=== PATIENT | male | born 1970 | race Caucasian/White ===

== ENCOUNTER → 2020-05-06 15:47 | Outpatient (CLI) | payer OTHER, SELFPAY ==
--- NOTE | 2020-05-06 07:05 | COLBX_PTH ---
PATIENT: HETAL HUSAIN LOC: [facility] U#:[id number] AGE/SX: 54/M ROOM: RE05/06/[address]: Dr. Terrence Hassan MD : 1970 BED: DIS: SPEC #: [id number] RECD: 05/06/20 15:01 STATUS: AMARIS RAE #: [id number] HEMA: 05/06/20 07:[address]: Terrence Hassan DEPT: SURGICAL PATHOLOGY RECD BY: Linda Bocanegra Tissues: Rectosigmoid junction Procedures: Surgery Specimen Level IV HEADER OPERATION: Colonoscopy with cold snare PRE-OP DIAGNOSIS: Z10.11 TISSUE SUBMITTED: Rectosigmoid colon polyp MICROSCOPIC DIAGNOSIS Rectosigmoid polyp, biopsy: Hyperplastic polyp. SJ:ralph 05/08/20 MICROSCOPIC DESCRIPTION Slides are reviewed. GROSS DESCRIPTION Received in fixative is one container labeled with the patient's name and designated rectosigmoid colon polyp. The specimen consists of one irregular fragment of light bates soft tissue that measures 0.3 x 0.1 x 0.1 cm. The specimen is totally submitted in one cassette. / SJ:ralph 05/07/20 TC:1 CPT: 45377
== END ==
PROVIDERS: Referring Provider Surgery; Visit Provider Surgery
DX: Z12.11 Encounter for screening for malignant neoplasm of colon (principal)
CPT/HCPCS: 88305

== ENCOUNTER → 2020-09-17 13:15 | Outpatient (CLI) | payer OTHER, SELFPAY ==
--- NOTE | 2020-09-17 13:19 | CT_ITS ---
STUDY: CT FACIAL BONES WITHOUT CONTRAST REASON FOR EXAM: Male, 49 years old. SINUSITIS RADIATION DOSAGE (If Supplied By Facility): CTDIvol = ( 33.45 ) mGy, DLP = ( 868.36 ) mGycm TECHNIQUE: The patient was scanned in a multi detector CT scanner. Sagittal and coronal images were reconstructed. Individualized dose optimization techniques were used for this CT. COMPARISON: None. FINDINGS: Normal soft tissue structures. Normal orbital iniguez and orbital contents. Normal nasal bones and anterior nasal spine. Normal facial bones. There is no demonstrated fracture. Air-fluid level within the posterior left maxillary sinus suggests acute maxillary sinusitis there is diffuse mucosal thickening in the bilateral ethmoid sinuses Left mastoid air cells are unremarkable, right side are fluid-filled suggesting chronic mastoiditis. There is also some sclerosis of the right mastoid again consistent with chronic right mastoiditis CT/Sinus/Facial Bone IMPRESSION: Likely acute left maxillary sinusitis Mild to moderate bilateral ethmoid sinusitis Chronic right mastoiditis Electronically Signed: Praveen Drake MD at 16:25 EST , Service support ,
== END ==
PROVIDERS: PCP Family Medicine; Referring Provider Otolaryngology; Visit Provider Otolaryngology
DX: J32.8 Other chronic sinusitis (principal)
CPT/HCPCS: 70486

== ENCOUNTER → 2020-09-22 14:50 | Outpatient (CLI) | payer OTHER, SELFPAY | PROVIDERS: PCP Family Medicine; Referring Provider Otolaryngology; Visit Provider Otolaryngology | DX: Z03.818 Encounter for observation for suspected exposure to other biological agents ruled out (principal) | CPT/HCPCS: 87635; C9803; U0002 ==

== ENCOUNTER 2021-05-13 07:28 | Emergency (ER) | payer OTHER, SELFPAY ==
[2021-05-13 07:29] VITALS: BP 169/98; PULSE 77; RESP 16; TEMP 35.6; O2SAT 97; BMI 37.6
--- NOTE | 2021-05-13 08:03 | EDS_ITS ---
HPI History of Present Illness Chief Complaint: Back Informant: patient and spouse/S.O. Onset/Context/Timing Onset: Days Context: Gradual Onset Timing: Continuous Quality: Sharp Current Severity: Mild Maximum Severity: Moderate Worsened by: improves with Movement Relieved by: Remaining Still Associated Symptoms Associated Symptoms: Radiation to Right Leg; Negative for Numbness, Tingling, Abdominal Pain, Dysuria, Urinary Retention, Urinary Incontinence, Constipation and Fecal Incontinence Narrative Narrative: 50-year-old male right lower back pain rating on his buttocks. Down his right leg. Denies any trauma. No fever. No back history of prior back surgery. No known injury. Worse with movement. Better remaining still. No bowel or bladder incontinence or retention. Prior similar symptoms: No Recent Illness/Hospitalization: No PFSH PFSH Medical History Depression Diabetes mellitus HTN (hypertension) Hyperlipidemia Home Medications atorvastatin 10 mg PO QHS 05/13/21 [History Last Taken Unknown] fluoxetine 20 mg PO DAILY 05/13/21 [History Last Taken Unknown] hydrochlorothiazide 25 mg PO DAILY 05/13/21 [History Last Taken Unknown] losartan 100 mg PO DAILY 05/13/21 [History Last Taken Unknown] metformin 500 mg PO BID 05/13/21 [History Last Taken Unknown] Allergy/AdvReac Type Severity Reaction Status Date / Time No Known Allergies Allergy Verified 05/13/21 07:31 Surgical History History of cholecystectomy Social History Smoking Status: Never smoker ROS ROS ED ROS Narrative Right lower back pain. Review of Systems ROS Unobtainable: Denies due to encephalopathy Constitutional Constitutional ED: Denies fever(s) Eyes Eyes: Denies change in vision ENT ENT ED: Denies ear pain Cardiovascular Cardiovascular: Denies chest pain Respiratory/Chest Respiratory/Chest: Denies dyspnea Gastrointestinal Gastrointestinal: Denies abdominal pain Genitourinary Genitourinary ED: Denies dysuria Musculoskeletal Musculoskeletal: Reports back pain; Denies myalgias Integumentary Denies rash Neurologic Neurologic: Denies headache(s) Psychiatric Psychiatric: Denies depression Endocrine Endocrinology: Denies polyuria Hematologic/Lymphatic Hematologic/Lymphatic: Denies easy bruising Allergic/Immunologic Allergic/Immunologic ED: Denies urticaria EXAM Physical Exam Narrative Exam Narrative: Middle-age male no acute distress vital signs stable afebrile. HEENT neck heart lung abdominal exams unremarkable. Abdomen is completely nontender. Spine nontender. From the cervical down to the lumbar. Tenderness over his right SI joint. Positive straight leg raise on the right. Both lower extremities are neurovascular intact with 5/5 motor strength. Normal sensation. No cauda equina. No saddle anesthesia. Normal medial thigh sensation. Worse with movement. Neurologic exam normal no focal motor deficits. Const Vital Signs: 05/13/21 07:29 Temperature 96.0 F L Temperature Source Temporal Pulse Rate 77 Respiratory Rate 16 Blood Pressure 169/98 H Blood Pressure Mean 121 Pulse Ox 97 Oxygen Delivery Method Room Air Positive well nourished, well developed and obese; Negative for cachectic, contractures or unkempt General Appearance ED: well developed and NAD; Negative for unkempt, cachectic, contractures or pallor Nutritional Appearance: obese; Negative for cachectic HEENT Reports moist mucous membranes Negative for trauma or tenderness Eyes PERRL and EOMs intact bilaterally Neck no lymphadenopathy and supple Resp normal respiratory effort and clear to auscultation bilaterally Effort and Inspection: Negative for pain with movement Auscultation: Negative for rales, rhonchi or wheezes Cardio regular rate, regular rhythm, S1 normal heart sound, S2 normal heart sound and no murmurs GI normal to inspection, nondistended, normoactive bowel sounds, soft to palpation, non-tender, non-distended and no masses Inspection: Negative for abdominal distention Auscultation: Negative for hyperactive bowel sounds Palpation: Negative for tender, guarding or rebound tenderness present Back/Spine no thoracic nor lumbar tenderness Back/Spine Narrative: Right SI tenderness. Positive straight leg raise on the right. General Back: Negative for CVA tenderness or scar(s) Cervical Spine: Negative for cervical spine tenderness and Negative for parac ervical muscle tenderness Thoracic Spine / Upper Back: Negative for paraspinal muscle tenderness Lumbar Spine / Lower Back: straight leg raise positive right; Negative for straight leg raise negative bilaterally Extremity normal to inspection General Extremety ED: Negative for edema or tenderness General Extremity: Negative for edema Psych mental status grossly normal Appearance: Negative for unkempt Skin no rashes or lesions noted and no wounds General Skin Exam: Negative for jaundice or pallor MDM MDM MDM Narrative Medical decision making narrative: Middle-age male exam and history are consistent with acute right sciatica. No signs of spinal cord compression. Treated with IM morphine, Toradol and p.o. Zofran. Discharged home on anti- inflammatories. Follow-up if not improving. Return if worse. Discussed at length with both he and his . Discharge Plan Triage Chief Complaint: Back ED Provider: Sharan Davila Dx/Rx/DC Orders Clinical Impression: Sciatica Instructions: ED Sciatica Prescriptions: No Action metformin 500 mg Tablet 500 mg PO BID RF: 0 atorvastatin 10 mg tablet 10 mg PO QHS RF: 0 hydrochlorothiazide 25 mg Tablet 25 mg PO DAILY RF: 0 losartan 100 mg Tablet 100 mg PO DAILY RF: 0 fluoxetine 20 mg Capsule 20 mg PO DAILY RF: 0 Primary Care Provider: Gonzalo Jack Referrals: Gonzalo Jack MD [Primary Care Provider] - 1 Week if not improving Activity Restrictions/Additional Instructions: Motrin 600 mg 3 to at most 4 times a day with food on your stomach. This should decrease inflammation and eventually start improving the pain. Ice to your right buttock area where it hurts the most. Follow-up with your doctor if not improving. Return to the emergency department if bowel or bladder incontinence or unable to urinate or move your bowels. Also if you would develop a fever or pain is significantly worse with weakness in your lower extremities. Disposition Disposition: Home, Self Care
[2021-05-13] MEDS: Ketorolac 60 MG/2 ML Vial IM (08:21)
[2021-05-13] MEDS: Ondansetron ODT 4 MG Tablet PO (08:21)
[2021-05-13] MEDS: morphine 10 MG/ML Syringe IM (08:22)
[2021-05-13 08:45] VITALS: BP 164/66; PULSE 75; RESP 16; O2SAT 98
== END 2021-05-13 08:46 | disposition home or self-care (01) ==
LOC: ED 08:11
PROVIDERS: Emergency Provider Emergency Medicine; PCP Family Medicine
DX: M54.31 Sciatica, right side (principal); E66.9 Obesity, unspecified; E78.5 Hyperlipidemia, unspecified; E11.9 Type 2 diabetes mellitus without complications; I10 Essential (primary) hypertension; F32.9 Major depressive disorder, single episode, unspecified; Z79.84 Long term (current) use of oral hypoglycemic drugs; Z79.899 Other long term (current) drug therapy
CPT/HCPCS: 96372; 99282

== ENCOUNTER 2024-03-04 20:15 | Emergency (ER) | payer OTHER, SELFPAY ==
[2024-03-04 20:15] VITALS: BP 193/100; PULSE 83; RESP 19; TEMP 36.2; O2SAT 97; BMI 36.9
--- NOTE | 2024-03-04 20:43 | CT_ITS ---
EXAM: CT HEAD WITHOUT INTRAVENOUS CONTRAST CLINICAL INDICATION: headache TECHNIQUE: Multiple axial images were obtained of the head without intravenous contrast. This CT exam was performed using one or more of the following dose reduction techniques: automated exposure control, adjustment of the mA and/or kV according to patient size, and/or use of iterative reconstruction technique. RADIATION DOSE: CTDIvol = 44.99 mGy, DLP = 863.60 mGy-cm COMPARISON: No relevant prior studies available. FINDINGS: BRAIN AND EXTRA-AXIAL SPACES: Unremarkable. No intra- or extra-axial hemorrhage. No evidence of acute infarct. No intracranial mass or mass effect. There is preservation of the mcmanus/white matter interface. Posterior fossa structures are unremarkable. Ventricles are appropriate for age. No hydrocephalus. Basal cisterns are patent. BONES/JOINTS: Unremarkable. No discrete lytic or blastic abnormalities. SINUSES: Unremarkable as visualized. Clear. MASTOID AIR CELLS: Unremarkable. Clear. ORBITS: Visualized globes, extraocular muscles, optic nerves and retrobulbar fat appear unremarkable. CT/Brain/Head without Contrast IMPRESSION: Negative head/brain CT without intravenous contrast. Electronically Signed: Donny Patel MD at 21:30 EDT ,
--- NOTE | 2024-03-04 20:44 | EKG12_ITS ---
Test Reason : CP Blood Pressure : / mmHG Vent. Rate : 075 BPM Atrial Rate : 075 BPM P-R Int : 156 ms QRS Dur : 092 ms QT Int : 420 ms P-R-T Axes : 052 043 020 degrees QTc Int : 469 ms Normal sinus rhythm Nonspecific T wave abnormality Abnormal ECG Confirmed by Naveed Brown ([id number]), field map editor MARY WALSH ([id number]) on 03/05/2024 7:38:40 AM Referred By: Confirmed By:Naveed Brown
--- NOTE | 2024-03-04 20:44 | ED.VIS.CHEST ---
HPI History of Present Illness Chief Complaint: Chest Pain Informant: patient and spouse/S.O. Narrative Narrative: 53-year-old male presenting to the emergency room with chest pain. Patient states that this morning prior to going shopping he developed a pressure in the right posterior aspect of his head. He notes a chest pressure. He notes a sensation that he just cannot seem to take a deep breath. He does not necessarily feel short of breath or breathing harder than normal. He notes some heartburn. He notes his blood pressure has been higher than normal. He had a recent increase of his HCTZ from 25 to 50 mg/day. No reported fevers. No known malignancies. He has blood pressures for the past several months on his phone. These are taken at different times day and at no specific intervals. Over the month of February his blood pressures have been around 1 6170 systolic and 90-100 diastolic. At the time of this dictation the monitor showing 185/93. Patient has been in a boot orthosis of the left foot and leg due to partial Achilles tendon tear surgery in January. [facility] Medical History Depression Hyperlipidemia Diabetes mellitus HTN (hypertension) Home Medications ?Medication ?Instructions ?Recorded ?Last Taken ?Type atorvastatin 10 mg tablet 10 mg PO QHS 05/13/21 Unknown History fluoxetine 20 mg capsule 20 mg PO DAILY 05/13/21 Unknown History hydrochlorothiazide 25 mg tablet 25 mg PO DAILY 05/13/21 Unknown History losartan 100 mg tablet 100 mg PO DAILY 05/13/21 Unknown History metformin 500 mg tablet 500 mg PO BID 05/13/21 Unknown History potassium chloride 20 mEq 20 meq PO DAILY #5 tabs 03/04/24 Unknown Rx tablet,extended release Allergy/AdvReac Type Severity Reaction Status Date / Time No Known Allergies Allergy Verified 03/04/24 20:16 Surgical History History of cholecystectomy Social History Smoking Status: Former smoker ROS ROS ED Constitutional Constitutional ED: Reports sweats; Denies chills, fever(s) or weight loss Eyes Eyes: Denies blurry vision, change in vision or diplopia ENT ENT ED: Denies ear pain, rhinorrhea or sore throat Cardiovascular Cardiovascular: Reports chest pain; Denies orthopnea, palpitations or racing heartbeat Respiratory/Chest Respiratory/Chest: Reports dyspnea; Denies cough or orthopnea Gastrointestinal Gastrointestinal: Reports other Details: Heartburn ; Denies abdominal pain, diarrhea, nausea or vomiting Genitourinary Genitourinary ED: Denies dysuria, hematuria or urinary frequency Musculoskeletal Musculoskeletal: Denies arthralgias, back pain or myalgias Integumentary Denies abscess or rash Neurologic Neurologic: Reports headache(s); Denies paresthesias or weakness Psychiatric Psychiatric: Denies anxiety, depression, suicidal ideation or suicidal thoughts Endocrine Endocrinology: Denies polydipsia, polyphagia or polyuria Allergic/Immunologic Allergic/Immunologic ED: Denies mouth swelling, tongue swelling or urticaria EXAM Physical Exam Const Vital Signs: 03/04/24 20:15 03/04/24 21:15 03/04/24 22:00 Temperature 97.2 F L Temperature Source Temporal Pulse Rate 83 80 72 Respiratory Rate 19 H 17 15 Blood Pressure 193/100 H 174/92 H 164/92 H Blood Pressure Mean 131 115 113 Pulse Ox 97 96 95 Oxygen Delivery Method Room Air Positive well nourished, well developed and obese General Appearance ED: well developed and NAD Nutritional Appearance: obese HEENT Reports normocephalic, head/scalp atraumatic and moist mucous membranes Eyes PERRL and EOMs intact bilaterally Neck no lymphadenopathy, supple and no JVD Resp normal respiratory effort and clear to auscultation bilaterally Cardio regular rate, regular rhythm and no murmurs GI normal to inspection, nondistended, normoactive bowel sounds and non-tender Palpation: soft Back/Spine no CVA tenderness and normal ROM Extremity normal to inspection General Extremety ED: Negative for edema General Extremity: Negative for edema Neuro oriented x3 and CN's II-XII intact bilaterally Sensorium / Orientation: alert Motor Exam: strength 5/5 throughout Psych mental status grossly normal Mood & Affect: Negative for depressed or tearful Skin no rashes or lesions noted and no wounds MDM MDM MDM Narrative Medical decision making narrative: Differential diagnosis includes but not limited to intracranial hemorrhage acute coronary syndrome pulmonary embolism pneumothorax hypertensive urgency/emergency electrolyte abnormalities acute kidney injury CT the brain demonstrates no acute findings. EKG is sinus rhythm with no ischemic changes. D-dimer and troponin are negative. BNP is 19.4. Normal creatinine at 0.89 with a BUN of 26 potassium slightly low at 3.2 hemoglobin 13.2 white count of 6.7. My independent interpretation of the chest x-ray is no acute process. Patient received supplemental potassium. His blood pressure is currently down to 164/92. Recommend continued oral potassium replacement. I recommend following up with primary care. Monitor for any changes return if worsening or concerns. History & Record Review Discussion w/independent historian: Patient and Significant other Lab Data Attestation: I reviewed the patient's lab results. Labs: Laboratory Results - last 24 hr 03/04/24 20:50 WBC 6.7 RBC 4.07 L Hgb 13.2 Hct 38.2 L MCV 93.9 MCH 32.4 H MCHC 34.6 RDW Std Deviation 42.1 RDW Coeff of Darrick 12.2 Plt Count 185 MPV 8.7 Immature Gran % (Auto) 0.300 Neut % (Auto) 44.7 L Lymph % (Auto) 41.6 H [place] % (Auto) 7.3 Eos % (Auto) 5.4 H Baso % (Auto) 0.7 Absolute Neuts (auto) 3.0 Absolute Lymphs (auto) 2.79 Nucleated RBC % 0 D-Dimer Quant (PE/DVT) < 0.27 L Sodium 140 Potassium 3.2 L Chloride 104 Carbon Dioxide 28.0 Anion Gap 8 BUN 26 H Creatinine 0.89 Estim Creat Clear Calc 125.16 Est GFR (MDRD) Af Amer 115 Est GFR (MDRD) Non-Af 95 BUN/Creatinine Ratio 29.3 H Glucose 133 H Calcium 9.9 Total Bilirubin 0.60 AST 51 H ALT 137 H Alkaline Phosphatase 57 Troponin I High Sens 8 B-Natriuretic Peptide 19.4 Total Protein 6.6 Albumin 3.5 Globulin 3.1 Albumin/Globulin Ratio 1.1 Radiography Diagnostic Testing: Clinical Impression(s) from Imaging Studies Brain CT 03/04/24 20:43 IMPRESSION: Negative head/brain CT without intravenous contrast. Electronically Signed: Donny Patel MD at 21:30 EDT , Chest X-Ray 03/04/24 21:10 IMPRESSION: No radiographic evidence of acute cardiopulmonary disease. Electronically Signed: Donny Patel MD at 21:30 EDT , EKG Initial EKG: Attestation: I personally reviewed and interpreted this EKG as follows: Comments: Normal sinus rhythm ventricular rate of [address] elevation or depression noted Discharge Plan Triage Chief Complaint: Chest Pain ED Provider: Mitch Perdue Dx/Rx/DC Orders Clinical Impression: Hypertension, Chest pain, Acute hypokalemia, Headache Instructions: ED Chest Pain, Uncertain Cause, ED Hypokalemia Prescriptions: New potassium chloride 20 mEq tablet extended release 20 meq PO DAILY Qty: 5 0RF No Action metformin 500 mg Tablet 500 mg PO BID atorvastatin 10 mg tablet 10 mg PO QHS hydrochlorothiazide 25 mg Tablet 25 mg PO DAILY losartan 100 mg Tablet 100 mg PO DAILY fluoxetine 20 mg Capsule 20 mg PO DAILY Primary Care Provider: Gonzalo Jack Referrals: Gonzalo Jack MD [Primary Care Provider] - 1 Week Print Language: Korean Disposition Disposition: Home, Self Care
[2024-03-04 21:03] LABS: Absolute Lymphocyte Count 2.79 X10^3/uL (0.83-4.51); Basophil# 0.05 X10^3/uL; Basophil% 0.7 % (0-1); Eosinophil# 0.36 X10^3/uL; Eosinophils% 5.4 % (0-5); Hematocrit 38.2 % (40-54); Hemoglobin 13.2 g/dL (13.0-16.5); Lymphocyte # 2.79 X10^3/ul (0.83-4.51); Lymphocyte % 41.6 % (19-41); Mean Corp Hgb Conc 34.6 g/dL (32-36); Mean Corpuscular Hgb 32.4 pg (27.0-32.0); Mean Corpuscular Volume 93.9 fL (80-94); Mean Platelet Vol. 8.7 fl (6.2-12.0); Monocyte# 0.49 X10^3/uL; Monocyte% 7.3 % (0-10); NRBC Flagged by Analyzer 0 % (0-5); Neutrophil # 2.99 X10^3/uL (2.7-7.7); Neutrophil % 44.7 % (47-70); Platelet Count 185 K/mm3 (150-450); RBC Distribution Width CV 12.2 % (11.6-14.6); RBC Distribution Width SD 42.1 fl (35.1-43.9); Red Blood Count 4.07 M/mm3 (4.6-6.2); White Blood Count 6.7 K/mm3 (4.4-11.0)
--- NOTE | 2024-03-04 21:10 | RAD_ITS ---
EXAM: XR CHEST, 1 VIEW CLINICAL INDICATION: chest pain TECHNIQUE: Frontal view of the chest. COMPARISON: No relevant prior studies available. FINDINGS: LUNGS AND PLEURAL SPACES: Unremarkable. No consolidation or edema. No pneumothorax. No effusion. HEART: Unremarkable. Cardiac silhouette not enlarged. MEDIASTINUM: Central airways and mediastinal contour are unremarkable. BONES/JOINTS: Unremarkable. No acute fracture. SOFT TISSUES: Unremarkable. RAD/Chest 1 View (Portable) IMPRESSION: No radiographic evidence of acute cardiopulmonary disease. Electronically Signed: Donny Patel MD at 21:30 EDT ,
[2024-03-04 21:15] VITALS: BP 174/92; PULSE 80; RESP 17; O2SAT 96
[2024-03-04 21:24] LABS: ALB/GLOB Ratio 1.1 RATIO (0.9-2.4); AST(SGOT) 51 U/L (15-37); Alanine Aminotransfer ALT/SGPT 137 U/L (16-61); Albumin, Serum 3.5 g/dL (3.2-5.0); Alkaline Phosphatase 57 U/L (45-117); Anion Gap 8 (5-15); BUN 26 mg/dL (7-18); BUN/Creat Ratio 29.3 RATIO (10-20); Calcium,Total 9.9 mg/dL (8.5-10.1); Chloride 104 mmol/L (98-107); Creatinine, Serum 0.89 mg/dL (0.70-1.30); EST Glomerular Filtration Rate 95 mL/min (>60); Est Glom Filt Rate - Afr Amer 115 mL/min (>60); Estimated Creatinine Clearance 125.16 ml/min; Globulin 3.1 g/dL (2.2-4.2); Glucose 133 mg/dL (74-106); Potassium 3.2 mmol/L (3.5-5.1); Protein, Total 6.6 g/dL (6.4-8.2); Sodium Level 140 mmol/L (136-145); Troponin-I HS 8 pg/mL (3.0-78.0)
[2024-03-04 21:25] LABS: BNP,B-Type NATRIURETIC PEPTIDE 19.4 pg/mL (0-100)
[2024-03-04 22:00] VITALS: BP 164/92; PULSE 72; RESP 15; O2SAT 95
[2024-03-04 22:14] LABS: D-Dimer Quantitative (DVT/PE) < 0.27 FEU/ug/m (0.27-0.49)
[2024-03-04] MEDS: Potassium Chloride Oral Tablet 20 MEQ PO (22:57)
[2024-03-04 23:00] VITALS: BP 167/89; PULSE 73; RESP 17; O2SAT 95
== END 2024-03-04 23:03 | disposition home or self-care (01) ==
PROVIDERS: Emergency Provider Emergency Medicine; PCP Family Medicine; Visit Provider Emergency Medicine
DX: I10 Essential (primary) hypertension (principal); E11.9 Type 2 diabetes mellitus without complications; R07.9 Chest pain, unspecified; R51.9 Headache, unspecified; E87.6 Hypokalemia; Z79.899 Other long term (current) drug therapy; Z87.891 Personal history of nicotine dependence
CPT/HCPCS: 70450; 71045; 80053; 83880; 84484; 85025; 85379; 93005; 99283

== ENCOUNTER 2025-04-05 15:56 | Emergency (ER) | payer OTHER, SELFPAY ==
[2025-04-05 15:58] VITALS: BP 145/97; PULSE 86; RESP 18; TEMP 36.8; O2SAT 97; BMI 36.6
--- OUTSIDE RECORDS SUMMARY | 2025-04-05 18:12 | XMS RPT_ITS ---
Author Name Auto Generated Organization OHIP Care Team Providers Care Right Of Way Supervisor Name Role Phone FRED MICHELE Attending Unavaila IKE Gerard Primary Care Unava ilable FRED MICHELE Referring Unavaila IKE Gerard Primary Care Unava ilable IKE JACK Referring Unavailab IKE Lam Primary Care Unavailab THAD Irby Attending Unavailable FRED MICHELE Referring IKE Patterson Primary Care Unavailab THAD Irby Attending Unavailable FRED MICHELE Referring EvelynvaIKE Alejandro Primary Care Unavailab THAD Irby Attending Unavailable FRED MICHELE Referring EvelynvaIKE Alejandro Primary Care Unavailab THAD Irby Attending Unavailable FRED MICHELE Referring EvelynvaIKE Alejandro Primary Care Unavailab IKE Lam Primary Care Unavailab IKE Lam Referring Unavailab IKE Lam Primary Care Unavailab IKE Lam Attending Unavailab IKE Lam Primary Care Unavailab IKE Lam Referring Unavailab IKE Lam Primary Care Unavailab IKE Lam Attending Unavailab IKE Lam Attending Unavailab IKE Lam Primary Care Unavailab IKE Lam Primary Care Unavailab IKE Lam Referring Unavailab le SELF Referring Unavailable IKE JACK Primary Care Unavailab le FRED MICHELE Attending IKE Patterson Primary Care Unavailab KRISTINA Crawford Attending Unavailable IKE JACK Primary Care Unavailab le TESTRAKEGRZEGORZ Attending Unavailable IKE JACK Primary Care Unavailab IKE Lam Primary Care Unavailab IKE Lam Attending Unavailab IKE Lam Primary Care Unavailab IKE Lam Referring Unavailab le IKE JACK Primary Care Unavailab le IKE JACK Attending Unavailab le IKE JACK Primary Care Unavailab le PODLOGLIDIA WHYTE Attending Unavailable IKE JACK Primary Care Unavailab IKE Lam Referring Unavailab THAD Irby Attending Unavailable FRED MICHELE Referring IKE Patterson Primary Care Unavailab le IKE JACK Attending Unavailab IKE Lam Primary Care Unavailab le IKE JACK Primary Care Unavailab IKE Lam Referring Unavailab le IKE JACK Primary Care Unavailab le PODLOGLIDIA WHYTE Attending Unavailable IKE JACK Primary Care Unavailab IKE Lam Referring Unavailab le IKE JACK Attending Unavailab IKE Lam Primary Care Unavailab le FRED MICHELE Attending IKE Patterson Primary Care Unavailab le PROBLEMS DATE TYPE CONDITION / CODE ATTENDING STATUS [facility] 04/05/2025 Active Insect bite of l eft forearm, initial encounter / S50.862A(ICD-10) KRISTINA AGUIRRE [facility] 04/05/2025 Active Insect bite of l eft forearm, initial encounter / W57.XXXA(ICD-10) KRISTINA AGUIRRE [facility] 03/13/2025 Admitting Diagnosis Achilles tendinitis, right leg / M76.61(ICD-10) FRED MICHELE [facility] 03/13/2025 Admitting Diagnosis Pain in right foot / M79.671(ICD-10) DAPHNEBarreraFRED MEZA [facility] 02/26/2025 Active Tinea pedis of b oth feet / B35.3(ICD-10) GRZEGORZ NASH [facility] 02/23/2025 Active Cellulitis of sk in / L03.90(ICD-10) IKE JACK [facility] 02/20/2025 Active Screening for prostate cancer / Z12.5(ICD-10) NA [facility] 05/18/2024 Active Primary hyperten wang / I10(ICD-10) IKE JACK [facility] 04/17/2021 Active Mixed hyperlipid emia / E78.2(ICD-10) IKE JACK [facility] 06/27/2020 Active Current moderate episode of major depressive disorder without prior episode (HCC) / F32.1(ICD-10) IKE JACK [facility] 07/14/2017 Active Sleep apnea, unspecified type / G47.30(ICD-10) IKE JACK [facility] 07/14/2017 Active Obesity (BMI 30-39.9) / E66.9(ICD-10) IKE JACK [facility] 02/20/2025 Active Annual physical exam / Z00.00(ICD-10) IKE JACK [facility] 02/20/2025 Active Tendonitis, Achilles, right / M76.61(ICD-10) IKE JACK [facility] 02/20/2025 Active Encounter for immunization / Z23(ICD-10) IKE JACK [facility] 11/30/2024 Active Erectile dysfunction, unspecified erectile dysfunction type / N52.9(ICD-10) NA [facility] 11/30/2024 Active Type 2 diabetes mellitus without complication, without long-term current use of insulin (HCC) / E11.9(ICD-10) IKE JACK [facility] 11/30/2024 Active Blood blister / T14.8XXA(ICD-10) IKE JACK [facility] 08/15/2024 Active Diabetes mellitu s type II (HCC) / E11.9(ICD-10) IKE JACK [facility] 11/16/2024 Active Essential hypertension / I10(ICD-10) IKE JACK [facility] 11/16/2024 Active Productive cough / R05.8(ICD-10) IKE JACK [facility] 05/18/2024 Active Resistant hypertension / I1A.0(ICD-10) NA [facility] 08/03/2024 Active Urinary frequenc y / R35.0(ICD-10) NA [facility] 08/03/2024 Active Glucosuria / R81(ICD-10) NA [facility] 07/17/2024 Active Localized swelli ng of left lower leg / R22.42(ICD-10) YOMAIRA [facility] 05/18/2024 Active Hypertension, unspecified type / I10(ICD-10) PODLOGLIDIA WHYTE [facility] 05/18/2024 Active Depression, unspecified depression type / F32.A(ICD-10) PODLOGLIDIA WHYTE [facility] 05/18/2024 Active Delayed ejaculat ion / 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 Author Type: Nurse Practitioner Type: Progress Notes Filed: 04/05/2025 19:11 Note Text: Jojo Husain is a 54 year old male. The history is provided by the patient. No assistant speech language pathologist was used. HPI Hetal Husain is a 54 year old male who presents today for CC of insect bite that occurred 4 days ago. He did not see the insect. He states he felt a sting on arm and then had itching after. He is having redness, warmth to touch with slight streaking, he denies any fever, chills body aches or swollen lymph nodes, no purulent drainage. He has not used any treatment or medications. SOCIAL HISTORY[1] PAST MEDICAL HISTORY Diagnosis Date Achilles tendinitis of left lower extremity Achilles tendinitis, left leg Current moderate episode of major depressive disorder without prior episode (HCC) Diabetes mellitus type II (HCC) Elevated LFTs Essential hypertension Hepatic steatosis Hyperplastic colonic polyp Hypertension Mixed hyperlipidemia Obesity (BMI 30-39.9) Sleep apnea not using CPAP Tobacco use disorder I have confirmed and edited as necessary, the [facility] Review of Systems Constitutional: Negative for fever. Musculoskeletal: Negative for arthralgias and neck pain. Skin: Negative for color change. Neurological: Negative for headaches. Psychiatric/Behavioral: Negative for confusion. Objective BP 146/93 Pulse 77 Temp 36.4 ?C (97.5 ?F) Resp 18 Wt 120 kg (264 lb 8.8 oz) SpO2 96% BMI 37.96 kg/m? Physical Exam Constitutional: General: He is not in acute distress. HENT: Head: Normocephalic and atraumatic. Eyes: Conjunctiva/sclera: Conjunctivae normal. Pupils: Pupils are equal, round, and reactive to light. Pulmonary: Effort: Pulmonary effort is normal. Musculoskeletal: Cervical back: Normal range of motion and neck supple. Skin: General: Skin is warm and dry. Findings: Erythema present. Comments: Insect bite with streaking noted. Slightly warm to touch. Neurological: Mental Status: He is alert and oriented to person, place, and time. ASSESSMENT/PLAN: 1. Insect bite of left forearm, initial encounter - ICD9: 913.4, E906.4, ICD10: S50.862A, W57.XXXA Inflammatory versus cellulitis Will start on keflex 500 mg qid Zyrtec 10 mg bid Wound care discussed Follow up with pcp prn. Precautions when to go to ED Diagnosis and treatment plan were discussed and questions were answered to the patient's satisfaction. Pt acknowledged understanding of concepts and follow up plan. Specific signs and symptoms that would indicate the need for higher level of care were discussed in detail warranting prompt ER evaluation. Kristina Aguirre APRN.WIRELESS NETWORK ENGINEER [1] Social History Tobacco Use Smoking status: Every Day Current packs/day: 0.50 Average packs/day: 0.5 packs/day for 25.0 years (12.5 ttl pk-yrs) Types: Cigarettes Passive exposure: Never Smokeless tobacco: Former Types: Snuff Quit date: 07/14/2015 Vaping Use Vaping status: Former Substances: Flavoring Devices: Pre-filled or refillable cartridge Substance Use Topics Alcohol use: Yes Alcohol/week: 14.0 - 27.0 standard drinks of alcohol Types: 14 - 27 Standard drinks or equivalent per week Comment: 8 drinks most Tuesday Drug use: Not Currently Types: Marijuana CNOV Observed: 04/05/2025 6:30 PM Status: COMPLETED Source: [facility] Office Visit ([facility]) HETAL HUSAIN ([id number]) 1970 M Date Time Provider Department 04/05/25 6:30 PM KRISTINA AGUIRRE During your visit today, we recorded the following information about you: Temperature Pulse Respiration Blood pressure 97.5 degrees 77/minute 18/minute 146/93 Weight 120 kg Kristina Aguirre APRN.CNP 04/05/2025 7:11 PM Signed Subjective Hetal Husain is a 54 year old male. The history is provided by the patient. No assistant speech language pathologist was used. HPI Hetal Husain is a 54 year old male who presents today for CC of insect bite that occurred 4 days ago. He did not see the insect. He states he felt a sting on arm and then had itching after. He is having redness, warmth to touch with slight streaking, he denies any fever, chills body aches or swollen lymph nodes, no purulent drainage. He has not used any treatment or medications. SOCIAL HISTORY[1] PAST MEDICAL HISTORY Diagnosis Date Achilles tendinitis of left lower extremity Achilles tendinitis, left leg Current moderate episode of major depressive disorder without prior episode (HCC) Diabetes mellitus type II (HCC) Elevated LFTs Essential hypertension Hepatic steatosis Hyperplastic colonic polyp Hypertension Mixed hyperlipidemia Obesity (BMI 30-39.9) Sleep apnea not using CPAP Tobacco use disorder I have confirmed and edited as necessary, the [facility] Review of Systems Constitutional: Negative for fever. Musculoskeletal: Negative for arthralgias and neck pain. Skin: Negative for color change. Neurological: Negative for headaches. Psychiatric/Behavioral: Negative for confusion. Objective BP 146/93 Pulse 77 Temp 36.4 ?C (97.5 ?F) Resp 18 Wt 120 kg (264 lb 8.8 oz) SpO2 96% BMI 37.96 kg/m? Physical Exam Constitutional: General: He is not in acute distress. HENT: Head: Normocephalic and atraumatic. Eyes: Conjunctiva/sclera: Conjunctivae normal. Pupils: Pupils are equal, round, and reactive to light. Pulmonary: Effort: Pulmonary effort is normal. Musculoskeletal: Cervical back: Normal range of motion and neck supple. Skin: General: Skin is warm and dry. Findings: Erythema present. Comments: Insect bite with streaking noted. Slightly warm to touch. Neurological: Mental Status: He is alert and oriented to person, place, and time. ASSESSMENT/PLAN: 1. Insect bite of left forearm, initial encounter - ICD9: 913.4, E906.4, ICD10: S50.862A, W57.XXXA Inflammatory versus cellulitis Will start on keflex 500 mg qid Zyrtec 10 mg bid Wound care discussed Follow up with pcp prn. Precautions when to go to ED Diagnosis and treatment plan were discussed and questions were answered to the patient's satisfaction. Pt acknowledged understanding of concepts and follow up plan. Specific signs and symptoms that would indicate the need for higher level of care were discussed in detail warranting prompt ER evaluation. Kristina Aguirre APRN.WIRELESS NETWORK ENGINEER [1] Social History Tobacco Use Smoking status: Every Day Current packs/day: 0.50 Average packs/day: 0.5 packs/day for 25.0 years (12.5 ttl pk-yrs) Types: Cigarettes Passive exposure: Never Smokeless tobacco: Former Types: Snuff Quit date: 07/14/2015 Vaping Use Vaping status: Former Substances: Flavoring Devices: Pre-filled or refillable cartridge Substance Use Topics Alcohol use: Yes Alcohol/week: 14.0 - 27.0 standard drinks of alcohol Types: 14 - 27 Standard drinks or equivalent per week Comment: 8 drinks most Tuesday Drug use: Not Currently Types: Marijuana Kristina Aguirre APRN.CNP 04/05/2025 7:00 PM Signed Wound Care - Keep the area clean and dry -Clean with soap and water . Apply mupirocin ointment 2 - 3 times a day. -Tylenol or Ibuprofen for discomfort Monitor for worsening streaking, fever chills, or body aches - if occurs to ED for further treatment. Keflex as ordered Zytec 10 mg bid Allergies As of Date: 04/05/2025 Noted Allergy Reaction VIAGRA (SILDENAFIL) 02/20/2025 14 - Other: See Comments Comments: Headache, flushed LISINOPRIL (BULK) 07/14/2017 3 - Cough WELLBUTRIN (BUPROPION) 09/06/2023 14 - Other: See Comments Comments: Anxiety ZOLOFT (SERTRALINE) 08/11/2020 14 - Other: See Comments Comments: Sexual side effects. Date Reviewed: 04/05/2025 Reviewed by: Sasha Leonardo LPN - Fully Assessed Reason for Visit: Trauma [112] Cmt: Left forearm, swelling redness, streaking, warmth x 4 days Primary Visit Diagnosis:Insect bite of left forearm, initial encounter [S50.862A, W57.XXXA] Order(s):cephALEXin (KEFLEX) 500 mg capsuleTake 1 capsule by mouth four times daily for 7 days.Disp: 28 capsuleRfl: 0 mupirocin (BACTROBAN) 2 % ointmentApply 1 application to affected area three times a day.Disp: 30 gRfl: 0 Prescriptions as of 04/05/2025 - meloxicam (MOBIC) 15 mg tablet Take 15 mg by mouth once daily. - cephALEXin (KEFLEX) 500 mg capsule Take 1 capsule by mouth four times daily for 7 days. - mupirocin (BACTROBAN) 2 % ointment Apply 1 application to affected area three times a day. - semaglutide (OZEMPIC) 0.25 mg or 0.5 mg (2 mg/3 mL) pen Inject 0.5 mg subcutaneously one time a week. - ciclopirox (LOPROX) 0.77 % cream Apply 1 application to affected area two times a day. - glimepiride (AMARYL) 4 mg tablet Take 1 tablet by mouth daily with breakfast. - atorvastatin (LIPITOR) 10 mg tablet Take 1 tablet by mouth daily at bedtime. For cholesterol. - DULoxetine DR (CYMBALTA) 20 mg capsule Take 1 capsule by mouth once daily. - potassium chloride (K-TAB) 10 mEq tablet Take 1 tablet by mouth daily with breakfast. - metFORMIN (GLUCOPHAGE) 1,000 mg tablet Take 1 tablet by mouth two times a day with meals. - losartan (COZAAR) 100 mg tablet Take 1 tablet by mouth once daily. - amLODIPine (NORVASC) 5 mg tablet Take 1 tablet by mouth once daily. - metoprolol succinate ER (TOPROL XL) 100 mg Take 1 tablet by mouth once daily. - hydroCHLOROthiazide 50 mg tablet Take 1 tablet by mouth once daily. - aspirin, enteric coated (ADULT LOW DOSE ASPIRIN) 81 mg EC tablet Take 1 tablet by mouth once daily. - blood sugar diagnostic (BLOOD GLUCOSE TEST) test strip Test blood sugar(s) 1 times daily. Dx: Type 2 DM - Uncontrolled E11.65 Insulin: No - Lancets Test blood sugar(s) 1 times daily. Dx: Type 2 DM - Uncontrolled E11.65 Insulin: No - COMPOUNDED PRESCRIPTION Take by mouth once daily. 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 Apply mupirocin ointment 2 - 3 times a day. -Tylenol or Ibuprofen for discomfort Monitor for worsening streaking, fever chills, or body aches - if occurs to ED for further treatment. Keflex as ordered Zytec 10 mg bid Prescriptions ordered this encounter Disp Refills Start End CEPHALEXIN 500 MG CAPSULE 28 c* 0 04/05/2025 04/12/2025 Class: Print RX Route: PO Sig: Take 1 capsule by mouth four times daily for 7 days. MUPIROCIN 2 % TOPICAL OINTMENT 30 g 0 04/05/2025 Class: Print RX Route: TOP Sig: Apply 1 application to affected area three times a day. Medications Discontinued During This Encounter Prescriptions - naproxen (NAPROSYN) 500 mg tablet (Discontinued) Take 1 tablet by mouth two times a day as needed. Take with food. Encounter Status:Closed by KRISTINA AGUIRRE on 04/05/25 XR FOOT RIGHT 3+ VIEWS Observed: 025 2:25 PM Status: F Source: [facility] Interpreted By: Pallavi Garcia, STUDY: XR FOOT RIGHT 3+ VIEWS; 03/13/2025 2:34 pm INDICATION: Signs/Symptoms:Pain. COMPARISON: None. ACCESSION NUMBER(S): [id number] ORDERING CLINICIAN: FRED MICHELE FINDINGS: No acute fracture or dislocation is seen. No soft tissue swelling is identified. No erosions or periosteal reaction is seen. No radiopaque foreign bodies are seen. Calcaneal spur is seen. IMPRESSION: Calcaneal spurs. MACRO: None Signed by: Priscilla Garcia 03/14/2025 7:07 PM Dictation workstation: [id number] XR ANKLE RIGHT 3+ VIEWS Observed: 2024 2:25 PM Status: F Source: [facility] Interpreted By: Pallavi Garcia, STUDY: XR ANKLE RIGHT 3+ VIEWS; 03/13/2025 2:34 pm INDICATION: Signs/Symptoms:pAIN. COMPARISON: None. ACCESSION NUMBER(S): [id number] ORDERING CLINICIAN: FRED MICHELE FINDINGS: Deformities of the distal fibula and tibia are seen, which most likely related to remote healed fractures. No acute fracture or dislocation is noted. Calcaneal spurs are identified. IMPRESSION: Probably remote healed fractures of the distal tibia and fibula. No acute fracture or dislocation. MACRO: None Signed by: Priscilla Garcia 03/14/2025 7:07 PM Dictation workstation: [id number] PROGRESS Observed: 02/26/2025 10:38 AM Status: COMPLETED Source: [facility] ID: [id number] Author: GRZEGORZ NASH, ? Service: ? Author Type: Physician Type: Progress Notes Filed: 02/26/2025 10:39 Note Text: Subjective Hetal Husain is a 54-year-old male with a history of diabetes mellitus, presenting for evaluation of tinea pedis. Hetal reports a 2-week history of tinea pedis, which has not responded to his usual [id number] topical treatment. He typically applies an antifungal cream between his toes, which usually resolves the condition within a few days. However, this episode has progressively worsened, prompting him to seek medical attention on 02/23. During that visit, he was prescribed oral terbinafine and doxycycline. He inquired about continuing the use of topical cream but was advised to allow the area to dry. Since initiating the prescribed medications, he notes improvement in the condition, with the affected areas appearing atmospheric drier tender and showing signs of healing. He denies significant gastrointestinal upset from the medications. Hetal mentions that he experiences tinea pedis frequently, but not to this severity. He describes his usual symptoms as mild desquamation, which he manages by manually removing the affected skin. He denies any known allergies to Betadine. Gastrointestinal: (+) upset stomach Skin: (+) foot pruritus PAST MEDICAL HISTORY Diagnosis Date Achilles tendinitis of left lower extremity Achilles tendinitis, left leg Current moderate episode of major depressive disorder without prior episode (HCC) Diabetes mellitus type II (HCC) Elevated LFTs Essential hypertension Hepatic steatosis Hyperplastic colonic polyp Hypertension Mixed hyperlipidemia Obesity (BMI 30-39.9) Sleep apnea not using CPAP Tobacco use disorder Current Outpatient Medications Medication Sig Dispense Refill terbinafine HCl (LAMISIL) 250 mg tablet Take 1 tablet by mouth once daily for 14 days. 14 tablet 0 doxycycline hyclate (VIBRAMYCIN) 100 mg capsule Take 1 capsule by mouth two times a day for 10 days. 20 capsule 0 semaglutide (OZEMPIC) 0.25 mg or 0.5 mg (2 mg/3 mL) pen Inject 0.25 mg subcutaneously one time a week. 3 mL 0 glimepiride (AMARYL) 4 mg tablet Take 1 tablet by mouth daily with breakfast. 90 tablet 0 naproxen (NAPROSYN) 500 mg tablet Take 1 tablet by mouth two times a day as needed. Take with food. 60 tablet 0 atorvastatin (LIPITOR) 10 mg tablet Take 1 tablet by mouth daily at bedtime. For cholesterol. [address] (CYMBALTA) 20 mg capsule Take 1 capsule by mouth once daily. 90 capsule 1 potassium chloride (K-TAB) 10 mEq tablet Take 1 tablet by mouth daily with breakfast. 90 tablet 1 metFORMIN (GLUCOPHAGE) 1,000 mg tablet Take 1 tablet by mouth two times a day with meals. 180 tablet 1 losartan (COZAAR) 100 mg tablet Take 1 tablet by mouth once daily. 90 tablet 1 amLODIPine (NORVASC) 5 mg tablet Take 1 tablet by mouth once daily. 90 tablet 1 metoprolol succinate ER (TOPROL XL) 100 mg Take 1 tablet by mouth once daily. 90 tablet 1 hydroCHLOROthiazide 50 mg tablet Take 1 tablet by mouth once daily. 90 tablet 1 aspirin, enteric coated (ADULT LOW DOSE ASPIRIN) 81 mg EC tablet Take 1 tablet by mouth once daily. blood sugar diagnostic (BLOOD GLUCOSE TEST) test strip Test blood sugar(s) 1 times daily. Dx: Type 2 DM - Uncontrolled E11.65 Insulin: No 50 Strip 11 Lancets Test blood sugar(s) 1 times daily. Dx: Type 2 DM - Uncontrolled E11.65 Insulin: No 100 Each 11 COMPOUNDED PRESCRIPTION Take by mouth once daily. Centrum Silver multivitamin ciclopirox (LOPROX) 0.77 % cream Apply 1 application to affected area two times a day. 30 g 2 No current facility-administered medications for this visit. Family History Problem Relation Age of Onset Melanoma Mother Fibromyalgia Mother Hypertension Father Coronary Artery Disease Maternal Grandfather CABG x4 Heart Paternal Grandfather [place] No Known Problems Daughter No Known Problems Son Objective There were no vitals taken for this visit. - Cardiovascular: Dorsalis pedis and posterior tibial pulses palpable bilaterally; capillary refill time <5 seconds. - Skin: Warm temperature proximally and distally; no erythema noted bilaterally. - Musculoskeletal: Slight callusing along the medial aspect of bilateral hallux interphalangeal joints. - Palpable heel spur right posterior heel. achilles appears intact - Neurological: Protective sensation intact bilaterally; vibratory sensation intact bilaterally. - Dermatological: - Left Foot: Maceration present in the second and third interdigital spaces; scaling along the dorsal aspect of the second interdigital space. - Right Foot: Maceration present in the second and third interdigital spaces; slight scaling on the third toe. - No signs of infection present bilaterally. Assessment AND Plan 1. Tinea pedis of both feet (B35.3) Tinea pedis with maceration and scaling between the toes of both feet, currently improving with ongoing treatment. - Continue terbinafine as prescribed. - Continue doxycycline as prescribed. - Apply Betadine solution between toes daily for 2-3 days to promote drying. - Use lambswool or gauze between toes to maintain dryness; may use a hair baler to assist with drying. - Change socks twice daily if sweating occurs; apply baby powder to shoes to reduce moisture. - Start Loprox cream to be applied twice daily to scaled areas between toes once moisture resolves. - Advised to call if condition does not improve. 2. Diabetes mellitus type II (HCC) (E11.9) Diabetes mellitus type II diagnosed earlier this year; no current diabetic foot complications noted. - Educated on importance of avoiding barefoot walking, wearing appropriate footwear, and daily foot inspection. - Advised to use a pumice stone to file down calluses on the hallux interphalangeal joints. - callus to b/l hallux reduced with dremmel 3. Discussed posterior heel spur to right heel. recommend powerstep inserts, stretching, icing. if pain fails to improve, could consider therapy or spur resection. Recording using [employer] [place] software for draft documentation of the visit was discussed with the patient/authorized inbound call center representative; all questions welcomed and answered. Patient/authorized inbound call center representative agreed to proceed Grzegorz Nash DPM PROGRESS Observed: 02/26/2025 10:36 AM Status: COMPLETED Source: [facility] HNO ID: [id number] Author: KASSY CASTILLO LPN Service: ? Author Type: Licensed Nurse Type: Progress Notes Filed: 02/26/2025 10:39 Note Text: Per Hetal Plunkett was provided with powerstep original inserts, size 9, and instructed/educated in its application, wear, and care. All questions were answered, and patient was able to demonstrate competence with the necessary skills to utilize the above equipment. MARVA SinghOV Observed: 02/26/2025 10:15 AM Status: COMPLETED Source: [facility] Office Visit (PODIWS) HETAL HUSAIN ([id number]) 1970 M Date Time Provider Department 02/26/25 10:15 AM GRZEGORZ NASH PODIWS During your visit today, we recorded the following information about you: Hayley Olivares MA 02/26/2025 10:39 AM Signed Patient presents with: Left Foot - New Right Foot - New: Tinea Pedis bilateral feet and cellulits AMB ROOMING INTAKE FLOWSHEET DATA Patient has some scabs between his 2nd and 3rd toes on both feet. His PCP - Dr Jack gave him Lamisil and Vibromycin. States his toes are much better. His sores are scabbed over. No open drainage. Blood sugar today was 125. Grzegorz Nash 02/26/2025 10:32 AM Addendum We discussed your athlete's foot: - Continue taking the Lamisil (terbinafine) as prescribed. This medication will help treat the fungal infection. Let me know if you experience any side effects. - Continue taking the doxycycline as prescribed. This antibiotic will help address any potential infection associated with the athlete's foot. - Apply Betadine solution between your toes daily for the next 2-3 days to help dry out the moist areas. Ensure the areas are completely dry before applying anything else. - Use lambswool or gauze between your toes to help keep the area dry. You can also use baby powder in your shoes to reduce perspiration and change your socks twice daily if needed. - Once the moisture has resolved, apply Loprox cream (prescription sent to [facility]) twice daily to the scaly areas between your toes. Do not start using the cream until the moisture has completely dried up. - If the athlete's foot does not improve despite these measures, please call our office for further evaluation. We discussed your diabetes and foot care: - Your feet appear healthy from a diabetic perspective, with no signs of infection or concerning issues. - Avoid walking barefoot and wear well-fitting shoes to protect your feet. - Inspect your feet daily for any changes, such as redness, sores, or swelling. - You have some calluses on your big toes. You can use a pumice stone or emery board to gently file them down periodically. If you prefer, I can assist with this during a future visit. Follow-Up: - If your symptoms worsen or do not improve after following the care plan, please contact our office. - Let us know if you experience any new or concerning symptoms. Powerstep Original Full length. Can purchase at [employer] and boots,shoes and more here in [place], [employer] in [place] or [place]. Also can find in [employer] in [facility]. Powersteps can also be purchased online, starting around $45.00 If you have a metatarsal or dancer pad for your feet apply the pad directly to the insole so you can interchange between your shoes. Find a shoe with a removable insole and take this out and replace with your powerstep insole. Always bring powersteps with you when shopping for shoes so that you can make sure that everything fits well together Kassy Castillo LPN 02/26/2025 10:[address] Nash Hetal was provided with powerstep original inserts, size 9, and instructed/educated in its application, wear, and care. All questions were answered, and patient was able to demonstrate competence with the necessary skills to utilize the above equipment. MARVA Singh Matthew 02/26/2025 10:39 AM Signed Subjective Hetal Husain is a 54-year-old male with a history of diabetes mellitus, presenting for evaluation of tinea pedis. Hetal reports a 2-week history of tinea pedis, which has not responded to his usual rjjn-nzt-cepvjcu topical treatment. He typically applies an antifungal cream between his toes, which usually resolves the condition within a few days. However, this episode has progressively worsened, prompting him to seek medical attention on 02/23. During that visit, he was prescribed oral terbinafine and doxycycline. He inquired about continuing the use of topical cream but was advised to allow the area to dry. Since initiating the prescribed medications, he notes improvement in the condition, with the affected areas appearing atmospheric drier tender and showing signs of healing. He denies significant gastrointestinal upset from the medications. Hetal mentions that he experiences tinea pedis frequently, but not to this severity. He describes his usual symptoms as mild desquamation, which he manages by manually removing the affected skin. He denies any known allergies to Betadine. Gastrointestinal: (+) upset stomach Skin: (+) foot pruritus PAST MEDICAL HISTORY Diagnosis Date Achilles tendinitis of left lower extremity Achilles tendinitis, left leg Current moderate episode of major depressive disorder without prior episode (HCC) Diabetes mellitus type II (HCC) Elevated LFTs Essential hypertension Hepatic steatosis Hyperplastic colonic polyp Hypertension Mixed hyperlipidemia Obesity (BMI 30-39.9) Sleep apnea not using CPAP Tobacco use disorder Current Outpatient Medications Medication Sig Dispense Refill terbinafine HCl (LAMISIL) 250 mg tablet Take 1 tablet by mouth once daily for 14 days. 14 tablet 0 doxycycline hyclate (VIBRAMYCIN) 100 mg capsule Take 1 capsule by mouth two times a day for 10 days. 20 capsule 0 semaglutide (OZEMPIC) 0.25 mg or 0.5 mg (2 mg/3 mL) pen Inject 0.25 mg subcutaneously one time a week. 3 mL 0 glimepiride (AMARYL) 4 mg tablet Take 1 tablet by mouth daily with breakfast. 90 tablet 0 naproxen (NAPROSYN) 500 mg tablet Take 1 tablet by mouth two times a day as needed. Take with food. 60 tablet 0 atorvastatin (LIPITOR) 10 mg tablet Take 1 tablet by mouth daily at bedtime. For cholesterol. [address] (CYMBALTA) 20 mg capsule Take 1 capsule by mouth once daily. 90 capsule 1 potassium chloride (K-TAB) 10 mEq tablet Take 1 tablet by mouth daily with breakfast. 90 tablet 1 metFORMIN (GLUCOPHAGE) 1,000 mg tablet Take 1 tablet by mouth two times a day with meals. 180 tablet 1 losartan (COZAAR) 100 mg tablet Take 1 tablet by mouth once daily. 90 tablet 1 amLODIPine (NORVASC) 5 mg tablet Take 1 tablet by mouth once daily. 90 tablet 1 metoprolol succinate ER (TOPROL XL) 100 mg Take 1 tablet by mouth once daily. 90 tablet 1 hydroCHLOROthiazide 50 mg tablet Take 1 tablet by mouth once daily. 90 tablet 1 aspirin, enteric coated (ADULT LOW DOSE ASPIRIN) 81 mg EC tablet Take 1 tablet by mouth once daily. blood sugar diagnostic (BLOOD GLUCOSE TEST) test strip Test blood sugar(s) 1 times daily. Dx: Type 2 DM - Uncontrolled E11.65 Insulin: No 50 Strip 11 Lancets Test blood sugar(s) 1 times daily. Dx: Type 2 DM - Uncontrolled E11.65 Insulin: No 100 Each 11 COMPOUNDED PRESCRIPTION Take by mouth once daily. Centrum Silver multivitamin ciclopirox (LOPROX) 0.77 % cream Apply 1 application to affected area two times a day. 30 g 2 No current facility-administered medications for this visit. Family History Problem Relation Age of Onset Melanoma Mother Fibromyalgia Mother Hypertension Father Coronary Artery Disease Maternal Grandfather CABG x4 Heart Paternal Grandfather [place] No Known Problems Daughter No Known Problems Son Objective There were no vitals taken for this visit. - Cardiovascular: Dorsalis pedis and posterior tibial pulses palpable bilaterally; capillary refill time <5 seconds. - Skin: Warm temperature proximally and distally; no erythema noted bilaterally. - Musculoskeletal: Slight callusing along the medial aspect of bilateral hallux interphalangeal joints. - Palpable heel spur right posterior heel. achilles appears intact - Neurological: Protective sensation intact bilaterally; vibratory sensation intact bilaterally. - Dermatological: - Left Foot: Maceration present in the second and third interdigital spaces; scaling along the dorsal aspect of the second interdigital space. - Right Foot: Maceration present in the second and third interdigital spaces; slight scaling on the third toe. - No signs of infection present bilaterally. Assessment AND Plan 1. Tinea pedis of both feet (B35.3) Tinea pedis with maceration and scaling between the toes of both feet, currently improving with ongoing treatment. - Continue terbinafine as prescribed. - Continue doxycycline as prescribed. - Apply Betadine solution between toes daily for 2-3 days to promote drying. - Use lambswool or gauze between toes to maintain dryness; may use a hair baler to assist with drying. - Change socks twice daily if sweating occurs; apply baby powder to shoes to reduce moisture. - Start Loprox cream to be applied twice daily to scaled areas between toes once moisture resolves. - Advised to call if condition does not improve. 2. Diabetes mellitus type II (HCC) (E11.9) Diabetes mellitus type II diagnosed earlier this year; no current diabetic foot complications noted. - Educated on importance of avoiding barefoot walking, wearing appropriate footwear, and daily foot inspection. - Advised to use a pumice stone to file down calluses on the hallux interphalangeal joints. - callus to b/l hallux reduced with dremmel 3. Discussed posterior heel spur to right heel. recommend powerstep inserts, stretching, icing. if pain fails to improve, could consider therapy or spur resection. Recording using [employer] [place] [employer] software for draft documentation of the visit was discussed with the patient/authorized inbound call center representative; all questions welcomed and answered. Patient/authorized inbound call center representative agreed to proceed Grzegorz Nash DPM Allergies As of Date: 02/26/2025 Noted Allergy Reaction VIAGRA (SILDENAFIL) 02/20/2025 14 - Other: See Comments Comments: Headache, flushed LISINOPRIL (BULK) 07/14/2017 3 - Cough WELLBUTRIN (BUPROPION) 09/06/2023 14 - Other: See Comments Comments: Anxiety ZOLOFT (SERTRALINE) 08/11/2020 14 - Other: See Comments Comments: Sexual side effects. Date Reviewed: 02/26/2025 Reviewed by: Hayley Olivares MA - Fully Assessed Reason for Visit: New [[id number]] New [[id number]] Cmt: Tinea Pedis bilateral feet and cellulits Primary Visit Diagnosis:Tinea pedis of both feet [B35.3] Other Visit Diagnosis:Diabetes mellitus type II (HCC) [E11.9] Order(s):ciclopirox (LOPROX) 0.77 % creamApply 1 application to affected area two times a day.Disp: 30 gRfl: 2 Prescriptions as of 02/26/2025 - ciclopirox (LOPROX) 0.77 % cream Apply 1 application to affected area two times a day. - terbinafine HCl (LAMISIL) 250 mg tablet Take 1 tablet by mouth once daily for 14 days. - doxycycline hyclate (VIBRAMYCIN) 100 mg capsule Take 1 capsule by mouth two times a day for 10 days. - semaglutide (OZEMPIC) 0.25 mg or 0.5 mg (2 mg/3 mL) pen Inject 0.25 mg subcutaneously one time a week. - glimepiride (AMARYL) 4 mg tablet Take 1 tablet by mouth daily with breakfast. - naproxen (NAPROSYN) 500 mg tablet Take 1 tablet by mouth two times a day as needed. Take with food. - atorvastatin (LIPITOR) 10 mg tablet Take 1 tablet by mouth daily at bedtime. For cholesterol. - DULoxetine DR (CYMBALTA) 20 mg capsule Take 1 capsule by mouth once daily. - potassium chloride (K-TAB) 10 mEq tablet Take 1 tablet by mouth daily with breakfast. - metFORMIN (GLUCOPHAGE) 1,000 mg tablet Take 1 tablet by mouth two times a day with meals. - losartan (COZAAR) 100 mg tablet Take 1 tablet by mouth once daily. - amLODIPine (NORVASC) 5 mg tablet Take 1 tablet by mouth once daily. - metoprolol succinate ER (TOPROL XL) 100 mg Take 1 tablet by mouth once daily. - hydroCHLOROthiazide 50 mg tablet Take 1 tablet by mouth once daily. - aspirin, enteric coated (ADULT LOW DOSE ASPIRIN) 81 mg EC tablet Take 1 tablet by mouth once daily. - blood sugar diagnostic (BLOOD GLUCOSE TEST) test strip Test blood sugar(s) 1 times daily. Dx: Type 2 DM - Uncontrolled E11.65 Insulin: No - Lancets Test blood sugar(s) 1 times daily. Dx: Type 2 DM - Uncontrolled E11.65 Insulin: No - COMPOUNDED PRESCRIPTION Take by mouth once daily. 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 This medication will help treat the fungal infection. Let me know if you experience any side effects. - Continue taking the doxycycline as prescribed. This antibiotic will help address any potential infection associated with the athlete's foot. - Apply Betadine solution between your toes daily for the next 2-3 days to help dry out the moist areas. Ensure the areas are completely dry before applying anything else. - Use lambswool or gauze between your toes to help keep the area dry. You can also use baby powder in your shoes to reduce perspiration and change your socks twice daily if needed. - Once the moisture has resolved, apply Loprox cream (prescription sent to [facility]) twice daily to the scaly areas between your toes. Do not start using the cream until the moisture has completely dried up. - If the athlete's foot does not improve despite these measures, please call our office for further evaluation. We discussed your diabetes and foot care: - Your feet appear healthy from a diabetic perspective, with no signs of infection or concerning issues. - Avoid walking barefoot and wear well-fitting shoes to protect your feet. - Inspect your feet daily for any changes, such as redness, sores, or swelling. - You have some calluses on your big toes. You can use a pumice stone or emery board to gently file them down periodically. If you prefer, I can assist with this during a future visit. Follow-Up: - If your symptoms worsen or do not improve after following the care plan, please contact our office. - Let us know if you experience any new or concerning symptoms. Powerstep Original Full length. Can purchase at [facility] [employer] and boots,shoes and more here in [place], [employer] in [place] or [place]. Also can find in [employer] in [facility]. [employer] can also be purchased online, starting around $45.00 If you have a metatarsal or dancer pad for your feet apply the pad directly to the insole so you can interchange between your shoes. Find a shoe with a removable insole and take this out and replace with your powerstep insole. Always bring powersteps with you when shopping for shoes so that you can make sure that everything fits well together Prescriptions ordered this encounter Disp Refills Start End CICLOPIROX 0.77 % TOPICAL CREAM 30 g 2 02/26/2025 Route: TOP Sig: Apply 1 application to affected area two times a day. Encounter Status:Closed by GRZEGORZ NASH DPM on 02/26/25 PROGRESS Observed: 02/26/2025 10:09 AM Status: COMPLETED Source: [facility] HN ID: [id number] Author: HAYLEY OLIVARES MA Service: ? Author Type: [employer] Type: Progress Notes Filed: 02/26/2025 10:39 Note Text: Patient presents with: Left Foot - New Right Foot - New: Tinea Pedis bilateral feet and cellulits AMB ROOMING INTAKE FLOWSHEET DATA Patient has some scabs between his 2nd and 3rd toes on both feet. His PCP - Dr Jack gave him Lamisil and Vibromycin. States his toes are much better. His sores are scabbed over. No open drainage. Blood sugar today was 125. CNOV Observed: 02/23/2025 11:40 AM Status: COMPLETED Source: [facility] Office Visit (FAMPWS) HETAL HUSAIN ([id number]) 1970 M Date Time Provider Department 02/23/25 11:40 AM IKE JACK During your visit today, we recorded the following information about you: Temperature Pulse Blood pressure Weight 97.8 degrees 97/minute 128/70 120.2 kg Height 1.778 m Ike Jack MD 02/23/2025 11:59 AM Signed Chief Complaint Patient presents with: Rash: Itchy rash on B/L feet between toes Recording using [employer] [place] software for draft documentation of the visit was discussed with the patient/authorized inbound call center representative; all questions welcomed and answered. Patient/authorized inbound call center representative agreed to proceed HPI Hetal Husain is a 54 year old male who presents here today for Above Complaints. Foot Infection: - Onset over a week ago. - Initially presented with itching and mild erythema between the toes. - Progressed to involve the top of the foot with swelling and pain. - Noted maceration between toes, with skin appearing crinkly and like they'd been in water. - Reports serosanguinous drainage, described as pinkish fluid saturating socks. - Denies fever or purulent drainage. - Attempted self-treatment with dkti-ewu-cfoqeuq antifungal cream without improvement. - Wears [employer] shoes, which contributed to moisture retention. - History of recurrent tinea pedis, but states this episode is more severe than previous occurrences. Diabetes Mellitus: - Recently prescribed Ozempic; plans to start injections tomorrow. Past medical history, appointments, medications, allergies reviewed. Previous Medical History PAST MEDICAL HISTORY Diagnosis Date Achilles tendinitis of left lower extremity Achilles tendinitis, left leg Current moderate episode of major depressive disorder without prior episode (HCC) Diabetes mellitus type II (HCC) Elevated LFTs Essential hypertension Hepatic steatosis Hyperplastic colonic polyp Hypertension Mixed hyperlipidemia Obesity (BMI 30-39.9) Sleep apnea not using CPAP Tobacco use disorder Previous Surgical History PAST SURGICAL HISTORY Procedure Laterality Date ACHILLES TENDON SURGERY HX Left 01/27/2024 CHOLECYSTECTOMY Cholecystectomy COLONOSCOPY FLX DX W/COLLJ SPEC WHEN PFRMD 05/06/2020 Colonoscopy-repeat in 10 years DANTE PAST SURGICAL HISTORY OF 09/2020 sinoplasty Family History FAMILY HISTORY Problem Relation Age of Onset Melanoma Mother Fibromyalgia Mother Hypertension Father Coronary Artery Disease Maternal Grandfather CABG x4 Heart Paternal Grandfather [place] No Known Problems Daughter No Known Problems Son Patient Allergies ALLERGIES Allergen Reactions Viagra [Sildenafil] Other: See Comments Headache, flushed Lisinopril (Bulk) Cough Wellbutrin [Bupropi* Other: See Comments Anxiety Zoloft [Sertraline] Other: See Comments Sexual side effects. Current Medications Current Outpatient Medications on File Prior to Visit Medication Sig semaglutide (OZEMPIC) 0.25 mg or 0.5 mg (2 mg/3 mL) pen Inject 0.25 mg subcutaneously one time a week. glimepiride (AMARYL) 4 mg tablet Take 1 tablet by mouth daily with breakfast. naproxen (NAPROSYN) 500 mg tablet Take 1 tablet by mouth two times a day as needed. Take with food. atorvastatin (LIPITOR) 10 mg tablet Take 1 tablet by mouth daily at bedtime. For cholesterol. DULoxetine DR (CYMBALTA) 20 mg capsule Take 1 capsule by mouth once daily. potassium chloride (K-TAB) 10 mEq tablet Take 1 tablet by mouth daily with breakfast. metFORMIN (GLUCOPHAGE) 1,000 mg tablet Take 1 tablet by mouth two times a day with meals. losartan (COZAAR) 100 mg tablet Take 1 tablet by mouth once daily. amLODIPine (NORVASC) 5 mg tablet Take 1 tablet by mouth once daily. metoprolol succinate ER (TOPROL XL) 100 mg Take 1 tablet by mouth once daily. hydroCHLOROthiazide 50 mg tablet Take 1 tablet by mouth once daily. aspirin, enteric coated (ADULT LOW DOSE ASPIRIN) 81 mg EC tablet Take 1 tablet by mouth once daily. blood sugar diagnostic (BLOOD GLUCOSE TEST) test strip Test blood sugar(s) 1 times daily. Dx: Type 2 DM - Uncontrolled E11.65 Insulin: No Lancets Test blood sugar(s) 1 times daily. Dx: Type 2 DM - Uncontrolled E11.65 Insulin: No COMPOUNDED PRESCRIPTION Take by mouth once daily. Centrum Silver multivitamin No current facility-administered medications on file prior to visit. Social History SOCIAL HISTORY[1] Review of Symptoms REVIEW OF SYSTEMS See HPI EXAM: BP 128/70 Pulse 97 Temp 36.6 ?C (97.8 ?F) Ht 177.8 cm (5' 10) Wt 120.2 kg (265 lb) SpO2 95% BMI 38.02 kg/m? General Appearance: Well appearing, alert, in no acute distress, well-hydrated, well nourished.. Skin: skin between left 2nd and 3rd, 3rd and 4th toes appears macerated with areas of epidermis removed and inflammation underneath. Mild scabbing noted with minimal erythema. No warmth to touch or abscess. TTP over foot just proximal to 2nd/3rd toes. Right foot has similar appearance between 2nd and 3rd toes, but much milder. Consistent with tinea pedis with possible early cellulitis. See images in chart. Health Maintenance List Anxiety Screening Never done DTaP,Tdap,Td Vaccine(1 - Tdap) due on 02/20/2026 Influenza Vaccine(1) due on 03/11/2025 Diabetic Foot Exam due on 08/15/2025 HbA1C due on 08/23/2025 Dilated Retinal Exam due on 09/26/2025 Urine Albumin:Creatinine Ratio due on 11/16/2025 LDL Cholesterol due on 11/16/2025 Annual PCP Team Chronic Disease Visit due on 02/20/2026 Prostate Cancer Screening Discussion due on 02/20/2030 Colorectal Cancer Screening due on 05/06/2030 Hepatitis C Screening Completed Shingrix Vaccine Completed Pneumococcal Vaccine: 50+ Completed Hepatitis B Vaccine Discontinued HIV Screening Discontinued 1. Tinea pedis of both feet (B35.3) 2. Cellulitis of skin (L03.90) - Chronic tinea pedis with acute worsening over the past week; swelling and pain on dorsal aspect of foot, maceration and sloughing between toes, and serosanguinous drainage noted. - No fever or purulent drainage reported; no evidence of cellulitis on exam, but high risk for secondary bacterial infection given diabetes and extent of maceration. - Start terbinafine 250 mg PO daily for 14 days. - Start doxycycline PO BID to prevent secondary bacterial infection, including MRSA. - Advised to keep feet clean and dry, avoid digging at affected areas, and to use hydrocortisone cream for itching if needed. - Educated on signs of worsening infection (yellow-green drainage, fever, spreading erythema, increased swelling or pain) and instructed to seek immediate care if these occur. - Refer to podiatry for evaluation next week; if unable to be seen by podiatry, follow-up in 3-5 days. Ike Jack MD [1] Social History Tobacco Use Smoking status: Every Day Current packs/day: 0.50 Average packs/day: 0.5 packs/day for 25.0 years (12.5 ttl pk-yrs) Types: Cigarettes Passive exposure: Never Smokeless tobacco: Former Types: Snuff Quit date: 07/14/2015 Vaping Use Vaping status: Former Substances: Flavoring Devices: Pre-filled or refillable cartridge Substance Use Topics Alcohol use: Yes Alcohol/week: 14.0 - 27.0 standard drinks of alcohol Types: 14 - 27 Standard drinks or equivalent per week Comment: 8 drinks most Tuesday Drug use: Not Currently Types: Marijuana Ike Jack MD 02/23/2025 11:54 AM Signed - Start terbinafine (Lamisil) 250 mg by mouth once daily for 14 days to clear the fungal infection. - Take doxycycline by mouth twice daily to prevent a bacterial skin infection, including MRSA. - Keep the foot clean and completely dry: gently wash and pat dry after bathing, avoid scrubbing or picking at the skin. - If itching persists, you may apply utis-ezr-qeflqji hydrocortisone cream or antifungal cream as directed on the package. - Watch for yellow-green discharge, fever, spreading redness or swelling, or increased pain--seek medical attention immediately if any of these occur. - Begin your Ozempic injection tomorrow: inject subcutaneously once weekly, rotating sites (abdomen recommended). Refer to the package insert for detailed instructions. - Schedule and attend your podiatry appointment with Dr. Orozco next week to evaluate your foot. If you cannot get an appointment within 3-5 days, contact our clinic before the end of the week. Allergies As of Date: 02/23/2025 Noted Allergy Reaction VIAGRA (SILDENAFIL) 02/20/2025 14 - Other: See Comments Comments: Headache, flushed LISINOPRIL (BULK) 07/14/2017 3 - Cough WELLBUTRIN (BUPROPION) 09/06/2023 14 - Other: See Comments Comments: Anxiety ZOLOFT (SERTRALINE) 08/11/2020 14 - Other: See Comments Comments: Sexual side effects. Date Reviewed: 02/23/2025 Reviewed by: Tamiko Fairbanks MA - Fully Assessed Reason for Visit: Rash [1087] Cmt: Itchy rash on B/L feet between toes Primary Visit Diagnosis:Tinea pedis of both feet [B35.3] Other Visit Diagnosis:Cellulitis of skin [L03.90] Order(s):terbinafine HCl (LAMISIL) 250 mg tabletTake 1 tablet by mouth once daily for 14 days.Disp: 14 tabletRfl: 0 doxycycline hyclate (VIBRAMYCIN) 100 mg capsuleTake 1 capsule by mouth two times a day for 10 days.Disp: 20 capsuleRfl: 0 CONSULT TO PODIATRY [9032] Order #: [id number]: 1 FUTURE Prescriptions as of 02/25/2025 - terbinafine HCl (LAMISIL) 250 mg tablet Take 1 tablet by mouth once daily for 14 days. - doxycycline hyclate (VIBRAMYCIN) 100 mg capsule Take 1 capsule by mouth two times a day for 10 days. - semaglutide (OZEMPIC) 0.25 mg or 0.5 mg (2 mg/3 mL) pen Inject 0.25 mg subcutaneously one time a week. - glimepiride (AMARYL) 4 mg tablet Take 1 tablet by mouth daily with breakfast. - naproxen (NAPROSYN) 500 mg tablet Take 1 tablet by mouth two times a day as needed. Take with food. - atorvastatin (LIPITOR) 10 mg tablet Take 1 tablet by mouth daily at bedtime. For cholesterol. - DULoxetine DR (CYMBALTA) 20 mg capsule Take 1 capsule by mouth once daily. - potassium chloride (K-TAB) 10 mEq tablet Take 1 tablet by mouth daily with breakfast. - metFORMIN (GLUCOPHAGE) 1,000 mg tablet Take 1 tablet by mouth two times a day with meals. - losartan (COZAAR) 100 mg tablet Take 1 tablet by mouth once daily. - amLODIPine (NORVASC) 5 mg tablet Take 1 tablet by mouth once daily. - metoprolol succinate ER (TOPROL XL) 100 mg Take 1 tablet by mouth once daily. - hydroCHLOROthiazide 50 mg tablet Take 1 tablet by mouth once daily. - aspirin, enteric coated (ADULT LOW DOSE ASPIRIN) 81 mg EC tablet Take 1 tablet by mouth once daily. - blood sugar diagnostic (BLOOD GLUCOSE TEST) test strip Test blood sugar(s) 1 times daily. Dx: Type 2 DM - Uncontrolled E11.65 Insulin: No - Lancets Test blood sugar(s) 1 times daily. Dx: Type 2 DM - Uncontrolled E11.65 Insulin: No - COMPOUNDED PRESCRIPTION Take by mouth once daily. 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 - Take doxycycline by mouth twice daily to prevent a bacterial skin infection, including MRSA. - Keep the foot clean and completely dry: gently wash and pat dry after bathing, avoid scrubbing or picking at the skin. - If itching persists, you may apply [id number]-vxmrmob hydrocortisone cream or antifungal cream as directed on the package. - Watch for yellow-green discharge, fever, spreading redness or swelling, or increased pain--seek medical attention immediately if any of these occur. - Begin your Ozempic injection tomorrow: inject subcutaneously once weekly, rotating sites (abdomen recommended). Refer to the package insert for detailed instructions. - Schedule and attend your podiatry appointment with Dr. Orozco next week to evaluate your foot. If you cannot get an appointment within 3-5 days, contact our clinic before the end of the week. Prescriptions ordered this encounter Disp Refills Start End TERBINAFINE HCL 250 MG TABLET 14 t* 0 02/23/2025 03/09/2025 Route: PO Sig: Take 1 tablet by mouth once daily for 14 days. DOXYCYCLINE HYCLATE 100 MG CAPSULE 20 c* 0 02/23/2025 03/05/2025 Route: PO Sig: Take 1 capsule by mouth two times a day for 10 days. Disposition: Return for 3-5 days if unable to see podiatry. Follow-up and Disposition History for Encounter Date Provider Department Center 02/23/2025 [id number]-EVDVHUALUCI JACK [facility] Encounter Status:Closed by IKE JACK on 02/23/25 PROGRESS Observed: 02/23/2025 11:39 AM Status: COMPLETED Source: [facility] HNO ID: [id number] Author: IKE JACK MD Service: ? Author Type: Physician Type: Progress Notes Filed: 02/23/2025 11:59 Note Text: Chief Complaint Patient presents with: Rash: Itchy rash on B/L feet between toes Recording using ambient AI software for draft documentation of the visit was discussed with the patient/authorized inbound call center representative; all questions welcomed and answered. Patient/authorized inbound call center representative agreed to proceed HPI Hetal Husain is a 54 year old male who presents here today for Above Complaints. Foot Infection: - Onset over a week ago. - Initially presented with itching and mild erythema between the toes. - Progressed to involve the top of the foot with swelling and pain. - Noted maceration between toes, with skin appearing crinkly and like they'd been in water. - Reports serosanguinous drainage, described as pinkish fluid saturating socks. - Denies fever or purulent drainage. - Attempted self-treatment with kvgd-mow-ekmggol antifungal cream without improvement. - Wears [employer] shoes, which contributed to moisture retention. - History of recurrent tinea pedis, but states this episode is more severe than previous occurrences. Diabetes Mellitus: - Recently prescribed Ozempic; plans to start injections tomorrow. Past medical history, appointments, medications, allergies reviewed. Previous Medical History PAST MEDICAL HISTORY Diagnosis Date Achilles tendinitis of left lower extremity Achilles tendinitis, left leg Current moderate episode of major depressive disorder without prior episode (HCC) Diabetes mellitus type II (HCC) Elevated LFTs Essential hypertension Hepatic steatosis Hyperplastic colonic polyp Hypertension Mixed hyperlipidemia Obesity (BMI 30-39.9) Sleep apnea not using CPAP Tobacco use disorder Previous Surgical History PAST SURGICAL HISTORY Procedure Laterality Date ACHILLES TENDON SURGERY HX Left 01/27/2024 CHOLECYSTECTOMY Cholecystectomy COLONOSCOPY FLX DX W/COLLJ SPEC WHEN PFRMD 05/06/2020 Colonoscopy-repeat in 10 years DANTE PAST SURGICAL HISTORY OF 09/2020 sinoplasty Family History FAMILY HISTORY Problem Relation Age of Onset Melanoma Mother Fibromyalgia Mother Hypertension Father Coronary Artery Disease Maternal Grandfather CABG x4 Heart Paternal Grandfather [place] No Known Problems Daughter No Known Problems Son Patient Allergies ALLERGIES Allergen Reactions Viagra [Sildenafil] Other: See Comments Headache, flushed Lisinopril (Bulk) Cough Wellbutrin [Bupropi* Other: See Comments Anxiety Zoloft [Sertraline] Other: See Comments Sexual side effects. Current Medications Current Outpatient Medications on File Prior to Visit Medication Sig semaglutide (OZEMPIC) 0.25 mg or 0.5 mg (2 mg/3 mL) pen Inject 0.25 mg subcutaneously one time a week. glimepiride (AMARYL) 4 mg tablet Take 1 tablet by mouth daily with breakfast. naproxen (NAPROSYN) 500 mg tablet Take 1 tablet by mouth two times a day as needed. Take with food. atorvastatin (LIPITOR) 10 mg tablet Take 1 tablet by mouth daily at bedtime. For cholesterol. DULoxetine DR (CYMBALTA) 20 mg capsule Take 1 capsule by mouth once daily. potassium chloride (K-TAB) 10 mEq tablet Take 1 tablet by mouth daily with breakfast. metFORMIN (GLUCOPHAGE) 1,000 mg tablet Take 1 tablet by mouth two times a day with meals. losartan (COZAAR) 100 mg tablet Take 1 tablet by mouth once daily. amLODIPine (NORVASC) 5 mg tablet Take 1 tablet by mouth once daily. metoprolol succinate ER (TOPROL XL) 100 mg Take 1 tablet by mouth once daily. hydroCHLOROthiazide 50 mg tablet Take 1 tablet by mouth once daily. aspirin, enteric coated (ADULT LOW DOSE ASPIRIN) 81 mg EC tablet Take 1 tablet by mouth once daily. blood sugar diagnostic (BLOOD GLUCOSE TEST) test strip Test blood sugar(s) 1 times daily. Dx: Type 2 DM - Uncontrolled E11.65 Insulin: No Lancets Test blood sugar(s) 1 times daily. Dx: Type 2 DM - Uncontrolled E11.65 Insulin: No COMPOUNDED PRESCRIPTION Take by mouth once daily. Centrum Silver multivitamin No current facility-administered medications on file prior to visit. Social History SOCIAL HISTORY[1] Review of Symptoms REVIEW OF SYSTEMS See HPI EXAM: BP 128/70 Pulse 97 Temp 36.6 ?C (97.8 ?F) Ht 177.8 cm (5' 10) Wt 120.2 kg (265 lb) SpO2 95% BMI 38.02 kg/m? General Appearance: Well appearing, alert, in no acute distress, well-hydrated, well nourished.. Skin: skin between left 2nd and 3rd, 3rd and 4th toes appears macerated with areas of epidermis removed and inflammation underneath. Mild scabbing noted with minimal erythema. No warmth to touch or abscess. TTP over foot just proximal to 2nd/3rd toes. Right foot has similar appearance between 2nd and 3rd toes, but much milder. Consistent with tinea pedis with possible early cellulitis. See images in chart. Health Maintenance List Anxiety Screening Never done DTaP,Tdap,Td Vaccine(1 - Tdap) due on 02/20/2026 Influenza Vaccine(1) due on 03/11/2025 Diabetic Foot Exam due on 08/15/2025 HbA1C due on 08/23/2025 Dilated Retinal Exam due on 09/26/2025 Urine Albumin:Creatinine Ratio due on 11/16/2025 LDL Cholesterol due on 11/16/2025 Annual PCP Team Chronic Disease Visit due on 02/20/2026 Prostate Cancer Screening Discussion due on 02/20/2030 Colorectal Cancer Screening due on 05/06/2030 Hepatitis C Screening Completed Shingrix Vaccine Completed Pneumococcal Vaccine: 50+ Completed Hepatitis B Vaccine Discontinued HIV Screening Discontinued 1. Tinea pedis of both feet (B35.3) 2. Cellulitis of skin (L03.90) - Chronic tinea pedis with acute worsening over the past week; swelling and pain on dorsal aspect of foot, maceration and sloughing between toes, and serosanguinous drainage noted. - No fever or purulent drainage reported; no evidence of cellulitis on exam, but high risk for secondary bacterial infection given diabetes and extent of maceration. - Start terbinafine 250 mg PO daily for 14 days. - Start doxycycline PO BID to prevent secondary bacterial infection, including MRSA. - Advised to keep feet clean and dry, avoid digging at affected areas, and to use hydrocortisone cream for itching if needed. - Educated on signs of worsening infection (yellow-green drainage, fever, spreading erythema, increased swelling or pain) and instructed to seek immediate care if these occur. - Refer to podiatry for evaluation next week; if unable to be seen by podiatry, follow-up in 3-5 days. Ike Jack MD [1] Social History Tobacco Use Smoking status: Every Day Current packs/day: 0.50 Average packs/day: 0.5 packs/day for 25.0 years (12.5 ttl pk-yrs) Types: Cigarettes Passive exposure: Never Smokeless tobacco: Former Types: Snuff Quit date: 07/14/2015 Vaping Use Vaping status: Former Substances: Flavoring Devices: Pre-filled or refillable cartridge Substance Use Topics Alcohol use: Yes Alcohol/week: 14.0 - 27.0 standard drinks of alcohol Types: 14 - 27 Standard drinks or equivalent per week Comment: 8 drinks most Tuesday Drug use: Not Currently Types: Marijuana PSA/PROSTATE SPECIFIC ANTIGEN SCREENING Collected: 02/20/2025 2:57 PM Status: F Source: [facility] Comment: Specimen Type : BLOOD SPECIMEN Ordering Facility: [facility] Address: [address] [place] [address] TYPE CODE TESTS RESULT OUT OF RANGE REFERENCE UNITS LAB 2857-1([facility]) PSA SerPl-mCnc 0.98 <2.60 ng/mL Result Comment: Total PSA te st methodology used is the Electrochemiluminescence Immunoassay by [employer]. Total PSA values by differing methodologies cannot be interchanged. Performed By: #### PSAS1 ### # [facility] CLIA [id number] [address] [place] [address] [place] COMP METAB 2000 PNL SERPL Collected: 2:57 PM Status: F Source: [facility] Comment: Specimen Type : BLOOD SPECIMEN Ordering Facility: [facility] Address: [address] [place] [address] TYPE CODE TESTS RESULT OUT OF RANGE REFERENCE UNITS LAB 2885-2(LOINC) Prot SerPl-mCnc 7.0 6.3-8.0 g/dL LAB 1751-7(LOINC) Albumin SerPl-mCnc 4.7 3.9-4.9 g/dL LAB 30560-5(LOINC) Calcium SerPl-mCnc 10.0 8.5-10.2 mg/dL LAB 1975-2(LOINC) Bilirub SerPl-mCnc 0.8 0.2-1.3 mg/dL LAB 6768-6(LOINC) ALP SerPl-cCnc 45 38-113 U/L LAB 1920-8(LOINC) AST SerPl-cCnc 31 14-40 U/L LAB 1742-6(LOINC) ALT SerPl-cCnc 43 10-54 U/L LAB 2345-7(LOINC) Glucose SerPl-mCnc 56 Low 74-99 mg/dL Result Comment: The [place] Diabetes Association (ADA) provides guidance for cutoff values for fasting glucose and random glucose. The ADA defines fasting as no caloric intake for at least 8 hours. Fasting plasma glucose results between 100 to 125 mg/dL indicate increased risk for diabetes (prediabetes). Fasting plasma glucose results greater than or equal to 126 mg/dL meet the criteria for diagnosis of diabetes. In the absence of unequivocal hyperglycemia, results should be confirmed by repeat testing. In a patient with classic symptoms of hyperglycemia or hyperglycemic crisis, random plasma glucose results greater than or equal to 200 mg/dL meet the criteria for diagnosis of diabetes. Reference: Standards of Medical Care in Diabetes 2016, [place] [employer] Association. Diabetes Care. 2016.39(Suppl 1). LAB 3094-0(LOINC) BUN SerPl-mCnc 19 9-24 mg/dL LAB 2160-0(LOINC) Creat SerPl-mCnc 0.68 Low 0.73-1.22 mg/dL LAB 2951-2(LOINC) Sodium SerPl-sCnc 141 136-144 mmol/L LAB 2823-3(LOINC) Potassium SerPl-sCnc 4.1 3.7-5.1 mmol/L LAB 2075-0(LOINC) Chloride SerPl-sCnc 102 98-107 mmol/L LAB 2028-9(LOINC) CO2 SerPl-sCnc 27 22-30 mmol/L LAB 52890-4(LOINC) Anion Gap SerPl-sCnc 12 8-15 mmol/L LAB 15004-3(LOINC) eGFRcr SerPlBld CKD-EPI 2020 110 >=60 mL/min/1. 73m??? Result Comment: Estimated Gl omerular Filtration Rate (eGFR) is calculated using the 2020 CKD-EPI creatinine equation. This equation utilizes serum creatinine, sex, and age as parameters. The creatinine assay has traceable calibration to isotope dilution-mass spectrometry. Refer to KDIGO guidelines for clinical interpretation. In patients with unstable renal function, e.g. those with acute kidney injury, the eGFR may not accurately reflect actual GFR. Performed By: #### 02212-5 # ### [facility] CLIA [id number] [address] [place] [address] DEPRECATED HGB A1C BLD Collected: 02/20 2:57 PM Status: F Source: [facility] Order Comment: Specimen Type : BLOOD SPECIMEN Ordering Facility: [facility] Address: [address] [place] [address] TYPE CODE TESTS RESULT OUT OF RANGE REFERENCE UNITS LAB 4548-4(LOINC) HbA1c MFr Bld 5.8 High 4.3-5.6 % Result Comment: [place] [employer] guidelines indicate that patients with HgbA1c in the range 5.7-6.4% are at increased risk for development of diabetes, and intervention by lifestyle modification may be beneficial. HgbA1c greater or equal to 6.5% is considered diagnostic of diabetes. LAB 60172-4(LOINC) Est. average glucose Bld gHb Est-mCnc 120 mg/dL Result Comment: eAG: (Estima jasvir average glucose) is a calculated value from HgbA1c and is inbound call center representative of the average blood glucose level in the last 2-3 month period. Performed By: #### 65875-1 # ### [facility] CLIA [id number] [address] [place] [address] PROGRESS Observed: 02/20/2025 1:32 PM Status: COMPLETED Source: [facility] HNO ID: [id number] Author: IKE JACK MD Service: ? Author Type: Physician Type: Progress Notes Filed: 02/20/2025 14:43 Note Text: Chief Complaint Patient presents with: Physical Recording using [employer] [place] software for draft documentation of the visit was discussed with the patient/authorized inbound call center representative; all questions welcomed and answered. Patient/authorized inbound call center representative agreed to proceed HPI Hetal Husain is a 54 year old male who presents here today for Above Complaints. Annual Wellness Exam: - No new medical conditions or surgeries since last visit. - No updates to family history. Type 2 Diabetes Mellitus: - Last A1c was 5.9%. - Checks blood glucose levels approximately once a week; recent readings include 128 mg/dL (Tuesday), 119 mg/dL (previous Tuesday), 79 mg/dL, and 93 mg/dL. - Reports occasional hypoglycemic symptoms (shakiness) when missing meals. - Denies polyuria, polydipsia, vision changes, or paresthesia. - Adheres to a low-carb, high-protein diet but acknowledges room for improvement. - Currently taking metformin and glimepiride (2 tablets daily). Weight Management: - Interested in trying injectable medications like Ozempic or Mounjaro for weight loss and diabetes management. - No personal or family history of pancreatitis or thyroid cancer. - Brother has lost over 50 lbs using Zepbound. Erectile Dysfunction: - Tried Viagra once; experienced flushing and headache lasting several hours. - Does not plan to use Viagra again and is hesitant to try other medications. - Reports that sexual function is okay without medication. Right Heel Pain: - Soreness on the back of the heel, tender to touch and walk on. - Pain improves with continued walking. - Has an appointment with Dr. Gorman on March 13 for evaluation. - Taking naproxen BID for the past 2 weeks; has about 10-12 tablets left. Depression: - Managed with Cymbalta; reports it is effective. - Occasionally forgets to take Cymbalta, approximately 2 times per week. Obstructive Sleep Apnea: - Previously used CPAP but has not used it recently. - Denies loud snoring. Lifestyle: - Smokes half a pack of cigarettes per day; has smoked for approximately 25 years. - Previously used vaping but has not used it in over a year. - Drinks alcohol once a week, consuming 6-8 drinks on Fridays. - Denies use of other drugs. Past medical history, appointments, medications, allergies reviewed. Previous Medical History PAST MEDICAL HISTORY Diagnosis Date Achilles tendinitis of left lower extremity Achilles tendinitis, left leg Current moderate episode of major depressive disorder without prior episode (HCC) Diabetes mellitus type II (HCC) Elevated LFTs Essential hypertension Hepatic steatosis Hyperplastic colonic polyp Hypertension Mixed hyperlipidemia Obesity (BMI 30-39.9) Sleep apnea not using CPAP Tobacco use disorder Previous Surgical History PAST SURGICAL HISTORY Procedure Laterality Date ACHILLES TENDON SURGERY HX Left 01/27/2024 CHOLECYSTECTOMY Cholecystectomy COLONOSCOPY FLX DX W/COLLJ SPEC WHEN PFRMD 05/06/2020 Colonoscopy-repeat in 10 years DANTE PAST SURGICAL HISTORY OF 09/2020 sinoplasty Family History FAMILY HISTORY Problem Relation Age of Onset Melanoma Mother Fibromyalgia Mother Hypertension Father Coronary Artery Disease Maternal Grandfather CABG x4 Heart Paternal Grandfather [place] No Known Problems Daughter No Known Problems Son Patient Allergies ALLERGIES Allergen Reactions Viagra [Sildenafil] Other: See Comments Headache, flushed Lisinopril (Bulk) Cough Wellbutrin [Bupropi* Other: See Comments Anxiety Zoloft [Sertraline] Other: See Comments Sexual side effects. Current Medications Current Outpatient Medications on File Prior to Visit Medication Sig atorvastatin (LIPITOR) 10 mg tablet Take 1 tablet by mouth daily at bedtime. For cholesterol. DULoxetine DR (CYMBALTA) 20 mg capsule Take 1 capsule by mouth once daily. potassium chloride (K-TAB) 10 mEq tablet Take 1 tablet by mouth daily with breakfast. metFORMIN (GLUCOPHAGE) 1,000 mg tablet Take 1 tablet by mouth two times a day with meals. glimepiride (AMARYL) 4 mg tablet Take 2 tablets by mouth once daily. losartan (COZAAR) 100 mg tablet Take 1 tablet by mouth once daily. amLODIPine (NORVASC) 5 mg tablet Take 1 tablet by mouth once daily. metoprolol succinate ER (TOPROL XL) 100 mg Take 1 tablet by mouth once daily. hydroCHLOROthiazide 50 mg tablet Take 1 tablet by mouth once daily. sildenafil (VIAGRA) 50 mg tablet Take 1 tablet by mouth once daily as needed (30-60 minutes prior to sexual intercourse). Take 30-60 minutes before sexual activity. aspirin, enteric coated (ADULT LOW DOSE ASPIRIN) 81 mg EC tablet Take 1 tablet by mouth once daily. blood sugar diagnostic (BLOOD GLUCOSE TEST) test strip Test blood sugar(s) 1 times daily. Dx: Type 2 DM - Uncontrolled E11.65 Insulin: No Lancets Test blood sugar(s) 1 times daily. Dx: Type 2 DM - Uncontrolled E11.65 Insulin: No meloxicam (MOBIC) 15 mg tablet Take 1 tablet by mouth daily with food. COMPOUNDED PRESCRIPTION Take by mouth once daily. Centrum Silver multivitamin No current facility-administered medications on file prior to visit. Social History SOCIAL HISTORY[1] Review of Symptoms REVIEW OF SYSTEMS GENERAL: No weight loss, malaise or fevers HEENT: Negative for frequent or significant headaches, No changes in hearing or vision, no nose bleeds or other nasal problems NECK: Negative for lumps, goiter, pain and significant neck swelling RESPIRATORY: Negative for cough, hemoptysis, wheezing, COPD, dyspnea or shortness of breath CARDIOVASCULAR: Negative for chest pain, leg swelling, hypertension, CHF or palpitations GI: No nausea, vomiting, or diarrhea : No history of dysuria, frequency or incontinence, No difficulty urinating, nocturia > 1 time per night or hematuria MUSCULOSKELETAL: See HPI SKIN: Negative for lesions, rash, and itching PSYCH: Negative for sleep disturbance, mood disorder and recent psychosocial stressors HEMATOLOGY/LYMPHOLOGY: Negative for prolonged bleeding, bruising easily or swollen nodes ENDOCRINE: Negative for cold or heat intolerance, polyuria, polydipsia and goiter NEURO: No history of headaches, syncope, paralysis, seizures or tremors EXAM: BP 138/74 Pulse 62 Ht 177.8 cm (5' 10) Wt 120.4 kg (265 lb 6.4 oz) SpO2 96% BMI 38.08 kg/m? General Appearance: Well appearing, alert, in no acute distress, well-hydrated, well nourished. Obese. Skin: Skin color, texture, turgor normal, no suspicious rashes or lesions. Head: Normocephalic, no masses, lesions, tenderness or abnormalities. Eyes: Anicteric sclera. Pupils are equally round and reactive to light. Extraocular movements are intact. . Ears: External ears normal, canals clear. Nose/Sinuses: Nares normal, septum midline, mucosa normal, no drainage or sinus tenderness. Oropharynx: Lips, mucosa, and tongue normal, teeth and gums normal, oropharynx normal. Neck: Supple, no adenopathy; thyroid symmetric, normal size, no bruits. Lungs: Lungs clear to auscultation. No wheezing, rhonchi, rales.. Heart: RRR without murmur, gallop, or rubs. No ectopy. Abdomen: Normal abdominal exam, Abdomen soft, non-tender. Bowel sounds normal. No masses, organomegaly. Extremities: No deformities, edema, skin discoloration, clubbing or cyanosis. Good capillary refill. . Peripheral Pulses: Normal. Neurologic: Gait normal. Reflexes normal and symmetric. Sensation grossly intact.. Lymph Nodes: No cervical lymphadenopathy and No supraclavicular lymphadenopathy Musculoskeletal: TTP over right achilles insertion site without swelling, bruising. Achilles tendon intact. Normal Yan test. 5/5 strength in right foot/ankle. Normal ROM. Health Maintenance List Anxiety Screening Never done Prostate Cancer Screening Discussion due on 12/22/2020 DTaP,Tdap,Td Vaccine(1 - Tdap) due on 02/20/2026 Influenza Vaccine(1) due on 03/11/2025 HbA1C due on 05/19/2025 Diabetic Foot Exam due on 08/15/2025 Dilated Retinal Exam due on 09/26/2025 Urine Albumin:Creatinine Ratio due on 11/16/2025 LDL Cholesterol due on 11/16/2025 Annual PCP Team Chronic Disease Visit due on 02/20/2026 Colorectal Cancer Screening due on 05/06/2030 Hepatitis C Screening Completed Shingrix Vaccine Completed Pneumococcal Vaccine: 50+ Completed Hepatitis B Vaccine Discontinued HIV Screening Discontinued Data reviewed Latest Ref Rng 11/16/2024 11/30/2024 Protein, Total 6.3 - 8.0 g/dL 7.2 Albumin 3.9 - 4.9 g/dL 4.5 Calcium 8.5 - 10.2 mg/dL 9.6 Bilirubin, Total 0.2 - 1.3 mg/dL 0.4 Alkaline Phosphatase 38 - 113 U/L 56 AST 14 - 40 U/L 26 ALT 10 - 54 U/L 40 Glucose 74 - 99 mg/dL 79 BUN 9 - 24 mg/dL 21 Creatinine 0.73 - 1.22 mg/dL 0.69 (L) Sodium 136 - 144 mmol/L 141 Potassium 3.7 - 5.1 mmol/L 3.7 Chloride 98 - 107 mmol/L 103 CO2 22 - 30 mmol/L 28 Anion Gap 8 - 15 mmol/L 10 eGFR >=60 mL/min/1.73m? 109 Total Cholesterol, Nonfasting <200 mg/dL 130 Triglycerides, Nonfasting <150 mg/dL 130 HDL Cholesterol, Nonfasting >39 mg/dL 38 (L) LDL Cholesterol Calculated, Nonfasting <100 mg/dL 69 Non HDL Cholesterol, Nonfasting <130 mg/dL 92 VLDL Cholesterol, Nonfasting <30 mg/dL 19 Total Chol/HDL Ratio, Nonfasting <5.10 mg/dL 3.42 LDL/HDL Ratio, Nonfasting <2.54 mg/dL 1.82 Creatinine, Ur Random (UCRR) 20.0 - 300.0 mg/dL 56.4 Albumin, Urine Random mg/L 104.9 Albumin/Creat Ratio <30 mg/g 186 (H) Hemoglobin A1C 4.3 - 5.6 % 5.9 (H) Estimated Average Glucose mg/dL 123 Testosterone 193 - 824 ng/dL 293 TSH 0.270 - 4.200 mIU/L 2.270 Legend: (L) Low (H) High 1. Annual physical exam (Z00.00) - No acute concerns identified on review of systems or physical exam. - Discussed health maintenance, including vaccinations and cancer screening. 2. Diabetes mellitus type II (HCC) (E11.9) 3. Glucosuria (R81) 4. Obesity (BMI 30-39.9) (E66.9) - HbA1c previously improved to 5.9%; home glucose readings generally within target range, though patient is only checking once weekly. - Occasional hypoglycemic episodes associated with missed meals; currently on glimepiride 2 mg BID and metformin. - Start Ozempic 0.25 mg weekly for 1 month, then increase to 0.5 mg weekly if tolerated; discussed potential side effects (nausea, vomiting, appetite suppression) and rare risk of pancreatitis and thyroid cancer. - Reduce glimepiride to 1 mg daily; instructed to monitor for hypoglycemia and report any readings <70 mg/dL or symptoms of hypoglycemia. - Encouraged daily fasting glucose checks and to notify if readings consistently >130 mg/dL. - Advised continuation of low-carb, high-protein diet and regular exercise; target 5% weight loss (13 lbs) over 3 months. - Order HbA1c and comprehensive metabolic panel. - Follow-up in 6 months, or sooner if issues with glycemic control or medication side effects. 5. Primary hypertension (I10) 6. Mixed hyperlipidemia (E78.2) - Blood pressure well controlled on current regimen (amlodipine, hydrochlorothiazide, losartan, metoprolol). - Lipid management with Lipitor; no recent lab abnormalities noted. - Advised continuation of current medications as prescribed. - Order lipid panel and basic metabolic panel. 7. Sleep apnea, unspecified type (G47.30) - Not currently using CPAP; no significant snoring reported. - Advised to resume CPAP if symptoms of sleep apnea recur (loud snoring, daytime fatigue, observed apneas). - Weight loss may improve symptoms. 8. Current moderate episode of major depressive disorder without prior episode (HCC) (F32.1) - Stable on Cymbalta (duloxetine); occasional missed doses. - Advised to take medication consistently to avoid withdrawal symptoms. 9. Tendonitis, Achilles, right (M76.61) - Right Achilles tendon pain, similar to previous left-sided issue; tenderness at insertion site, no signs of rupture. - Prescribed naproxen BID for pain management; advised against concurrent use of other NSAIDs. - Recommended ice application 15-20 minutes intermittently and stretching exercises. - Follow-up with Dr. Gorman on March 13. 10. Screening for prostate cancer (Z12.5) - Family history of prostate cancer (father undergoing biopsy). - Order PSA test to establish baseline. 11. Encounter for immunization (Z23) - Administer second dose of shingles vaccine. - Administer Prevnar 20 for pneumococcal protection. - Discussed potential side effects (sore arm, fatigue, low-grade fever, headache, muscle aches); instructed to call if redness or swelling at injection site occurs. Ike Jack MD [1] Social History Tobacco Use Smoking status: Every Day Current packs/day: 0.50 Average packs/day: 0.5 packs/day for 25.0 years (12.5 ttl pk-yrs) Types: Cigarettes Passive exposure: Never Smokeless tobacco: Former Types: Snuff Quit date: 07/14/2015 Vaping Use Vaping status: Former Substances: Flavoring Devices: Pre-filled or refillable cartridge Substance Use Topics Alcohol use: Yes Alcohol/week: 14.0 - 27.0 standard drinks of alcohol Types: 14 - 27 Standard drinks or equivalent per week Comment: 8 drinks most Tuesday Drug use: Not Currently Types: Marijuana CNOV Observed: 02/20/2025 1:20 PM Status: COMPLETED Source: [facility] HETAL HUSAIN ([id number]) 1970 M Date Time Provider Department 02/20/25 1:20 PM IKE JACK During your visit today, we recorded the following information about you: Pulse Blood pressure Weight Height 62/minute 138/74 120.4 kg 1.778 m Ike Jack MD 02/20/2025 2:43 PM Signed Chief Complaint Patient presents with: Physical Recording using [employer] software for draft documentation of the visit was discussed with the patient/authorized inbound call center representative; all questions welcomed and answered. Patient/authorized inbound call center representative agreed to proceed HPI Hetal Husain is a 54 year old male who presents here today for Above Complaints. Annual Wellness Exam: - No new medical conditions or surgeries since last visit. - No updates to family history. Type 2 Diabetes Mellitus: - Last A1c was 5.9%. - Checks blood glucose levels approximately once a week; recent readings include 128 mg/dL (Tuesday), 119 mg/dL (previous Tuesday), 79 mg/dL, and 93 mg/dL. - Reports occasional hypoglycemic symptoms (shakiness) when missing meals. - Denies polyuria, polydipsia, vision changes, or paresthesia. - Adheres to a low-carb, high-protein diet but acknowledges room for improvement. - Currently taking metformin and glimepiride (2 tablets daily). Weight Management: - Interested in trying injectable medications like Ozempic or Mounjaro for weight loss and diabetes management. - No personal or family history of pancreatitis or thyroid cancer. - Brother has lost over 50 lbs using Zepbound. Erectile Dysfunction: - Tried Viagra once; experienced flushing and headache lasting several hours. - Does not plan to use Viagra again and is hesitant to try other medications. - Reports that sexual function is okay without medication. Right Heel Pain: - Soreness on the back of the heel, tender to touch and walk on. - Pain improves with continued walking. - Has an appointment with Dr. Gorman on March 13 for evaluation. - Taking naproxen BID for the past 2 weeks; has about 10-12 tablets left. Depression: - Managed with Cymbalta; reports it is effective. - Occasionally forgets to take Cymbalta, approximately 2 times per week. Obstructive Sleep Apnea: - Previously used CPAP but has not used it recently. - Denies loud snoring. Lifestyle: - Smokes half a pack of cigarettes per day; has smoked for approximately 25 years. - Previously used vaping but has not used it in over a year. - Drinks alcohol once a week, consuming 6-8 drinks on Fridays. - Denies use of other drugs. Past medical history, appointments, medications, allergies reviewed. Previous Medical History PAST MEDICAL HISTORY Diagnosis Date Achilles tendinitis of left lower extremity Achilles tendinitis, left leg Current moderate episode of major depressive disorder without prior episode (HCC) Diabetes mellitus type II (HCC) Elevated LFTs Essential hypertension Hepatic steatosis Hyperplastic colonic polyp Hypertension Mixed hyperlipidemia Obesity (BMI 30-39.9) Sleep apnea not using CPAP Tobacco use disorder Previous Surgical History PAST SURGICAL HISTORY Procedure Laterality Date ACHILLES TENDON SURGERY HX Left 01/27/2024 CHOLECYSTECTOMY Cholecystectomy COLONOSCOPY FLX DX W/COLLJ SPEC WHEN PFRMD 05/06/2020 Colonoscopy-repeat in 10 years LASIK PAST SURGICAL HISTORY OF 09/2020 sinoplasty Family History FAMILY HISTORY Problem Relation Age of Onset Melanoma Mother Fibromyalgia Mother Hypertension Father Coronary Artery Disease Maternal Grandfather CABG x4 Heart Paternal Grandfather [place] No Known Problems Daughter No Known Problems Son Patient Allergies ALLERGIES Allergen Reactions Viagra [Sildenafil] Other: See Comments Headache, flushed Lisinopril (Bulk) Cough Wellbutrin [Bupropi* Other: See Comments Anxiety Zoloft [Sertraline] Other: See Comments Sexual side effects. Current Medications Current Outpatient Medications on File Prior to Visit Medication Sig atorvastatin (LIPITOR) 10 mg tablet Take 1 tablet by mouth daily at bedtime. For cholesterol. DULoxetine DR (CYMBALTA) 20 mg capsule Take 1 capsule by mouth once daily. potassium chloride (K-TAB) 10 mEq tablet Take 1 tablet by mouth daily with breakfast. metFORMIN (GLUCOPHAGE) 1,000 mg tablet Take 1 tablet by mouth two times a day with meals. glimepiride (AMARYL) 4 mg tablet Take 2 tablets by mouth once daily. losartan (COZAAR) 100 mg tablet Take 1 tablet by mouth once daily. amLODIPine (NORVASC) 5 mg tablet Take 1 tablet by mouth once daily. metoprolol succinate ER (TOPROL XL) 100 mg Take 1 tablet by mouth once daily. hydroCHLOROthiazide 50 mg tablet Take 1 tablet by mouth once daily. sildenafil (VIAGRA) 50 mg tablet Take 1 tablet by mouth once daily as needed (30-60 minutes prior to sexual intercourse). Take 30-60 minutes before sexual activity. aspirin, enteric coated (ADULT LOW DOSE ASPIRIN) 81 mg EC tablet Take 1 tablet by mouth once daily. blood sugar diagnostic (BLOOD GLUCOSE TEST) test strip Test blood sugar(s) 1 times daily. Dx: Type 2 DM - Uncontrolled E11.65 Insulin: No Lancets Test blood sugar(s) 1 times daily. Dx: Type 2 DM - Uncontrolled E11.65 Insulin: No meloxicam (MOBIC) 15 mg tablet Take 1 tablet by mouth daily with food. COMPOUNDED PRESCRIPTION Take by mouth once daily. Centrum Silver multivitamin No current facility-administered medications on file prior to visit. Social History SOCIAL HISTORY[1] Review of Symptoms REVIEW OF SYSTEMS GENERAL: No weight loss, malaise or fevers HEENT: Negative for frequent or significant headaches, No changes in hearing or vision, no nose bleeds or other nasal problems NECK: Negative for lumps, goiter, pain and significant neck swelling RESPIRATORY: Negative for cough, hemoptysis, wheezing, COPD, dyspnea or shortness of breath CARDIOVASCULAR: Negative for chest pain, leg swelling, hypertension, CHF or palpitations GI: No nausea, vomiting, or diarrhea : No history of dysuria, frequency or incontinence, No difficulty urinating, nocturia > 1 time per night or hematuria MUSCULOSKELETAL: See HPI SKIN: Negative for lesions, rash, and itching PSYCH: Negative for sleep disturbance, mood disorder and recent psychosocial stressors HEMATOLOGY/LYMPHOLOGY: Negative for prolonged bleeding, bruising easily or swollen nodes ENDOCRINE: Negative for cold or heat intolerance, polyuria, polydipsia and goiter NEURO: No history of headaches, syncope, paralysis, seizures or tremors EXAM: BP 138/74 Pulse 62 Ht 177.8 cm (5' 10) Wt 120.4 kg (265 lb 6.4 oz) SpO2 96% BMI 38.08 kg/m? General Appearance: Well appearing, alert, in no acute distress, well-hydrated, well nourished. Obese. Skin: Skin color, texture, turgor normal, no suspicious rashes or lesions. Head: Normocephalic, no masses, lesions, tenderness or abnormalities. Eyes: Anicteric sclera. Pupils are equally round and reactive to light. Extraocular movements are intact. . Ears: External ears normal, canals clear. Nose/Sinuses: Nares normal, septum midline, mucosa normal, no drainage or sinus tenderness. Oropharynx: Lips, mucosa, and tongue normal, teeth and gums normal, oropharynx normal. Neck: Supple, no adenopathy; thyroid symmetric, normal size, no bruits. Lungs: Lungs clear to auscultation. No wheezing, rhonchi, rales.. Heart: RRR without murmur, gallop, or rubs. No ectopy. Abdomen: Normal abdominal exam, Abdomen soft, non-tender. Bowel sounds normal. No masses, organomegaly. Extremities: No deformities, edema, skin discoloration, clubbing or cyanosis. Good capillary refill. . Peripheral Pulses: Normal. Neurologic: Gait normal. Reflexes normal and symmetric. Sensation grossly intact.. Lymph Nodes: No cervical lymphadenopathy and No supraclavicular lymphadenopathy Musculoskeletal: TTP over right achilles insertion site without swelling, bruising. Achilles tendon intact. Normal Yan test. 5/5 strength in right foot/ankle. Normal ROM. Health Maintenance List Anxiety Screening Never done Prostate Cancer Screening Discussion due on 12/22/2020 DTaP,Tdap,Td Vaccine(1 - Tdap) due on 02/20/2026 Influenza Vaccine(1) due on 03/11/2025 HbA1C due on 05/19/2025 Diabetic Foot Exam due on 08/15/2025 Dilated Retinal Exam due on 09/26/2025 Urine Albumin:Creatinine Ratio due on 11/16/2025 LDL Cholesterol due on 11/16/2025 Annual PCP Team Chronic Disease Visit due on 02/20/2026 Colorectal Cancer Screening due on 05/06/2030 Hepatitis C Screening Completed Shingrix Vaccine Completed Pneumococcal Vaccine: 50+ Completed Hepatitis B Vaccine Discontinued HIV Screening Discontinued Data reviewed Latest Ref Rng 11/16/2024 11/30/2024 Protein, Total 6.3 - 8.0 g/dL 7.2 Albumin 3.9 - 4.9 g/dL 4.5 Calcium 8.5 - 10.2 mg/dL 9.6 Bilirubin, Total 0.2 - 1.3 mg/dL 0.4 Alkaline Phosphatase 38 - 113 U/L 56 AST 14 - 40 U/L 26 ALT 10 - 54 U/L 40 Glucose 74 - 99 mg/dL 79 BUN 9 - 24 mg/dL 21 Creatinine 0.73 - 1.22 mg/dL 0.69 (L) Sodium 136 - 144 mmol/L 141 Potassium 3.7 - 5.1 mmol/L 3.7 Chloride 98 - 107 mmol/L 103 CO2 22 - 30 mmol/L 28 Anion Gap 8 - 15 mmol/L 10 eGFR >=60 mL/min/1.73m? 109 Total Cholesterol, Nonfasting <200 mg/dL 130 Triglycerides, Nonfasting <150 mg/dL 130 HDL Cholesterol, Nonfasting >39 mg/dL 38 (L) LDL Cholesterol Calculated, Nonfasting <100 mg/dL 69 Non HDL Cholesterol, Nonfasting <130 mg/dL 92 VLDL Cholesterol, Nonfasting <30 mg/dL 19 Total Chol/HDL Ratio, Nonfasting <5.10 mg/dL 3.42 LDL/HDL Ratio, Nonfasting <2.54 mg/dL 1.82 Creatinine, Ur Random (UCRR) 20.0 - 300.0 mg/dL 56.4 Albumin, Urine Random mg/L 104.9 Albumin/Creat Ratio <30 mg/g 186 (H) Hemoglobin A1C 4.3 - 5.6 % 5.9 (H) Estimated Average Glucose mg/dL 123 Testosterone 193 - 824 ng/dL 293 TSH 0.270 - 4.200 mIU/L 2.270 Legend: (L) Low (H) High 1. Annual physical exam (Z00.00) - No acute concerns identified on review of systems or physical exam. - Discussed health maintenance, including vaccinations and cancer screening. 2. Diabetes mellitus type II (HCC) (E11.9) 3. Glucosuria (R81) 4. Obesity (BMI 30-39.9) (E66.9) - HbA1c previously improved to 5.9%; home glucose readings generally within target range, though patient is only checking once weekly. - Occasional hypoglycemic episodes associated with missed meals; currently on glimepiride 2 mg BID and metformin. - Start Ozempic 0.25 mg weekly for 1 month, then increase to 0.5 mg weekly if tolerated; discussed potential side effects (nausea, vomiting, appetite suppression) and rare risk of pancreatitis and thyroid cancer. - Reduce glimepiride to 1 mg daily; instructed to monitor for hypoglycemia and report any readings <70 mg/dL or symptoms of hypoglycemia. - Encouraged daily fasting glucose checks and to notify if readings consistently >130 mg/dL. - Advised continuation of low-carb, high-protein diet and regular exercise; target 5% weight loss (13 lbs) over 3 months. - Order HbA1c and comprehensive metabolic panel. - Follow-up in 6 months, or sooner if issues with glycemic control or medication side effects. 5. Primary hypertension (I10) 6. Mixed hyperlipidemia (E78.2) - Blood pressure well controlled on current regimen (amlodipine, hydrochlorothiazide, losartan, metoprolol). - Lipid management with Lipitor; no recent lab abnormalities noted. - Advised continuation of current medications as prescribed. - Order lipid panel and basic metabolic panel. 7. Sleep apnea, unspecified type (G47.30) - Not currently using CPAP; no significant snoring reported. - Advised to resume CPAP if symptoms of sleep apnea recur (loud snoring, daytime fatigue, observed apneas). - Weight loss may improve symptoms. 8. Current moderate episode of major depressive disorder without prior episode (HCC) (F32.1) - Stable on Cymbalta (duloxetine); occasional missed doses. - Advised to take medication consistently to avoid withdrawal symptoms. 9. Tendonitis, Achilles, right (M76.61) - Right Achilles tendon pain, similar to previous left-sided issue; tenderness at insertion site, no signs of rupture. - Prescribed naproxen BID for pain management; advised against concurrent use of other NSAIDs. - Recommended ice application 15-20 minutes intermittently and stretching exercises. - Follow-up with Dr. Gorman on March 13. 10. Screening for prostate cancer (Z12.5) - Family history of prostate cancer (father undergoing biopsy). - Order PSA test to establish baseline. 11. Encounter for immunization (Z23) - Administer second dose of shingles vaccine. - Administer Prevnar 20 for pneumococcal protection. - Discussed potential side effects (sore arm, fatigue, low-grade fever, headache, muscle aches); instructed to call if redness or swelling at injection site occurs. Ike Jack MD [1] Social History Tobacco Use Smoking status: Every Day Current packs/day: 0.50 Average packs/day: 0.5 packs/day for 25.0 years (12.5 ttl pk-yrs) Types: Cigarettes Passive exposure: Never Smokeless tobacco: Former Types: Snuff Quit date: 07/14/2015 Vaping Use Vaping status: Former Substances: Flavoring Devices: Pre-filled or refillable cartridge Substance Use Topics Alcohol use: Yes Alcohol/week: 14.0 - 27.0 standard drinks of alcohol Types: 14 - 27 Standard drinks or equivalent per week Comment: 8 drinks most Tuesday Drug use: Not Currently Types: Marijuana Ike Jack MD 02/20/2025 2:16 PM Signed - Continue your metformin and potassium supplements as prescribed. - Reduce glimepiride from two tablets daily to one tablet daily to lower your risk of low blood sugars. - Begin Ozempic (semaglutide) 0.25 mg by weekly injection; prescription sent to [facility] in [place]. After one month, if you tolerate it well and your morning sugars are under control, call to request increasing the dose to 0.5 mg weekly. - Check your fasting blood sugar every morning before eating or drinking; keep a log of readings. - If your fasting sugar rises above 130 mg/dL or falls below 70 mg/dL--or if you feel sweaty, shaky, nauseous, or confused--check your sugar immediately and contact our office. - Take the prescribed naproxen twice daily for your Achilles pain; do not take ibuprofen or other NSAIDs at the same time. - Apply ice to the back of your heel for 15-20 minutes several times a day and perform Achilles stretches (use a towel or band to gently pull your foot toward you). - Complete your scheduled follow-up with Dr. Gorman on March 13 for further evaluation of your heel; share any treatment recommendations with our office. - Maintain your low-carb, high-protein diet to support blood sugar control and weight management. - Limit alcohol to no more than two drinks per day and avoid binge drinking; if you find it difficult to reduce, contact us for support. - Consider quitting smoking; if you decide you?re ready for help, call to discuss nicotine replacement (patches, gum) or medications like Chantix. - Today you received the second dose of shingles vaccine (Shingrix) and the Prevnar 20 pneumonia vaccine. Expect possible sore arm, fatigue, low-grade fever, or headache; call if you have significant redness or swelling at the injection sites. - Blood was drawn today for A1c, fasting glucose, potassium, PSA, and routine labs. We?ll review results and plan your next visit in about six months if your diabetes remains well controlled. - If you?d like to try a different erectile dysfunction medication (for example, Cialis), please call our office to discuss options. Allergies As of Date: 02/20/2025 Noted Allergy Reaction VIAGRA (SILDENAFIL) 02/20/2025 14 - Other: See Comments Comments: Headache, flushed LISINOPRIL (BULK) 07/14/2017 3 - Cough WELLBUTRIN (BUPROPION) 09/06/2023 14 - Other: See Comments Comments: Anxiety ZOLOFT (SERTRALINE) 08/11/2020 14 - Other: See Comments Comments: Sexual side effects. Date Reviewed: 02/20/2025 Reviewed by: Ike Jack MD - Fully Assessed Reason for Visit: Physical [83] Primary Visit Diagnosis:Annual physical exam [Z00.00] Other Visit Diagnoses:Diabetes mellitus type II (HCC) [E11.9] Primary hypertension [I10] Mixed hyperlipidemia [E78.2] Sleep apnea, unspecified type [G47.30] Current moderate episode of major depressive disorder without prior episode (HCC) [F32.1] Obesity (BMI 30-39.9) [E66.9] Glucosuria [R81] Tendonitis, Achilles, right [M76.61] Screening for prostate cancer [Z12.5] Encounter for immunization [Z23] Order(s):HEMOGLOBIN A1C [BLLTZ4I] Order #: [id number] FUTURE COMPREHENSIVE METABOLIC PANEL [SQCMP] Order #: [id number] FUTURE semaglutide (OZEMPIC) 0.25 mg or 0.5 mg (2 mg/3 mL) penInject 0.25 mg subcutaneously one time a week.Disp: 3 mLRfl: 0 glimepiride (AMARYL) 4 mg tabletTake 1 tablet by mouth daily with breakfast.Disp: 90 tabletRfl: 0 naproxen (NAPROSYN) 500 mg tabletTake 1 tablet by mouth two times a day as needed. Take with food.Disp: 60 tabletRfl: 0 ZOSTER VACCINE, RECOMBINANT (SHINGRIX) [39550LKX] Order #: [id number] PNEUMOCOCCAL VACCINE, 20 VALENT (PREVNAR 20) [06515GOM] Order #: [id number] PSA/PROSTATE SPECIFIC ANTIGEN SCREENING [SQPSAS1] Order #: [id number] FUTURE Prescriptions as of 02/20/2025 - semaglutide (OZEMPIC) 0.25 mg or 0.5 mg (2 mg/3 mL) pen Inject 0.25 mg subcutaneously one time a week. - glimepiride (AMARYL) 4 mg tablet Take 1 tablet by mouth daily with breakfast. - naproxen (NAPROSYN) 500 mg tablet Take 1 tablet by mouth two times a day as needed. Take with food. - atorvastatin (LIPITOR) 10 mg tablet Take 1 tablet by mouth daily at bedtime. For cholesterol. - DULoxetine DR (CYMBALTA) 20 mg capsule Take 1 capsule by mouth once daily. - potassium chloride (K-TAB) 10 mEq tablet Take 1 tablet by mouth daily with breakfast. - metFORMIN (GLUCOPHAGE) 1,000 mg tablet Take 1 tablet by mouth two times a day with meals. - losartan (COZAAR) 100 mg tablet Take 1 tablet by mouth once daily. - amLODIPine (NORVASC) 5 mg tablet Take 1 tablet by mouth once daily. - metoprolol succinate ER (TOPROL XL) 100 mg Take 1 tablet by mouth once daily. - hydroCHLOROthiazide 50 mg tablet Take 1 tablet by mouth once daily. - aspirin, enteric coated (ADULT LOW DOSE ASPIRIN) 81 mg EC tablet Take 1 tablet by mouth once daily. - blood sugar diagnostic (BLOOD GLUCOSE TEST) test strip Test blood sugar(s) 1 times daily. Dx: Type 2 DM - Uncontrolled E11.65 Insulin: No - Lancets Test blood sugar(s) 1 times daily. Dx: Type 2 DM - Uncontrolled E11.65 Insulin: No - COMPOUNDED PRESCRIPTION Take by mouth once daily. 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 - Reduce glimepiride from two tablets daily to one tablet daily to lower your risk of low blood sugars. - Begin Ozempic (semaglutide) 0.25 mg by weekly injection; prescription sent to [facility] in [place]. After one month, if you tolerate it well and your morning sugars are under control, call to request increasing the dose to 0.5 mg weekly. - Check your fasting blood sugar every morning before eating or drinking; keep a log of readings. - If your fasting sugar rises above 130 mg/dL or falls below 70 mg/dL--or if you feel sweaty, shaky, nauseous, or confused--check your sugar immediately and contact our office. - Take the prescribed naproxen twice daily for your Achilles pain; do not take ibuprofen or other NSAIDs at the same time. - Apply ice to the back of your heel for 15-20 minutes several times a day and perform Achilles stretches (use a towel or band to gently pull your foot toward you). - Complete your scheduled follow-up with Dr. Gorman on March 13 for further evaluation of your heel; share any treatment recommendations with our office. - Maintain your low-carb, high-protein diet to support blood sugar control and weight management. - Limit alcohol to no more than two drinks per day and avoid binge drinking; if you find it difficult to reduce, contact us for support. - Consider quitting smoking; if you decide you?re ready for help, call to discuss nicotine replacement (patches, gum) or medications like Chantix. - Today you received the second dose of shingles vaccine (Shingrix) and the Prevnar 20 pneumonia vaccine. Expect possible sore arm, fatigue, low-grade fever, or headache; call if you have significant redness or swelling at the injection sites. - Blood was drawn today for A1c, fasting glucose, potassium, PSA, and routine labs. We?ll review results and plan your next visit in about six months if your diabetes remains well controlled. - If you?d like to try a different erectile dysfunction medication (for example, Cialis), please call our office to discuss options. Prescriptions ordered this encounter Disp Refills Start End SEMAGLUTIDE 0.25 MG OR 0.5 MG (2 MG/* 3 mL 0 02/20/2025 03/22/2025 Route: SQ Sig: Inject 0.25 mg subcutaneously one time a week. GLIMEPIRIDE 4 MG TABLET 90 t* 0 02/20/2025 Class: Med Update Route: PO Sig: Take 1 tablet by mouth daily with breakfast. NAPROXEN 500 MG TABLET 60 t* 0 02/20/2025 Route: PO Sig: Take 1 tablet by mouth two times a day as needed. Take with food. Medications Discontinued During This Encounter Prescriptions - sildenafil (VIAGRA) 50 mg tablet (Discontinued) Take 1 tablet by mouth once daily as needed (30-60 minutes prior to sexual intercourse). Take 30-60 minutes before sexual activity. - glimepiride (AMARYL) 4 mg tablet (Discontinued) Take 2 tablets by mouth once daily. - meloxicam (MOBIC) 15 mg tablet (Discontinued) Take 1 tablet by mouth daily with food. Disposition: Return in about 6 months (around 08/23/2025) for Follow up with [facility] for routine. Follow-up and Disposition History for Encounter Date Provider Department Center 02/20/2025 [id number] JACKWS Yony [facility] Encounter Status:Closed by IKE JACK on 02/20/25 TESTOST SERPL-MCNC Collected: 10:46 AM Status: F Source: [facility] Order Comment: Specimen Type : BLOOD SPECIMEN Ordering Facility: [facility] Address: [address] [place] [address] TYPE CODE TESTS RESULT OUT OF RANGE REFERENCE UNITS LAB 2986[facility] Testost SerPl-mCnc 293 193-824 ng/dL Result Comment: A testostero ne level in the 193-320 ng/dL range with associated clinical symptoms is considered low and may indicate hypogonadism (from NEJM 2010 363:123-135). Results >320 ng/dL are considered normal. Performed By: #### 2986-8, 3 016-3 #### [facility] CLIA [id number] [address] [place] [address] [place] TSH SERPL-ACNC Collected: 10:46 AM Status: F Source: [facility] Order Comment: Specimen Type : BLOOD SPECIMEN Ordering Facility: [facility] Address: [address] [place] [address] TYPE CODE TESTS RESULT OUT OF RANGE REFERENCE UNITS LAB 3016-3(LOINC) TSH SerPl-aCnc 2.270 0.270-4.200 mIU/L Performed By: #### 2986-8, 3 016-3 #### [facility] CLIA [id number] [address] [place] [address] [place] Observed: 11/30/2024 10:17 AM Status: COMPLETED Source: [facility] HNO ID: [id number] Author: IKE JACK MD Service: ? Author Type: Physician Type: Progress Notes Filed: 11/30/2024 11:09 Note Text: Chief Complaint Patient presents with: Erectile Dysfunction Recording using [employer] software for draft documentation of the visit was discussed with the patient/authorized inbound call center representative; all questions welcomed and answered. Patient/authorized inbound call center representative agreed to proceed HPI Hetal Husain is a 54 year old male who presents here today for Above Complaints. Erectile Dysfunction: - Difficulty achieving full erection, approximately 50% rigidity. - Symptoms occur consistently during sexual intercourse and morning erections. - Decreased frequency of morning erections. - Onset coincided with changes in antidepressant medication (Prozac) around May. - No improvement despite medication adjustments. - Difficulty achieving orgasm. - Denies pain during erection, hematuria, or hematospermia. - No new penile curvature or discomfort. - Denies dysuria, weak urinary stream, or nocturia. - No chest pain, syncope, or claudication. - Libido and energy levels remain normal. - Sexual activity approximately once a week. - Denies cold extremities or color changes in feet. - Denies rash in genital area. Diabetes: - Recent HbA1c improved to 5.9%. - On losartan for elevated urine fuvguce-cu-sswwwqthxo ratio. Past medical history, appointments, medications, allergies reviewed. Previous Medical History PAST MEDICAL HISTORY Diagnosis Date Achilles tendinitis of left lower extremity Achilles tendinitis, left leg Current moderate episode of major depressive disorder without prior episode (HCC) Diabetes mellitus type II (HCC) Elevated LFTs Essential hypertension Hepatic steatosis Hyperplastic colonic polyp Hypertension Mixed hyperlipidemia Obesity (BMI 30-39.9) Prediabetes Sleep apnea not using CPAP Tobacco use disorder Previous Surgical History PAST SURGICAL HISTORY Procedure Laterality Date ACHILLES TENDON SURGERY HX Left 01/27/2024 CHOLECYSTECTOMY Cholecystectomy COLONOSCOPY FLX DX W/COLLJ SPEC WHEN PFRMD 05/06/2020 Colonoscopy-repeat in 10 years DANTE PAST SURGICAL HISTORY OF 09/2020 sinoplasty Family History FAMILY HISTORY Problem Relation Age of Onset Melanoma Mother Fibromyalgia Mother Hypertension Father Coronary Artery Disease Maternal Grandfather CABG x4 Heart Paternal Grandfather [place] No Known Problems Daughter No Known Problems Son Patient Allergies ALLERGIES Allergen Reactions Lisinopril (Bulk) Cough Wellbutrin [Bupropi* Other: See Comments Anxiety Zoloft [Sertraline] Other: See Comments Sexual side effects. Current Medications Current Outpatient Medications on File Prior to Visit Medication Sig potassium chloride (K-TAB) 10 mEq tablet Take 1 tablet by mouth daily with breakfast. aspirin, enteric coated (ADULT LOW DOSE ASPIRIN) 81 mg EC tablet Take 1 tablet by mouth once daily. metFORMIN (GLUCOPHAGE) 1,000 mg tablet Take 1 tablet by mouth two times a day with meals. glimepiride (AMARYL) 4 mg tablet Take 2 tablets by mouth once daily. hydroCHLOROthiazide 50 mg tablet Take 1 tablet by mouth once daily. blood sugar diagnostic (BLOOD GLUCOSE TEST) test strip Test blood sugar(s) 1 times daily. Dx: Type 2 DM - Uncontrolled E11.65 Insulin: No Lancets Test blood sugar(s) 1 times daily. Dx: Type 2 DM - Uncontrolled E11.65 Insulin: No losartan (COZAAR) 100 mg tablet Take 1 tablet by mouth once daily. amLODIPine (NORVASC) 5 mg tablet Take 1 tablet by mouth once daily. metoprolol succinate ER (TOPROL XL) 100 mg Take 1 tablet by mouth once daily. DULoxetine (CYMBALTA) 20 mg capsule Take 1 capsule by mouth once daily. meloxicam (MOBIC) 15 mg tablet Take 1 tablet by mouth daily with food. (Patient not taking: Reported on 11/16/2024) atorvastatin (LIPITOR) 10 mg tablet Take 1 tablet by mouth daily at bedtime. For cholesterol. COMPOUNDED PRESCRIPTION Take by mouth once daily. Centrum Silver multivitamin No current facility-administered medications on file prior to visit. Social History Social History Tobacco Use Smoking status: Every Day Current packs/day: 0.00 Average packs/day: 0.5 packs/day for 7.1 years (3.5 ttl pk-yrs) Types: Cigarettes Start date: 11/08/2016 Last attempt to quit: 12/03/2023 Years since quittin.9 Passive exposure: Never Smokeless tobacco: Former Types: Snuff Quit date: 07/14/2015 Vaping Use Vaping status: current everyday user Substances: Flavoring Devices: Pre-filled or refillable cartridge Substance Use Topics Alcohol use: Yes Alcohol/week: 8.0 standard drinks of alcohol Types: 8 Standard drinks or equivalent per week Comment: 8 drinks most Tuesday Drug use: Not Currently Types: Marijuana Review of Symptoms REVIEW OF SYSTEMS See HPI EXAM: BP 120/74 Pulse 78 Resp 16 SpO2 98% General Appearance: Well appearing, alert, in no acute distress, well-hydrated, well nourished.. Skin: 0.1 cm dark mole vs blood blister on left knee. Lungs: Lungs clear to auscultation. No wheezing, rhonchi, rales.. Heart: RRR without murmur, gallop, or rubs. No ectopy. Extremities: No deformities, edema, skin discoloration, clubbing or cyanosis. Good capillary refill. Peripheral Pulses: Pulses: femoral=4/4 Health Maintenance List Anxiety Screening Never done Hepatitis B Vaccine(1 of 3 - 19+ 3-dose series) Never done DTaP,Tdap,Td Vaccine(1 - Tdap) due on 02/04/2018 Pneumococcal Vaccine: 50+(2 of 2 - PCV) due on 08/21/2019 Prostate Cancer Screening Discussion due on 12/22/2020 Shingrix Vaccine(2 of 2) due on 06/03/2023 HbA1C due on 05/19/2025 Diabetic Foot Exam due on 08/15/2025 Dilated Retinal Exam due on 09/26/2025 Urine Albumin:Creatinine Ratio due on 11/16/2025 LDL Cholesterol due on 11/16/2025 Annual PCP Team Chronic Disease Visit due on 11/30/2025 BP Controlled (<130/80) due on 11/30/2025 Colorectal Cancer Screening due on 05/06/2030 Influenza Vaccine Completed Hepatitis C Screening Completed Covid-19 Vaccine Completed HIV Screening Discontinued 1. Erectile dysfunction, unspecified erectile dysfunction type (N52.9) - Difficulty achieving full erection and decreased frequency of morning erections; no associated pain, hematuria, or penile curvature. - No signs of circulatory issues; pulses are strong. - Ordered serum testosterone and TSH levels to evaluate for potential endocrine causes. - Prescribed Sildenafil 50 mg to be taken 30-60 minutes prior to sexual intercourse; advised on potential side effects including dizziness, lightheadedness, and priapism. - Patient instructed to seek emergency care for erections lasting more than 4 hours or if experiencing chest pain. - Will reassess based on lab results; discussed potential referral to endocrinology for testosterone replacement therapy if levels are low. 2. Type 2 diabetes mellitus without complication, without long-term current use of insulin (HCC) (E11.9) - Hemoglobin A1c improved to 5.9%. - Urine fzwcfrf-hh-lbkwsdyxjx ratio elevated; patient on losartan to reduce proteinuria and protect renal function. - Continue current management; re-evaluate urine ptvmlen-be-qgqqbyjndp ratio at next follow-up. 3. Blood blister - ICD9: 919.2, ICD10: T14.8XXA Vs mole. Advised to monitor at home. If increasing in size, will refer to derm. Ike Jack MD CNOV Observed: 11/30/2024 10:00 AM Status: COMPLETED Source: [facility] Office Visit (FAMPWS) HETAL HUSAIN ([id number]) 1970 M Date Time Provider Department 11/30/24 10:00 AM IKE JACKPWS During your visit today, we recorded the following information about you: Pulse Respiration Blood pressure 78/minute 16/minute 120/74 Ike Jack MD 11/30/2024 11:09 AM Signed Chief Complaint Patient presents with: Erectile Dysfunction Recording using [employer] software for draft documentation of the visit was discussed with the patient/authorized inbound call center representative; all questions welcomed and answered. Patient/authorized inbound call center representative agreed to proceed HPI Hetal Husain is a 54 year old male who presents here today for Above Complaints. Erectile Dysfunction: - Difficulty achieving full erection, approximately 50% rigidity. - Symptoms occur consistently during sexual intercourse and morning erections. - Decreased frequency of morning erections. - Onset coincided with changes in antidepressant medication (Prozac) around May. - No improvement despite medication adjustments. - Difficulty achieving orgasm. - Denies pain during erection, hematuria, or hematospermia. - No new penile curvature or discomfort. - Denies dysuria, weak urinary stream, or nocturia. - No chest pain, syncope, or claudication. - Libido and energy levels remain normal. - Sexual activity approximately once a week. - Denies cold extremities or color changes in feet. - Denies rash in genital area. Diabetes: - Recent HbA1c improved to 5.9%. - On losartan for elevated urine cdunrud-zj-bhfazxejvk ratio. Past medical history, appointments, medications, allergies reviewed. Previous Medical History PAST MEDICAL HISTORY Diagnosis Date Achilles tendinitis of left lower extremity Achilles tendinitis, left leg Current moderate episode of major depressive disorder without prior episode (HCC) Diabetes mellitus type II (HCC) Elevated LFTs Essential hypertension Hepatic steatosis Hyperplastic colonic polyp Hypertension Mixed hyperlipidemia Obesity (BMI 30-39.9) Prediabetes Sleep apnea not using CPAP Tobacco use disorder Previous Surgical History PAST SURGICAL HISTORY Procedure Laterality Date ACHILLES TENDON SURGERY HX Left 01/27/2024 CHOLECYSTECTOMY Cholecystectomy COLONOSCOPY FLX DX W/COLLJ SPEC WHEN PFRMD 05/06/2020 Colonoscopy-repeat in 10 years DANTE PAST SURGICAL HISTORY OF 09/2020 sinoplasty Family History FAMILY HISTORY Problem Relation Age of Onset Melanoma Mother Fibromyalgia Mother Hypertension Father Coronary Artery Disease Maternal Grandfather CABG x4 Heart Paternal Grandfather [place] No Known Problems Daughter No Known Problems Son Patient Allergies ALLERGIES Allergen Reactions Lisinopril (Bulk) Cough Wellbutrin [Bupropi* Other: See Comments Anxiety Zoloft [Sertraline] Other: See Comments Sexual side effects. Current Medications Current Outpatient Medications on File Prior to Visit Medication Sig potassium chloride (K-TAB) 10 mEq tablet Take 1 tablet by mouth daily with breakfast. aspirin, enteric coated (ADULT LOW DOSE ASPIRIN) 81 mg EC tablet Take 1 tablet by mouth once daily. metFORMIN (GLUCOPHAGE) 1,000 mg tablet Take 1 tablet by mouth two times a day with meals. glimepiride (AMARYL) 4 mg tablet Take 2 tablets by mouth once daily. hydroCHLOROthiazide 50 mg tablet Take 1 tablet by mouth once daily. blood sugar diagnostic (BLOOD GLUCOSE TEST) test strip Test blood sugar(s) 1 times daily. Dx: Type 2 DM - Uncontrolled E11.65 Insulin: No Lancets Test blood sugar(s) 1 times daily. Dx: Type 2 DM - Uncontrolled E11.65 Insulin: No losartan (COZAAR) 100 mg tablet Take 1 tablet by mouth once daily. amLODIPine (NORVASC) 5 mg tablet Take 1 tablet by mouth once daily. metoprolol succinate ER (TOPROL XL) 100 mg Take 1 tablet by mouth once daily. DULoxetine (CYMBALTA) 20 mg capsule Take 1 capsule by mouth once daily. meloxicam (MOBIC) 15 mg tablet Take 1 tablet by mouth daily with food. (Patient not taking: Reported on 11/16/2024) atorvastatin (LIPITOR) 10 mg tablet Take 1 tablet by mouth daily at bedtime. For cholesterol. COMPOUNDED PRESCRIPTION Take by mouth once daily. Centrum Silver multivitamin No current facility-administered medications on file prior to visit. Social History Social History Tobacco Use Smoking status: Every Day Current packs/day: 0.00 Average packs/day: 0.5 packs/day for 7.1 years (3.5 ttl pk-yrs) Types: Cigarettes Start date: 11/08/2016 Last attempt to quit: 12/03/2023 Years since quittin.9 Passive exposure: Never Smokeless tobacco: Former Types: Snuff Quit date: 07/14/2015 Vaping Use Vaping status: current everyday user Substances: Flavoring Devices: Pre-filled or refillable cartridge Substance Use Topics Alcohol use: Yes Alcohol/week: 8.0 standard drinks of alcohol Types: 8 Standard drinks or equivalent per week Comment: 8 drinks most Tuesday Drug use: Not Currently Types: Marijuana Review of Symptoms REVIEW OF SYSTEMS See HPI EXAM: BP 120/74 Pulse 78 Resp 16 SpO2 98% General Appearance: Well appearing, alert, in no acute distress, well-hydrated, well nourished.. Skin: 0.1 cm dark mole vs blood blister on left knee. Lungs: Lungs clear to auscultation. No wheezing, rhonchi, rales.. Heart: RRR without murmur, gallop, or rubs. No ectopy. Extremities: No deformities, edema, skin discoloration, clubbing or cyanosis. Good capillary refill. Peripheral Pulses: Pulses: femoral=4/4 Health Maintenance List Anxiety Screening Never done Hepatitis B Vaccine(1 of 3 - 19+ 3-dose series) Never done DTaP,Tdap,Td Vaccine(1 - Tdap) due on 02/04/2018 Pneumococcal Vaccine: 50+(2 of 2 - PCV) due on 08/21/2019 Prostate Cancer Screening Discussion due on 12/22/2020 Shingrix Vaccine(2 of 2) due on 06/03/2023 HbA1C due on 05/19/2025 Diabetic Foot Exam due on 08/15/2025 Dilated Retinal Exam due on 09/26/2025 Urine Albumin:Creatinine Ratio due on 11/16/2025 LDL Cholesterol due on 11/16/2025 Annual PCP Team Chronic Disease Visit due on 11/30/2025 BP Controlled (<130/80) due on 11/30/2025 Colorectal Cancer Screening due on 05/06/2030 Influenza Vaccine Completed Hepatitis C Screening Completed Covid-19 Vaccine Completed HIV Screening Discontinued 1. Erectile dysfunction, unspecified erectile dysfunction type (N52.9) - Difficulty achieving full erection and decreased frequency of morning erections; no associated pain, hematuria, or penile curvature. - No signs of circulatory issues; pulses are strong. - Ordered serum testosterone and TSH levels to evaluate for potential endocrine causes. - Prescribed Sildenafil 50 mg to be taken 30-60 minutes prior to sexual intercourse; advised on potential side effects including dizziness, lightheadedness, and priapism. - Patient instructed to seek emergency care for erections lasting more than 4 hours or if experiencing chest pain. - Will reassess based on lab results; discussed potential referral to endocrinology for testosterone replacement therapy if levels are low. 2. Type 2 diabetes mellitus without complication, without long-term current use of insulin (HCC) (E11.9) - Hemoglobin A1c improved to 5.9%. - Urine ifbgrmv-jy-kekqvagxox ratio elevated; patient on losartan to reduce proteinuria and protect renal function. - Continue current management; re-evaluate urine tdbiwpl-rv-anvjlisozh ratio at next follow-up. 3. Blood blister - ICD9: 919.2, ICD10: T14.8XXA Vs mole. Advised to monitor at home. If increasing in size, will refer to derm. ChristophMD Guero Griffiths Christopher B, MD 11/30/2024 10:33 AM Addendum - A prescription for Viagra 50 mg (12 tablets) has been sent to your [facility] pharmacy. Take one tablet 30-60 minutes before sexual activity. You may cut the tablet in half or increase the dose later if needed. - Monitor for side effects: if you experience dizziness, lightheadedness, or chest pain, seek medical care (go to the ER for chest pain). If an erection lasts longer than 4 hours, go to the ER. - Stop by the lab before you leave to have your testosterone and thyroid levels checked; you do not need to fast. - Watch the small dark spot on your left knee; if it does not go away, grows, or changes, please contact the clinic or schedule a dermatology evaluation. - We will call you with your test results and any further instructions. Allergies As of Date: 11/30/2024 Noted Allergy Reaction LISINOPRIL (BULK) 07/14/2017 3 - Cough WELLBUTRIN (BUPROPION) 09/06/2023 14 - Other: See Comments Comments: Anxiety ZOLOFT (SERTRALINE) 08/11/2020 14 - Other: See Comments Comments: Sexual side effects. Date Reviewed: 11/16/2024 Reviewed by: Mel Albarran MA - Fully Assessed Reason for Visit: Erectile Dysfunction [339] Primary Visit Diagnosis:Erectile dysfunction, unspecified erectile dysfunction type [N52.9] Other Visit Diagnoses:Type 2 diabetes mellitus without complication, without long-term current use of insulin (HCC) [E11.9] Blood blister [T14.8XXA] Order(s):TESTOSTERONE, TOTAL BY IMMUNOASSAY (ADULT MALES, OR INDIVIDUALS ON TESTOSTERONE THERAPY) [SQTESTO] Order #: [id number] FUTURE THYROID STIMULATING HORMONE [SQTSH] Order #: [id number] FUTURE sildenafil (VIAGRA) 50 mg tabletTake 1 tablet by mouth once daily as needed (30-60 minutes prior to sexual intercourse). Take 30-60 minutes before sexual activity.Disp: 12 tabletRfl: 1 Prescriptions as of 11/30/2024 - sildenafil (VIAGRA) 50 mg tablet Take 1 tablet by mouth once daily as needed (30-60 minutes prior to sexual intercourse). Take 30-60 minutes before sexual activity. - potassium chloride (K-TAB) 10 mEq tablet Take 1 tablet by mouth daily with breakfast. - aspirin, enteric coated (ADULT LOW DOSE ASPIRIN) 81 mg EC tablet Take 1 tablet by mouth once daily. - metFORMIN (GLUCOPHAGE) 1,000 mg tablet Take 1 tablet by mouth two times a day with meals. - glimepiride (AMARYL) 4 mg tablet Take 2 tablets by mouth once daily. - hydroCHLOROthiazide 50 mg tablet Take 1 tablet by mouth once daily. - blood sugar diagnostic (BLOOD GLUCOSE TEST) test strip Test blood sugar(s) 1 times daily. Dx: Type 2 DM - Uncontrolled E11.65 Insulin: No - Lancets Test blood sugar(s) 1 times daily. Dx: Type 2 DM - Uncontrolled E11.65 Insulin: No - losartan (COZAAR) 100 mg tablet Take 1 tablet by mouth once daily. - amLODIPine (NORVASC) 5 mg tablet Take 1 tablet by mouth once daily. - metoprolol succinate ER (TOPROL XL) 100 mg Take 1 tablet by mouth once daily. - DULoxetine (CYMBALTA) 20 mg capsule Take 1 capsule by mouth once daily. - meloxicam (MOBIC) 15 mg tablet Take 1 tablet by mouth daily with food. - atorvastatin (LIPITOR) 10 mg tablet Take 1 tablet by mouth daily at bedtime. For cholesterol. - COMPOUNDED PRESCRIPTION Take by mouth once daily. 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 Take one tablet 30-60 minutes before sexual activity. You may cut the tablet in half or increase the dose later if needed. - Monitor for side effects: if you experience dizziness, lightheadedness, or chest pain, seek medical care (go to the ER for chest pain). If an erection lasts longer than 4 hours, go to the ER. - Stop by the lab before you leave to have your testosterone and thyroid levels checked; you do not need to fast. - Watch the small dark spot on your left knee; if it does not go away, grows, or changes, please contact the clinic or schedule a dermatology evaluation. - We will call you with your test results and any further instructions. Prescriptions ordered this encounter Disp Refills Start End SILDENAFIL 50 MG TABLET 12 t* 1 11/30/2024 11/30/2024 Route: ORAL Sig: Take 1 tablet by mouth once daily as needed (30-60 minutes prior to sexual intercourse). Take 30-60 minutes before sexual activity. SILDENAFIL 50 MG TABLET 12 t* 1 11/30/2024 Route: ORAL Sig: Take 1 tablet by mouth once daily as needed (30-60 minutes prior to sexual intercourse). Take 30-60 minutes before sexual activity. Medications Discontinued During This Encounter Prescriptions - sildenafil (VIAGRA) 50 mg tablet (Discontinued) Take 1 tablet by mouth once daily as needed (30-60 minutes prior to sexual intercourse). Take 30-60 minutes before sexual activity. Encounter Status:Closed by IKE JACK on 11/30/24 PROGRESS Observed: 11/16/2024 9:40 AM Status: COMPLETED Source: [facility] ID: [id number] Author: YANICK LAY RT([place]) Service: Radiology Author Type: Technologist Type: Progress Notes Filed: 11/16/2024 09:35 Note Text: Radiology Service Progress Note PATIENT NAME: Hetal Husain DATE OF SERVICE: November 16, 2024 TIME: 9:30 AM PATIENT IDENTITY VERIFICATION COMPLETED USING TWO (2) IDENTIFIERS: Name and Date of confirmed by patient verbally. FALL SCREENING: Has the patient had 2 falls in the last year or 1 fall with injury or currently using an Ambulatory Assistive Device (Walker, Cane, Wheelchair, Crutches, etc.)? No PATIENT GENDER DATA: Assigned male at PATIENT RELEVANT IMPLANT DATA REVIEWED: Not Applicable PATIENT PRESENTS WITH AN IMPLANTABLE OR ATTACHED COMMERCIAL PROPERTY ADMINISTRATOR: No RADIOLOGY DEPARTMENT: General X-ray: Exam(s) Completed: Chest X-Ray PERIPHERAL IV DATA: Not applicable SIGNED BY: Yanick Lay, RT(R) November 16, 2024 9:30 AM XR CHEST 2V FRONTAL/LAT Observed: 2024 9:35 AM Status: F Source: [facility] * * *Final Report* * * DATE OF EXAM: Nov 16 2024 9:35AM WOX [id number] - XR CHEST 2V FRONTAL/LAT / PROCEDURE REASON: Productive cough * * * * Physician Interpretation * * * * EXAMINATION: CHEST RADIOGRAPH (2 VIEW FRONTAL and LATERAL) CLINICAL HISTORY: Productive cough MQ: [id number]_6 EXAM DATE/TIME: 11/16/2024 9:35 AM COMPARISON: No relevant prior studies available. RESULT: Lines, tubes, and devices: None. Lungs and pleura: No consolidation. No lung mass. No pleural effusion. No pneumothorax. Large left-sided pericardial fat pad is noted. Cardiomediastinal silhouette: Normal cardiomediastinal silhouette. Bones and soft tissues: Unremarkable. IMPRESSION: No acute radiographic abnormality. Medical Lead: AMANDA Transcribe Date/Time: Nov 16 2024 9:53A Dictated by : ANGELIKA MICHEL MD This examination was interpreted and the report reviewed and electronically signed by: ANGELIKA MICHEL MD on Nov 16 2024 9:54AM EST [id number] COMP METAB 2000 PNL SERPL Collected: 9:29 AM Status: F Source: [facility] Order Comment: Specimen Type : BLOOD SPECIMEN Ordering Facility: [facility] Address: [address] [place] [address] TYPE CODE TESTS RESULT OUT OF RANGE REFERENCE UNITS LAB 2885-2(LOINC) Prot SerPl-mCnc 7.2 6.3-8.0 g/dL LAB 1751-7(LOINC) Albumin SerPl-mCnc 4.5 3.9-4.9 g/dL LAB 22204-1(LOINC) Calcium SerPl-mCnc 9.6 8.5-10.2 mg/dL LAB 1975-2(LOINC) Bilirub SerPl-mCnc 0.4 0.2-1.3 mg/dL LAB 6768-6(LOINC) ALP SerPl-cCnc 56 38-113 U/L LAB 1920-8(LOINC) AST SerPl-cCnc 26 14-40 U/L LAB 1742-6(LOINC) ALT SerPl-cCnc 40 10-54 U/L LAB 2345-7(LOINC) Glucose SerPl-mCnc 79 74-99 mg/dL Result Comment: The [place] Diabetes Association (ADA) provides guidance for cutoff values for fasting glucose and random glucose. The ADA defines fasting as no caloric intake for at least 8 hours. Fasting plasma glucose results between 100 to 125 mg/dL indicate increased risk for diabetes (prediabetes). Fasting plasma glucose results greater than or equal to 126 mg/dL meet the criteria for diagnosis of diabetes. In the absence of unequivocal hyperglycemia, results should be confirmed by repeat testing. In a patient with classic symptoms of hyperglycemia or hyperglycemic crisis, random plasma glucose results greater than or equal to 200 mg/dL meet the criteria for diagnosis of diabetes. Reference: Standards of Medical Care in Diabetes 2016, [place] Diabetes Association. Diabetes Care. 2016.39(Suppl 1). LAB 3094-0(LOINC) BUN SerPl-mCnc 21 9-24 mg/ dL LAB 2160-0(LOINC) Creat SerPl-mCnc 0.69 Low 0.73-1.22 mg/dL LAB 2951-2(LOINC) Sodium SerPl-sCnc 141 136-144 mmol/L LAB 2823-3(LOINC) Potassium SerPl-sCnc 3.7 3.7-5.1 mmol/L LAB 2075-0(LOINC) Chloride SerPl-sCnc 103 98-107 mmol/L LAB 2028-9(LOINC) CO2 SerPl-sCnc 28 22-30 mmo l/L LAB 49761-2(LOINC) Anion Gap SerPl-sCnc 10 8-15 mmol/L LAB 67103-3(LOINC) Creatinine + eGFR Pnl SerPlBld 109 >=60 mL/min/1 .73m??? Result Comment: Estimated Gl omerular Filtration Rate (eGFR) is calculated using the 2021 CKD-EPI creatinine equation. This equation utilizes serum creatinine, sex, and age as parameters. The creatinine assay has traceable calibration to isotope dilution-mass spectrometry. Refer to KDIGO guidelines for clinical interpretation. In patients with unstable renal function, e.g. those with acute kidney injury, the eGFR may not accurately reflect actual GFR. Performed By: #### 58620-3, LIPNF #### [facility] CLIA [id number] [address] [place], [place] [address] [place] [address] [place] LIPID PANEL, NONFASTING Collected: 11/16/2024 9:29 AM Status: F Source: [facility] Order Comment: Specimen Type : BLOOD SPECIMEN Ordering Facility: [facility] Address: [address] [place] [address] TYPE CODE TESTS RESULT OUT OF RANGE REFERENCE UNITS LAB CHOLNF TOTAL CHOLESTEROL NF 130 <200 mg/dL Result Comment: <200 mg/dL, Desirable 200-239 mg/dL, Borderline high >239 mg/dL, High LAB TRIGNF TRIGLYCERIDES, NF 130 <150 mg/dL Result Comment: <150 mg/dL, Normal 150-199 mg/dL, Borderline high 200-499 mg/dL, High >499 mg/dL, Very high LAB HDLNF HDL CHOLESTEROL, NF 38 Low >39 mg/dL Result Comment: 40-59 mg/dL, Acceptable >59 mg/dL, High: Negative risk factor for coronary heart disease <40 mg/dL, Low: Positive risk factor for coronary heart disease LAB LDLNF LDL CHOLESTEROL CALCULATED, NF 69 <100 mg/dL Result Comment: <100 mg/dL, Optimal 100-129 mg/dL, Near optimal/above optimal 130-159 mg/dL, Borderline high 160-189 mg/dL, High >189 mg/dL, Very high Secondary prevention optimal LDL Cholesterol levels are recommended to be <70 mg/dL LDL cholesterol is calculated using the Burnette-NIH equation. LAB NOHDLN NON HDL CHOL, NF 92 <130 mg/dL Result Comment: <130 mg/dL, Optimal 130-159 mg/dL, Near optimal/above optimal 160-189 mg/dL, Borderline high 190-219 mg/dL, High >219 mg/dL, Very high Secondary prevention optimal non HDL Cholesterol levels are recommended to be <100 mg/dL LAB VLDLNF VLDL CHOLESTEROL, NF 19 <30 mg/dL LAB TCHDLN T CHOL/HDL RATIO NF 3.42 <5.10 mg/dL LAB LDLHDN LDL/HDL RATIO, NF 1.82 <2.54 mg/dL Result Comment: Reference: 1. National Cholesterol Education Program ATP III Guideline At-A-Glance Quick Desk Reference: National Heart, Lung, and Blood [place]. National Institutes of Health. 2001: NIH Publication No. 01-3305. 2. An International Atherosclerosis Society position paper: global recommendations for the management of dyslipidemia: executive summary, Atherosclerosis. 2014: 232(2):410-413. Performed By: #### 65621-3, LIPNF #### [facility] CLIA [id number] [address] [place] [address] [place] ALBUMIN/CREATININE RATIO, URINE Collect ed: 11/16/2024 9:27 AM Status: F Source: [facility] Comment: Specimen Type : URINE SPECIMEN Ordering Facility: [facility] Address: [address] [place] [address] TYPE CODE TESTS RESULT OUT OF RANGE REFERENCE UNITS LAB 2161-8(LOINC) Creat Ur-mCnc 56.4 20.0-300.0 m g/dL LAB 86178-1(LOINC ) Microalbumin Ur-mCnc 104.9 mg/L LAB 9318-7(LOINC) Albumin/Creat Ur 186 High <30 mg/g Result Comment: Adult Male a nd Female Nephrotic Criteria: <30 mg/g is considered normal to mildly increased 30-300 mg/g is considered moderately increased >300 mg/g is considered severely increased KDIGO. (2013). KDIGO 2012 Clinical Practice Guideline for the Evaluation and Management of Chronic Kidney Disease. Official Journal of the International Society of Nephrology, 3(1), 1-150. Performed By: #### UACR #### [facility] CLIA [id number] [address] [place] [address] [place] DEPRECATED HGB A1C BLD Collected: 11/16 9:26 AM Status: F Source: [facility] Comment: Specimen Type : BLOOD SPECIMEN Ordering Facility: [facility] Address: [address] [place] [address] TYPE CODE TESTS RESULT OUT OF RANGE REFERENCE UNITS LAB 4548-4(LOINC) HbA1c MFr Bld 5.9 High 4.3-5.6 % Result Comment: [place] bet[place] Association guidelines indicate that patients with HgbA1c in the range 5.7-6.4% are at increased risk for development of diabetes, and intervention by lifestyle modification may be beneficial. HgbA1c greater or equal to 6.5% is considered diagnostic of diabetes. LAB 32383-4(LOINC) Est. average glucose Bld gHb Est-mCnc 123 mg/dL Result Comment: eAG: (Estima jasvir average glucose) is a calculated value from HgbA1c and is inbound call center representative of the average blood glucose level in the last 2-3 month period. Performed By: #### 54189-0 # ### [facility] CLIA [id number] [address] [place] [address] [place] PROGRESS Observed: 11/16/2024 9:05 AM Status: COMPLETED Source: [facility] HNO ID: [id number] Author: IKE JACK MD Service: ? Author Type: Physician Type: Progress Notes Filed: 11/16/2024 09:29 Note Text: Chief Complaint Patient presents with: F/U 3 Month HPI Hetal Husain is a 54 year old male who presents here today for Above Complaints.. DIABETES MELLITUS: Mr. Husain was last seen 4 months ago. Since our last visit he denies excessive thirst or increased frequency of urination, numbness, tingling or pain in extremities, new or unusual visual symptoms. Admits to rare hypoglycemic episodes into the 60's with shaking. Follows a diabetic diet most of the time. He is compliant with medication(s) and is tolerating med(s) without any side effects. He reports checking his glucose on a once a day schedule with sugars in the fasting <130 range. Patient's last HgA1C was Hemoglobin A1C (%) Date Value 08/03/2024 10.1 10/18/2023 5.7 04/17/2021 6.1 08/27/2020 6.1 ) Last Ophthalmology exam was within the past 12 months Last Podiatry exam was within the past 12 months Past medical history, appointments, medications, allergies reviewed. Previous Medical History PAST MEDICAL HISTORY Diagnosis Date Achilles tendinitis of left lower extremity Achilles tendinitis, left leg Current moderate episode of major depressive disorder without prior episode (HCC) Diabetes mellitus type II (HCC) Elevated LFTs Essential hypertension Hepatic steatosis Hyperplastic colonic polyp Hypertension Mixed hyperlipidemia Obesity (BMI 30-39.9) Prediabetes Sleep apnea not using CPAP Tobacco use disorder Previous Surgical History PAST SURGICAL HISTORY Procedure Laterality Date ACHILLES TENDON SURGERY HX Left 01/27/2024 CHOLECYSTECTOMY Cholecystectomy COLONOSCOPY FLX DX W/COLLJ SPEC WHEN PFRMD 05/06/2020 Colonoscopy-repeat in 10 years LASIK PAST SURGICAL HISTORY OF 09/2020 sinoplasty Family History FAMILY HISTORY Problem Relation Age of Onset Melanoma Mother Fibromyalgia Mother Hypertension Father Coronary Artery Disease Maternal Grandfather CABG x4 Heart Paternal Grandfather [place] No Known Problems Daughter No Known Problems Son Patient Allergies ALLERGIES Allergen Reactions Lisinopril (Bulk) Cough Wellbutrin [Bupropi* Other: See Comments Anxiety Zoloft [Sertraline] Other: See Comments Sexual side effects. Current Medications Current Outpatient Medications on File Prior to Visit Medication Sig metFORMIN (GLUCOPHAGE) 1,000 mg tablet Take 1 tablet by mouth two times a day with meals. glimepiride (AMARYL) 4 mg tablet Take 2 tablets by mouth once daily. hydroCHLOROthiazide 50 mg tablet Take 1 tablet by mouth once daily. blood sugar diagnostic (BLOOD GLUCOSE TEST) test strip Test blood sugar(s) 1 times daily. Dx: Type 2 DM - Uncontrolled E11.65 Insulin: No Lancets Test blood sugar(s) 1 times daily. Dx: Type 2 DM - Uncontrolled E11.65 Insulin: No losartan (COZAAR) 100 mg tablet Take 1 tablet by mouth once daily. potassium chloride (K-TAB) 10 mEq tablet Take 1 tablet by mouth daily with breakfast. amLODIPine (NORVASC) 5 mg tablet Take 1 tablet by mouth once daily. metoprolol succinate ER (TOPROL XL) 100 mg Take 1 tablet by mouth once daily. DULoxetine (CYMBALTA) 20 mg capsule Take 1 capsule by mouth once daily. atorvastatin (LIPITOR) 10 mg tablet Take 1 tablet by mouth daily at bedtime. For cholesterol. COMPOUNDED PRESCRIPTION Take by mouth once daily. Centrum Silver multivitamin meloxicam (MOBIC) 15 mg tablet Take 1 tablet by mouth daily with food. (Patient not taking: Reported on 11/16/2024) No current facility-administered medications on file prior to visit. Social History Social History Tobacco Use Smoking status: Every Day Current packs/day: 0.00 Average packs/day: 0.5 packs/day for 7.1 years (3.5 ttl pk-yrs) Types: Cigarettes Start date: 11/08/2016 Last attempt to quit: 12/03/2023 Years since quittin.9 Passive exposure: Never Smokeless tobacco: Former Types: Snuff Quit date: 07/14/2015 Vaping Use Vaping status: current everyday user Substances: Flavoring Devices: Pre-filled or refillable cartridge Substance Use Topics Alcohol use: Yes Alcohol/week: 8.0 standard drinks of alcohol Types: 8 Standard drinks or equivalent per week Comment: 8 drinks most Tuesday Drug use: Not Currently Types: Marijuana Review of Symptoms REVIEW OF SYSTEMS GENERAL: No weight loss, malaise or fevers RESPIRATORY: Admits to productive cough which started in October with URI symptoms. All other symptoms are cleared up. Denies SOB, wheezing, chest pain, chest congestion. CARDIOVASCULAR: Negative for chest pain, leg swelling, hypertension, CHF or palpitations GI: No nausea, vomiting, or diarrhea SKIN: Negative for lesions, rash, and itching EXAM: BP 128/70 Pulse 72 Resp 16 Wt 118.8 kg (262 lb) SpO2 100% BMI 36.54 kg/m? General Appearance: Well appearing, alert, in no acute distress, well-hydrated, well nourished.. Skin: Skin color, texture, turgor normal, no suspicious rashes or lesions. Lungs: Lungs clear to auscultation. No wheezing, rhonchi, rales.. Heart: RRR without murmur, gallop, or rubs. No ectopy. Abdomen: Normal abdominal exam, Abdomen soft, non-tender. Bowel sounds normal. No masses, organomegaly. Extremities: No deformities, edema, skin discoloration, clubbing or cyanosis. Good capillary refill. . Health Maintenance List Urine Albumin:Creatinine Ratio Never done Anxiety Screening Never done Hepatitis B Vaccine(1 of 3 - 19+ 3-dose series) Never done DTaP,Tdap,Td Vaccine(1 - Tdap) due on 02/04/2018 Pneumococcal Vaccine: 50+(2 of 2 - PCV) due on 08/21/2019 Prostate Cancer Screening Discussion due on 12/22/2020 Shingrix Vaccine(2 of 2) due on 06/03/2023 LDL Cholesterol due on 10/17/2024 HbA1C due on 11/01/2024 Diabetic Foot Exam due on 08/15/2025 Dilated Retinal Exam due on 09/26/2025 Annual PCP Team Chronic Disease Visit due on 11/16/2025 BP Controlled (<130/80) due on 11/16/2025 Colorectal Cancer Screening due on 05/06/2030 Influenza Vaccine Completed Hepatitis C Screening Completed Covid-19 Vaccine Completed HIV Screening Discontinued Data reviewed Latest Ref Rng 08/03/2024 WBC 3.70 - 11.00 k/uL 7.12 RBC 4.20 - 6.00 m/uL 4.56 Hemoglobin 13.0 - 17.0 g/dL 14.5 Hematocrit 39.0 - 51.0 % 41.9 MCV 80.0 - 100.0 fL 91.9 MCH 26.0 - 34.0 pg 31.8 MCHC 30.5 - 36.0 g/dL 34.6 RDW-CV 11.5 - 15.0 % 12.3 Platelet Count 150 - 400 k/uL 230 MPV 9.0 - 12.7 fL 9.7 Neut% % 51.7 Abs Neut (ANC) 1.45 - 7.50 k/uL 3.68 Lymph% % 37.6 Abs Lymph 1.00 - 4.00 k/uL 2.68 Mcnairy% % 6.7 Abs Mcnairy <0.87 k/uL 0.48 Eosin% % 2.7 Abs Eosin <0.46 k/uL 0.19 Baso% % 0.7 Abs Baso <0.11 k/uL 0.05 Immature Gran % % 0.6 IMMATURE GRANS (ABS) <0.10 k/uL 0.04 NRBC /100 WBC 0.0 Absolute nRBC <0.01 k/uL <0.01 DTYPE Auto Protein, Total 6.3 - 8.0 g/dL 7.2 Albumin 3.9 - 4.9 g/dL 4.7 Calcium 8.5 - 10.2 mg/dL 10.5 (H) Bilirubin, Total 0.2 - 1.3 mg/dL 0.5 Alkaline Phosphatase 38 - 113 U/L 108 AST 14 - 40 U/L 30 ALT 10 - 54 U/L 74 (H) Glucose 74 - 99 mg/dL 436 (H) BUN 9 - 24 mg/dL 22 Creatinine 0.73 - 1.22 mg/dL 0.66 (L) Sodium 136 - 144 mmol/L 136 Potassium 3.7 - 5.1 mmol/L 4.8 Chloride 98 - 107 mmol/L 98 CO2 22 - 30 mmol/L 30 Anion Gap 8 - 15 mmol/L 8 eGFR >=60 mL/min/1.73m? 111 Aldosterone 0.0 - <35.4 ng/dL 15.2 Direct Renin 3.6 - 81.6 pg/mL 28.3 Aldosterone/Renin Ratio <3.8 0.5 Patient Upright or Supine Upright Hemoglobin A1C 4.3 - 5.6 % 10.1 (H) Estimated Average Glucose mg/dL 243 Legend: (H) High (L) Low ASSESSMENT/PLAN: 1. Diabetes mellitus type II (HCC) - ICD9: 250.00, ICD10: E11.9 (primary diagnosis) - Improving control - Continue current medications - Statin prescribed - atorvastatin - Blood glucose monitoring on a once daily schedule - Counseled on healthy diet and regular exercise - Discussed need for and benefit of weight loss. BMI 36.54 kg/(m2) - Discussed diabetic education issues of diabetes complications and monitoring required, hypoglycemic/hyperglycemic symptoms, and medication-specific side effects and monitoring - Follow up in 3 months, sooner should any other issues arise. - COMPREHENSIVE METABOLIC PANEL - ALBUMIN/CREATININE RATIO, URINE - HEMOGLOBIN A1C - LIPID PANEL, NONFASTING 2. Essential hypertension - ICD9: 401.9, ICD10: I10 - Controlled - Continue current medications - Recommend home blood pressure monitoring, to bring results to next visit - Encouraged sodium restriction, DASH or Mediterranean diet - Recommend regular aerobic exercise 3. Productive cough - ICD9: 786.2, ICD10: R05.8 Patient with cough for about 3 weeks. Obtain CXR since he is higher risk for PNA. Will call with results. Discussed OTC cough and cold rx PRN. - XR CHEST 2V FRONTAL/LAT Ike Jack MD CNOV Observed: 11/16/2024 8:40 AM Status: COMPLETED Source: [facility] HETAL HUSAIN ([id number]) 1970 M Date Time Provider Department 11/16/24 8:40 AM IKE JACK During your visit today, we recorded the following information about you: Pulse Respiration Blood pressure Weight 72/minute 16/minute 128/70 118.8 kg Ike Jack MD 11/16/2024 9:29 AM Signed Chief Complaint Patient presents with: F/U 3 Month HPI Hetal Husain is a 54 year old male who presents here today for Above Complaints.. DIABETES MELLITUS: Mr. Husain was last seen 4 months ago. Since our last visit he denies excessive thirst or increased frequency of urination, numbness, tingling or pain in extremities, new or unusual visual symptoms. Admits to rare hypoglycemic episodes into the 60's with shaking. Follows a diabetic diet most of the time. He is compliant with medication(s) and is tolerating med(s) without any side effects. He reports checking his glucose on a once a day schedule with sugars in the fasting <130 range. Patient's last HgA1C was Hemoglobin A1C (%) Date Value 08/03/2024 10.1 10/18/2023 5.7 04/17/2021 6.1 08/27/2020 6.1 ) Last Ophthalmology exam was within the past 12 months Last Podiatry exam was within the past 12 months Past medical history, appointments, medications, allergies reviewed. Previous Medical History PAST MEDICAL HISTORY Diagnosis Date Achilles tendinitis of left lower extremity Achilles tendinitis, left leg Current moderate episode of major depressive disorder without prior episode (HCC) Diabetes mellitus type II (HCC) Elevated LFTs Essential hypertension Hepatic steatosis Hyperplastic colonic polyp Hypertension Mixed hyperlipidemia Obesity (BMI 30-39.9) Prediabetes Sleep apnea not using CPAP Tobacco use disorder Previous Surgical History PAST SURGICAL HISTORY Procedure Laterality Date ACHILLES TENDON SURGERY HX Left 01/27/2024 CHOLECYSTECTOMY Cholecystectomy COLONOSCOPY FLX DX W/COLLJ SPEC WHEN PFRMD 05/06/2020 Colonoscopy-repeat in 10 years DANTE PAST SURGICAL HISTORY OF 09/2020 sinoplasty Family History FAMILY HISTORY Problem Relation Age of Onset Melanoma Mother Fibromyalgia Mother Hypertension Father Coronary Artery Disease Maternal Grandfather CABG x4 Heart Paternal Grandfather [place] No Known Problems Daughter No Known Problems Son Patient Allergies ALLERGIES Allergen Reactions Lisinopril (Bulk) Cough Wellbutrin [Bupropi* Other: See Comments Anxiety Zoloft [Sertraline] Other: See Comments Sexual side effects. Current Medications Current Outpatient Medications on File Prior to Visit Medication Sig metFORMIN (GLUCOPHAGE) 1,000 mg tablet Take 1 tablet by mouth two times a day with meals. glimepiride (AMARYL) 4 mg tablet Take 2 tablets by mouth once daily. hydroCHLOROthiazide 50 mg tablet Take 1 tablet by mouth once daily. blood sugar diagnostic (BLOOD GLUCOSE TEST) test strip Test blood sugar(s) 1 times daily. Dx: Type 2 DM - Uncontrolled E11.65 Insulin: No Lancets Test blood sugar(s) 1 times daily. Dx: Type 2 DM - Uncontrolled E11.65 Insulin: No losartan (COZAAR) 100 mg tablet Take 1 tablet by mouth once daily. potassium chloride (K-TAB) 10 mEq tablet Take 1 tablet by mouth daily with breakfast. amLODIPine (NORVASC) 5 mg tablet Take 1 tablet by mouth once daily. metoprolol succinate ER (TOPROL XL) 100 mg Take 1 tablet by mouth once daily. DULoxetine (CYMBALTA) 20 mg capsule Take 1 capsule by mouth once daily. atorvastatin (LIPITOR) 10 mg tablet Take 1 tablet by mouth daily at bedtime. For cholesterol. COMPOUNDED PRESCRIPTION Take by mouth once daily. Centrum Silver multivitamin meloxicam (MOBIC) 15 mg tablet Take 1 tablet by mouth daily with food. (Patient not taking: Reported on 11/16/2024) No current facility-administered medications on file prior to visit. Social History Social History Tobacco Use Smoking status: Every Day Current packs/day: 0.00 Average packs/day: 0.5 packs/day for 7.1 years (3.5 ttl pk-yrs) Types: Cigarettes Start date: 11/08/2016 Last attempt to quit: 12/03/2023 Years since quittin.9 Passive exposure: Never Smokeless tobacco: Former Types: Snuff Quit date: 07/14/2015 Vaping Use Vaping status: current everyday user Substances: Flavoring Devices: Pre-filled or refillable cartridge Substance Use Topics Alcohol use: Yes Alcohol/week: 8.0 standard drinks of alcohol Types: 8 Standard drinks or equivalent per week Comment: 8 drinks most Tuesday Drug use: Not Currently Types: Marijuana Review of Symptoms REVIEW OF SYSTEMS GENERAL: No weight loss, malaise or fevers RESPIRATORY: Admits to productive cough which started in October with URI symptoms. All other symptoms are cleared up. Denies SOB, wheezing, chest pain, chest congestion. CARDIOVASCULAR: Negative for chest pain, leg swelling, hypertension, CHF or palpitations GI: No nausea, vomiting, or diarrhea SKIN: Negative for lesions, rash, and itching EXAM: BP 128/70 Pulse 72 Resp 16 Wt 118.8 kg (262 lb) SpO2 100% BMI 36.54 kg/m? General Appearance: Well appearing, alert, in no acute distress, well-hydrated, well nourished.. Skin: Skin color, texture, turgor normal, no suspicious rashes or lesions. Lungs: Lungs clear to auscultation. No wheezing, rhonchi, rales.. Heart: RRR without murmur, gallop, or rubs. No ectopy. Abdomen: Normal abdominal exam, Abdomen soft, non-tender. Bowel sounds normal. No masses, organomegaly. Extremities: No deformities, edema, skin discoloration, clubbing or cyanosis. Good capillary refill. . Health Maintenance List Urine Albumin:Creatinine Ratio Never done Anxiety Screening Never done Hepatitis B Vaccine(1 of 3 - 19+ 3-dose series) Never done DTaP,Tdap,Td Vaccine(1 - Tdap) due on 02/04/2018 Pneumococcal Vaccine: 50+(2 of 2 - PCV) due on 08/21/2019 Prostate Cancer Screening Discussion due on 12/22/2020 Shingrix Vaccine(2 of 2) due on 06/03/2023 LDL Cholesterol due on 10/17/2024 HbA1C due on 11/01/2024 Diabetic Foot Exam due on 08/15/2025 Dilated Retinal Exam due on 09/26/2025 Annual PCP Team Chronic Disease Visit due on 11/16/2025 BP Controlled (<130/80) due on 11/16/2025 Colorectal Cancer Screening due on 05/06/2030 Influenza Vaccine Completed Hepatitis C Screening Completed Covid-19 Vaccine Completed HIV Screening Discontinued Data reviewed Latest Ref Rng 08/03/2024 WBC 3.70 - 11.00 k/uL 7.12 RBC 4.20 - 6.00 m/uL 4.56 Hemoglobin 13.0 - 17.0 g/dL 14.5 Hematocrit 39.0 - 51.0 % 41.9 MCV 80.0 - 100.0 fL 91.9 MCH 26.0 - 34.0 pg 31.8 MCHC 30.5 - 36.0 g/dL 34.6 RDW-CV 11.5 - 15.0 % 12.3 Platelet Count 150 - 400 k/uL 230 MPV 9.0 - 12.7 fL 9.7 Neut% % 51.7 Abs Neut (ANC) 1.45 - 7.50 k/uL 3.68 Lymph% % 37.6 Abs Lymph 1.00 - 4.00 k/uL 2.68 Mcnairy% % 6.7 Abs Mcnairy <0.87 k/uL 0.48 Eosin% % 2.7 Abs Eosin <0.46 k/uL 0.19 Baso% % 0.7 Abs Baso <0.11 k/uL 0.05 Immature Gran % % 0.6 IMMATURE GRANS (ABS) <0.10 k/uL 0.04 NRBC /100 WBC 0.0 Absolute nRBC <0.01 k/uL <0.01 DTYPE Auto Protein, Total 6.3 - 8.0 g/dL 7.2 Albumin 3.9 - 4.9 g/dL 4.7 Calcium 8.5 - 10.2 mg/dL 10.5 (H) Bilirubin, Total 0.2 - 1.3 mg/dL 0.5 Alkaline Phosphatase 38 - 113 U/L 108 AST 14 - 40 U/L 30 ALT 10 - 54 U/L 74 (H) Glucose 74 - 99 mg/dL 436 (H) BUN 9 - 24 mg/dL 22 Creatinine 0.73 - 1.22 mg/dL 0.66 (L) Sodium 136 - 144 mmol/L 136 Potassium 3.7 - 5.1 mmol/L 4.8 Chloride 98 - 107 mmol/L 98 CO2 22 - 30 mmol/L 30 Anion Gap 8 - 15 mmol/L 8 eGFR >=60 mL/min/1.73m? 111 Aldosterone 0.0 - <35.4 ng/dL 15.2 Direct Renin 3.6 - 81.6 pg/mL 28.3 Aldosterone/Renin Ratio <3.8 0.5 Patient Upright or Supine Upright Hemoglobin A1C 4.3 - 5.6 % 10.1 (H) Estimated Average Glucose mg/dL 243 Legend: (H) High (L) Low ASSESSMENT/PLAN: 1. Diabetes mellitus type II (HCC) - ICD9: 250.00, ICD10: E11.9 (primary diagnosis) - Improving control - Continue current medications - Statin prescribed - atorvastatin - Blood glucose monitoring on a once daily schedule - Counseled on healthy diet and regular exercise - Discussed need for and benefit of weight loss. BMI 36.54 kg/(m2) - Discussed diabetic education issues of diabetes complications and monitoring required, hypoglycemic/hyperglycemic symptoms, and medication-specific side effects and monitoring - Follow up in 3 months, sooner should any other issues arise. - COMPREHENSIVE METABOLIC PANEL - ALBUMIN/CREATININE RATIO, URINE - HEMOGLOBIN A1C - LIPID PANEL, NONFASTING 2. Essential hypertension - ICD9: 401.9, ICD10: I10 - Controlled - Continue current medications - Recommend home blood pressure monitoring, to bring results to next visit - Encouraged sodium restriction, DASH or Mediterranean diet - Recommend regular aerobic exercise 3. Productive cough - ICD9: 786.2, ICD10: R05.8 Patient with cough for about 3 weeks. Obtain CXR since he is higher risk for PNA. Will call with results. Discussed OTC cough and cold rx PRN. - XR CHEST 2V FRONTAL/LAT Ike Jack MD Allergies As of Date: 11/16/2024 Noted Allergy Reaction LISINOPRIL (BULK) 07/14/2017 3 - Cough WELLBUTRIN (BUPROPION) 09/06/2023 14 - Other: See Comments Comments: Anxiety ZOLOFT (SERTRALINE) 08/11/2020 14 - Other: See Comments Comments: Sexual side effects. Date Reviewed: 11/16/2024 Reviewed by: Mel Albarran MA - Fully Assessed Reason for Visit: F/U 3 Month [443] Primary Visit Diagnosis:Diabetes mellitus type II (HCC) [E11.9] Other Visit Diagnoses:Essential hypertension [I10] Productive cough [R05.8] Order(s):potassium chloride (K-TAB) 10 mEq tabletTake 1 tablet by mouth daily with breakfast.Disp: 90 tabletRfl: 1 COMPREHENSIVE METABOLIC PANEL [SQCMP] Order #: [id number] FUTURE ALBUMIN/CREATININE RATIO, URINE [SQUACR] Order #: [id number] FUTURE HEMOGLOBIN A1C [MBBYS5T] Order #: [id number] FUTURE LIPID PANEL, NONFASTING [SQLIPNF] Order #: [id number] FUTURE aspirin, enteric coated (ADULT LOW DOSE ASPIRIN) 81 mg EC tabletTake 1 tablet by mouth once daily.Disp: Rfl: XR CHEST 2V FRONTAL/LAT [[id number]] Order #: [id number] FUTURE Prescriptions as of 11/16/2024 - potassium chloride (K-TAB) 10 mEq tablet Take 1 tablet by mouth daily with breakfast. - aspirin, enteric coated (ADULT LOW DOSE ASPIRIN) 81 mg EC tablet Take 1 tablet by mouth once daily. - metFORMIN (GLUCOPHAGE) 1,000 mg tablet Take 1 tablet by mouth two times a day with meals. - glimepiride (AMARYL) 4 mg tablet Take 2 tablets by mouth once daily. - hydroCHLOROthiazide 50 mg tablet Take 1 tablet by mouth once daily. - blood sugar diagnostic (BLOOD GLUCOSE TEST) test strip Test blood sugar(s) 1 times daily. Dx: Type 2 DM - Uncontrolled E11.65 Insulin: No - Lancets Test blood sugar(s) 1 times daily. Dx: Type 2 DM - Uncontrolled E11.65 Insulin: No - losartan (COZAAR) 100 mg tablet Take 1 tablet by mouth once daily. - amLODIPine (NORVASC) 5 mg tablet Take 1 tablet by mouth once daily. - metoprolol succinate ER (TOPROL XL) 100 mg Take 1 tablet by mouth once daily. - DULoxetine (CYMBALTA) 20 mg capsule Take 1 capsule by mouth once daily. - meloxicam (MOBIC) 15 mg tablet Take 1 tablet by mouth daily with food. - atorvastatin (LIPITOR) 10 mg tablet Take 1 tablet by mouth daily at bedtime. For cholesterol. - COMPOUNDED PRESCRIPTION Take by mouth once daily. 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] 05/20/2017 Hypertension [I10] Obesity (BMI 30-39.9) [E66.9] Sleep apnea [G47.30] Current moderate episode of major depressive di* Vertigo [R42] 08/11/2020 Mixed hyperlipidemia [E78.2] Prediabetes [R73.03] Achilles tendinitis, left leg [M76.62] 04/08/2023 Calcaneal spur of foot, left [M77.32] 04/29/2023 Former smoker [Z87.891] 08/19/2023 Obesity, Class I, BMI 30-34.9 [E66.811] 2023 Diabetes mellitus type II (HCC) [E11.9] Prescriptions ordered this encounter Disp Refills Start End POTASSIUM CHLORIDE ER 10 MEQ TABLET,* 90 t* 1 11/16/2024 05/15/2025 Route: ORAL Sig: Take 1 tablet by mouth daily with breakfast. ASPIRIN 81 MG TABLET,DELAYED RELEASE 11/16/2024 Class: Med Update Route: ORAL Sig: Take 1 tablet by mouth once daily. Medications Discontinued During This Encounter Prescriptions - potassium chloride (K-TAB) 10 mEq tablet (Discontinued) Take 1 tablet by mouth daily with breakfast. Disposition: Return in about 3 months (around 02/16/2025) for Annual physical. Follow-up and Disposition History for Encounter Date Provider Department Center 11/16/2024 [id number]-ZRWJSTLSTEPHANIE JACK*FAMPWS Yony [facility] Encounter Status:Closed by IKE JACK on 11/16/24 PROGRESS Observed: 11/06/2024 5:08 PM Status: COMPLETED Source: [facility]NO ID: [id number] Author: THAD SRIVASTAVA, PT Service: ? Author Type: Physical Therapist Type: Progress Notes Filed: 11/06/2024 17:09 Note Text: 11/06/2024 [facility] PHYSICAL THERAPY DISCONTINUANCE OF CARE Plan of Care Period: Start of Care Date: 03/29/24 Last Visit Date: 05/24/2024 Therapy Program: The following is a summary of the interventions provided for this episode of care; Therapeutic exercise, Neuromuscular re-education, and Manual therapy Assessment: The following is the goal status: Goals updated 05/11/2024 Goals for Episode of Care: established 03/29/24 Morgan in home exercise program. - met Patient will decrease pain rating by 2 points to meet minimal clinical important difference for numeric pain rating scale. - not met Perform stairs without pain. - not met Increase ROM of L ankle DF for normal gait mechanics - met Increased strength of L ankle PF by demonstrating SL heel raise for improved gait quality - Progressing Normal gait. - progressing Patient Goals: Be able to walk 2-3 miles Based on the most recent progress report, patient was progressing as expected toward functional goals based on home exercise program compliance, pain levels, documented subjective information on progress, and documented objective information regarding ADL's, gait, independence in exercise, overall function, range of motion, and strength. Reason for Discontinuation of Care: Patient has not returned to therapy or scheduled additional follow-up appointments. Thad Srivastava PT US RENAL ARTERY [facility] Observed: 7:59 AM Status: F Source: [facility] Non-Invasive Vascular [facility] Renal or Mesenteric Duplex Bilateral/Complete Date of service/time: 09/06/2024 7:59:28 AM Name: HETAL HUSAIN Date of : 1970 Age: 53 years Gender: M Clinical Indication New onset or worsening hypertension. TECHNIQUE -------- A visceral duplex ultrasound examination was performed, including grayscale imaging and color Doppler and spectral Doppler examination of the below mentioned arteries and veins. FINDINGS -------- Aorta at renals PSV: 96 cm/s. EDV: 16 cm/s. Right renal artery origin PSV: 87 cm/s. EDV: 28 cm/s. Right renal artery proximal PSV: 157 cm/s. EDV: 38 cm/s. Right renal artery mid PSV: 154 cm/s. EDV: 33 cm/s. Right renal artery distal PSV: 57 cm/s. EDV: 21 cm/s. Right renal artery to aortic ratio (RAR): 1.6 Right kidney: Size: 13.3 cm. Right parenchyma resistive index and acceleration time Upper pole RI: 0.68 AT: 4 msec. Mid pole RI: 0.64 AT: 16 msec. Lower pole RI: 0.59 AT: 4 msec. Right renal vein patent. Left renal artery origin PSV: 88 cm/s. EDV: 25 cm/s. Left renal artery proximal PSV: 179 cm/s. EDV: 49 cm/s. Left renal artery mid PSV: 95 cm/s. EDV: 31 cm/s. Left renal artery distal PSV: 69 cm/s. EDV: 23 cm/s. Left renal artery to aortic ratio (RAR): 1.9 Left kidney: Size: 13.7 cm. Left parenchyma resistive index and acceleration time Upper pole RI: 0.64 AT: 8 msec. Mid pole RI: 0.66 AT: 16 msec. Lower pole RI: 0.66 AT: 8 msec. Left renal vein patent. IMPRESSION AORTA Aorta is patent at level of the renals RIGHT RENAL Right renal artery: 0-59% stenosis. No evidence of hemodynamically significant stenosis. LEFT RENAL Left renal artery: 0-59% stenosis. No evidence of hemodynamically significant stenosis. Technologist: Jacquie Frederick RVT, RDMS Ordering physician: Ike Jack MD Interpreting physician: YOLANDE Hernández DO Final CC [employer] Image : [id number] See Link below for Image US RENAL ARTERY [facility] Observed: 08/30/2024 8:00 AM Status: F Source: [facility] or Mesenteric Duplex Limited Date of service/time: 08/30/2024 8:00:59 AM Name: HETAL HUSAIN Date of : 1970 Age: 53 years Gender: M Clinical Indication Hypertension not responding to medical management. TECHNIQUE -------- A visceral duplex ultrasound examination was performed, including grayscale imaging and color Doppler and spectral Doppler examination of the below mentioned arteries and veins. FINDINGS -------- Aorta at renals PSV: 96 cm/s. EDV: 18 cm/s. Left renal artery origin PSV: 142 cm/s. EDV: 32 cm/s. Left renal artery proximal PSV: 125 cm/s. EDV: 31 cm/s. Left renal artery to aortic ratio (RAR): 1.5 IMPRESSION Machine and probe malfunction during exam. Unable to obtain further imaging at this time. Patient is rescheduled to complete exam. Do not bill. AORTA Aorta is patent at level of the renals LEFT RENAL Origin and proximal segments of renal artery are patent. Technologist: Jacquie Frederick RVT, [facility] Ordering physician: IKE JACK Interpreting physician: YOLANDE Hernández DO Final [facility] [employer] [facility] Image : [id number] See Link below for Image PROGRESS Observed: 08/15/2024 10:42 AM Status: COMPLETED Source: [facility] ID: [id number] Author: IKE JACK MD Service: ? Author Type: Physician Type: Progress Notes Filed: 08/16/2024 09:12 Note Text: Chief Complaint Patient presents with: Follow Up: 2 WEEK HPI Hetal Husain is a 53 year old male who presents here today for 2 week follow up on HTN and to discuss new DM diagnosis. Patient compliant with Metformin and Glimepiride without side effects or hypoglycemia. Symptoms of polyuria and polydipsia have resolved. Has booklets at home and has not read through them. Working on diet. Not exercising. Checking sugars BID with improving readings. Started out around 350 and the last 2 days have been <150. Not interested in DM educator. Has eye appointment scheduled for September or October. Bp well controlled on current regimen. Still awaiting renal artery US for resistant HTN. Past medical history, appointments, medications, allergies reviewed. Previous Medical History PAST MEDICAL HISTORY Diagnosis Date Achilles tendinitis of left lower extremity Achilles tendinitis, left leg Current moderate episode of major depressive disorder without prior episode (HCC) Diabetes mellitus type II (HCC) Elevated LFTs Essential hypertension Hepatic steatosis Hyperplastic colonic polyp Hypertension Mixed hyperlipidemia Obesity (BMI 30-39.9) Prediabetes Sleep apnea not using CPAP Tobacco use disorder Previous Surgical History PAST SURGICAL HISTORY Procedure Laterality Date ACHILLES TENDON SURGERY HX Left 01/27/2024 CHOLECYSTECTOMY Cholecystectomy COLONOSCOPY FLX DX W/COLLJ SPEC WHEN PFRMD 05/06/2020 Colonoscopy-repeat in 10 years DANTE PAST SURGICAL HISTORY OF 09/2020 sinoplasty Family History FAMILY HISTORY Problem Relation Age of Onset Melanoma Mother Fibromyalgia Mother Hypertension Father Coronary Artery Disease Maternal Grandfather CABG x4 Heart Paternal Grandfather [place] No Known Problems Daughter No Known Problems Son Patient Allergies ALLERGIES Allergen Reactions Lisinopril (Bulk) Cough Wellbutrin [Bupropi* Other: See Comments Anxiety Zoloft [Sertraline] Other: See Comments Sexual side effects. Current Medications Current Outpatient Medications on File Prior to Visit Medication Sig glimepiride (AMARYL) 4 mg tablet Take 2 tablets by mouth once daily. metFORMIN (GLUCOPHAGE) 1,000 mg tablet Take 1 tablet by mouth two times a day with meals. blood sugar diagnostic (BLOOD GLUCOSE TEST) test strip Test blood sugar(s) 1 times daily. Dx: Type 2 DM - Uncontrolled E11.65 Insulin: No Lancets Test blood sugar(s) 1 times daily. Dx: Type 2 DM - Uncontrolled E11.65 Insulin: No losartan (COZAAR) 100 mg tablet Take 1 tablet by mouth once daily. potassium chloride (K-TAB) 10 mEq tablet Take 1 tablet by mouth daily with breakfast. amLODIPine (NORVASC) 5 mg tablet Take 1 tablet by mouth once daily. metoprolol succinate ER (TOPROL XL) 100 mg Take 1 tablet by mouth once daily. DULoxetine (CYMBALTA) 20 mg capsule Take 1 capsule by mouth once daily. meloxicam (MOBIC) 15 mg tablet Take 1 tablet by mouth daily with food. atorvastatin (LIPITOR) 10 mg tablet Take 1 tablet by mouth daily at bedtime. For cholesterol. hydroCHLOROthiazide 50 mg tablet Take 1 tablet by mouth once daily. COMPOUNDED PRESCRIPTION Take by mouth once daily. Centrum Silver multivitamin aspirin 325 mg tablet Take 1 tablet by mouth two times a day for 28 days. No current facility-administered medications on file prior to visit. Social History Social History Tobacco Use Smoking status: Former Current packs/day: 0.00 Average packs/day: 0.5 packs/day for 7.1 years (3.5 ttl pk-yrs) Types: Cigarettes Start date: 11/08/2016 Quit date: 12/03/2023 Years since quittin.7 Passive exposure: Never Smokeless tobacco: Former Types: Snuff Quit date: 07/14/2015 Vaping Use Vaping status: current everyday user Substances: Flavoring Devices: Pre-filled or refillable cartridge Substance Use Topics Alcohol use: Yes Alcohol/week: 8.0 standard drinks of alcohol Types: 8 Standard drinks or equivalent per week Comment: 8 drinks most Tuesday Drug use: Not Currently Types: Marijuana Review of Symptoms REVIEW OF SYSTEMS GENERAL: No weight loss, malaise or fevers RESPIRATORY: Negative for cough, hemoptysis, wheezing, COPD, dyspnea or shortness of breath CARDIOVASCULAR: Negative for chest pain, leg swelling, hypertension, CHF or palpitations GI: No nausea, vomiting, or diarrhea SKIN: Negative for lesions, rash, and itching EXAM: BP 126/76 Pulse 71 Resp 16 Wt 119.6 kg (263 lb 9.6 oz) SpO2 97% BMI 36.76 kg/m? General Appearance: Well appearing, alert, in no acute distress, well-hydrated, well nourished.. Skin: Skin color, texture, turgor normal, no suspicious rashes or lesions. Lungs: Lungs clear to auscultation. No wheezing, rhonchi, rales.. Heart: RRR without murmur, gallop, or rubs. No ectopy. Abdomen: Normal abdominal exam, Abdomen soft, non-tender. Bowel sounds normal. No masses, organomegaly. Extremities: No deformities, edema, skin discoloration, clubbing or cyanosis. Good capillary refill. . Feet: Shoes and socks removed, No deformities, ulcers, calluses, normal distal pulses, and sensitive to 10 gm monofilament Health Maintenance List Anxiety Screening Never done Hepatitis B Vaccine(1 of 3 - 19+ 3-dose series) Never done DTaP,Tdap,Td Vaccine(1 - Tdap) due on 02/04/2018 Pneumococcal Vaccine: 50+(2 of 2 - PCV) due on 10/01/2019 Shingrix Vaccine(2 of 2) due on 06/03/2023 Annual PCP Team Chronic Disease Visit due on 08/15/2025 BP Controlled (<130/80) due on 08/15/2025 Diabetes Screening due on 08/03/2027 Lipid Screening due on 10/17/2028 Colorectal Cancer Screening due on 05/06/2030 Influenza Vaccine Completed Hepatitis C Screening Completed Covid-19 Vaccine Completed HIV Screening Discontinued ASSESSMENT/PLAN: 1. Diabetes mellitus type II (HCC) - ICD9: 250.00, ICD10: E11.9 (primary diagnosis) - New diagnosis, improving - Discussed management, symptoms, complications, monitoring. - Continue current medications - Statin prescribed - atorvastatin - Blood glucose monitoring on a twice daily schedule - Counseled on healthy diet and regular exercise - Discussed need for and benefit of weight loss. BMI 36.76 kg/(m2) - Discussed diabetic education issues of diabetes complications and monitoring required, hypoglycemic/hyperglycemic symptoms, and medication-specific side effects and monitoring - Follow up in 3 months, sooner should any other issues arise. 2. Primary hypertension - ICD9: 401.9, ICD10: I10 - Controlled - Continue current medications - Recommend home blood pressure monitoring, to bring results to next visit - Encouraged sodium restriction, DASH or Mediterranean diet - Recommend regular aerobic exercise Ike Jack MD CNOV Observed: 08/15/2024 10:00 AM Status: COMPLETED Source: [facility] Office Visit (FAMPWS) LISHAHETAL ([id number]) 1970 M Date Time Provider Department 08/15/24 10:00 AM IKE JACKWS During your visit today, we recorded the following information about you: Pulse Respiration Blood pressure Weight 71/minute 16/minute 126/76 119.6 kg Ike Jack MD 08/16/2024 9:12 AM Signed Chief Complaint Patient presents with: Follow Up: 2 WEEK HPI Hetal Husain is a 53 year old male who presents here today for 2 week follow up on HTN and to discuss new DM diagnosis. Patient compliant with Metformin and Glimepiride without side effects or hypoglycemia. Symptoms of polyuria and polydipsia have resolved. Has booklets at home and has not read through them. Working on diet. Not exercising. Checking sugars BID with improving readings. Started out around 350 and the last 2 days have been <150. Not interested in DM educator. Has eye appointment scheduled for September or October. Bp well controlled on current regimen. Still awaiting renal artery US for resistant HTN. Past medical history, appointments, medications, allergies reviewed. Previous Medical History PAST MEDICAL HISTORY Diagnosis Date Achilles tendinitis of left lower extremity Achilles tendinitis, left leg Current moderate episode of major depressive disorder without prior episode (HCC) Diabetes mellitus type II (HCC) Elevated LFTs Essential hypertension Hepatic steatosis Hyperplastic colonic polyp Hypertension Mixed hyperlipidemia Obesity (BMI 30-39.9) Prediabetes Sleep apnea not using CPAP Tobacco use disorder Previous Surgical History PAST SURGICAL HISTORY Procedure Laterality Date ACHILLES TENDON SURGERY HX Left 01/27/2024 CHOLECYSTECTOMY Cholecystectomy COLONOSCOPY FLX DX W/COLLJ SPEC WHEN PFRMD 05/06/2020 Colonoscopy-repeat in 10 years DANTE PAST SURGICAL HISTORY OF 09/2020 sinoplasty Family History FAMILY HISTORY Problem Relation Age of Onset Melanoma Mother Fibromyalgia Mother Hypertension Father Coronary Artery Disease Maternal Grandfather CABG x4 Heart Paternal Grandfather [place] No Known Problems Daughter No Known Problems Son Patient Allergies ALLERGIES Allergen Reactions Lisinopril (Bulk) Cough Wellbutrin [Bupropi* Other: See Comments Anxiety Zoloft [Sertraline] Other: See Comments Sexual side effects. Current Medications Current Outpatient Medications on File Prior to Visit Medication Sig glimepiride (AMARYL) 4 mg tablet Take 2 tablets by mouth once daily. metFORMIN (GLUCOPHAGE) 1,000 mg tablet Take 1 tablet by mouth two times a day with meals. blood sugar diagnostic (BLOOD GLUCOSE TEST) test strip Test blood sugar(s) 1 times daily. Dx: Type 2 DM - Uncontrolled E11.65 Insulin: No Lancets Test blood sugar(s) 1 times daily. Dx: Type 2 DM - Uncontrolled E11.65 Insulin: No losartan (COZAAR) 100 mg tablet Take 1 tablet by mouth once daily. potassium chloride (K-TAB) 10 mEq tablet Take 1 tablet by mouth daily with breakfast. amLODIPine (NORVASC) 5 mg tablet Take 1 tablet by mouth once daily. metoprolol succinate ER (TOPROL XL) 100 mg Take 1 tablet by mouth once daily. DULoxetine (CYMBALTA) 20 mg capsule Take 1 capsule by mouth once daily. meloxicam (MOBIC) 15 mg tablet Take 1 tablet by mouth daily with food. atorvastatin (LIPITOR) 10 mg tablet Take 1 tablet by mouth daily at bedtime. For cholesterol. hydroCHLOROthiazide 50 mg tablet Take 1 tablet by mouth once daily. COMPOUNDED PRESCRIPTION Take by mouth once daily. Centrum Silver multivitamin aspirin 325 mg tablet Take 1 tablet by mouth two times a day for 28 days. No current facility-administered medications on file prior to visit. Social History Social History Tobacco Use Smoking status: Former Current packs/day: 0.00 Average packs/day: 0.5 packs/day for 7.1 years (3.5 ttl pk-yrs) Types: Cigarettes Start date: 11/08/2016 Quit date: 12/03/2023 Years since quittin.7 Passive exposure: Never Smokeless tobacco: Former Types: Snuff Quit date: 07/14/2015 Vaping Use Vaping status: current everyday user Substances: Flavoring Devices: Pre-filled or refillable cartridge Substance Use Topics Alcohol use: Yes Alcohol/week: 8.0 standard drinks of alcohol Types: 8 Standard drinks or equivalent per week Comment: 8 drinks most Tuesday Drug use: Not Currently Types: Marijuana Review of Symptoms REVIEW OF SYSTEMS GENERAL: No weight loss, malaise or fevers RESPIRATORY: Negative for cough, hemoptysis, wheezing, COPD, dyspnea or shortness of breath CARDIOVASCULAR: Negative for chest pain, leg swelling, hypertension, CHF or palpitations GI: No nausea, vomiting, or diarrhea SKIN: Negative for lesions, rash, and itching EXAM: BP 126/76 Pulse 71 Resp 16 Wt 119.6 kg (263 lb 9.6 oz) SpO2 97% BMI 36.76 kg/m? General Appearance: Well appearing, alert, in no acute distress, well-hydrated, well nourished.. Skin: Skin color, texture, turgor normal, no suspicious rashes or lesions. Lungs: Lungs clear to auscultation. No wheezing, rhonchi, rales.. Heart: RRR without murmur, gallop, or rubs. No ectopy. Abdomen: Normal abdominal exam, Abdomen soft, non-tender. Bowel sounds normal. No masses, organomegaly. Extremities: No deformities, edema, skin discoloration, clubbing or cyanosis. Good capillary refill. . Feet: Shoes and socks removed, No deformities, ulcers, calluses, normal distal pulses, and sensitive to 10 gm monofilament Health Maintenance List Anxiety Screening Never done Hepatitis B Vaccine(1 of 3 - 19+ 3-dose series) Never done DTaP,Tdap,Td Vaccine(1 - Tdap) due on 02/04/2018 Pneumococcal Vaccine: 50+(2 of 2 - PCV) due on 10/01/2019 Shingrix Vaccine(2 of 2) due on 06/03/2023 Annual PCP Team Chronic Disease Visit due on 08/15/2025 BP Controlled (<130/80) due on 08/15/2025 Diabetes Screening due on 08/03/2027 Lipid Screening due on 10/17/2028 Colorectal Cancer Screening due on 05/06/2030 Influenza Vaccine Completed Hepatitis C Screening Completed Covid-19 Vaccine Completed HIV Screening Discontinued ASSESSMENT/PLAN: 1. Diabetes mellitus type II (HCC) - ICD9: 250.00, ICD10: E11.9 (primary diagnosis) - New diagnosis, improving - Discussed management, symptoms, complications, monitoring. - Continue current medications - Statin prescribed - atorvastatin - Blood glucose monitoring on a twice daily schedule - Counseled on healthy diet and regular exercise - Discussed need for and benefit of weight loss. BMI 36.76 kg/(m2) - Discussed diabetic education issues of diabetes complications and monitoring required, hypoglycemic/hyperglycemic symptoms, and medication-specific side effects and monitoring - Follow up in 3 months, sooner should any other issues arise. 2. Primary hypertension - ICD9: 401.9, ICD10: I10 - Controlled - Continue current medications - Recommend home blood pressure monitoring, to bring results to next visit - Encouraged sodium restriction, DASH or Mediterranean diet - Recommend regular aerobic exercise Ike Jack MD Allergies As of Date: 08/15/2024 Noted Allergy Reaction LISINOPRIL (BULK) 07/14/2017 3 - Cough WELLBUTRIN (BUPROPION) 09/06/2023 14 - Other: See Comments Comments: Anxiety ZOLOFT (SERTRALINE) 08/11/2020 14 - Other: See Comments Comments: Sexual side effects. Date Reviewed: 08/15/2024 Reviewed by: Laughery, Lesia, SUBGRADE ROLLER OPERATOR - Fully Assessed Reason for Visit: Follow Up [171] Cmt: 2 WEEK Primary Visit Diagnosis:Diabetes mellitus type II (HCC) [E11.9] Other Visit Diagnosis:Primary hypertension [I10] Prescriptions as of 08/16/2024 - glimepiride (AMARYL) 4 mg tablet Take 2 tablets by mouth once daily. - metFORMIN (GLUCOPHAGE) 1,000 mg tablet Take 1 tablet by mouth two times a day with meals. - blood sugar diagnostic (BLOOD GLUCOSE TEST) test strip Test blood sugar(s) 1 times daily. Dx: Type 2 DM - Uncontrolled E11.65 Insulin: No - Lancets Test blood sugar(s) 1 times daily. Dx: Type 2 DM - Uncontrolled E11.65 Insulin: No - losartan (COZAAR) 100 mg tablet Take 1 tablet by mouth once daily. - potassium chloride (K-TAB) 10 mEq tablet Take 1 tablet by mouth daily with breakfast. - amLODIPine (NORVASC) 5 mg tablet Take 1 tablet by mouth once daily. - metoprolol succinate ER (TOPROL XL) 100 mg Take 1 tablet by mouth once daily. - DULoxetine (CYMBALTA) 20 mg capsule Take 1 capsule by mouth once daily. - meloxicam (MOBIC) 15 mg tablet Take 1 tablet by mouth daily with food. - atorvastatin (LIPITOR) 10 mg tablet Take 1 tablet by mouth daily at bedtime. For cholesterol. - hydroCHLOROthiazide 50 mg tablet Take 1 tablet by mouth once daily. - COMPOUNDED PRESCRIPTION Take by mouth once daily. 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 Disposition: Return in about 3 months (around 11/12/2024). Follow-up and Disposition History for Encounter Date Provider Department Center 08/15/2024 [id number]-RDEIKMKSTEPHANIE JACKESAU Bhakta [facility] Encounter Status:Closed by IKE JACK on 08/16/24 CNOV Observed: 08/09/2024 10:00 AM Status: COMPLETED Source: [facility] Office Visit (ORTHIN) HETAL HUSAIN ([id number]) 1970 M Date Time Provider Department 08/09/24 10:00 AM FRED MICHELE During your visit today, we recorded the following information about you: Fred Michele MD 08/09/2024 10:30 AM Signed Hetal Husain Surgery Date: 01/27/2024 Surgery: L achilles tendon debridement Interval History: He is now 6 months since surgery. They report he is doing well. Notes he has occasional soreness or pain with but is very mild. Notes some tenderness at the distal aspect of the Achilles. He has finished physical therapy last in May. Occasionally, does PT exercises at home, but notes that he is not that consistent with that. He is back to all activities that he wants to. He has no specific concerns or questions today. Reports he was debating even coming today because he feels like he is doing well. ASSESSMENT/PLAN: 6 months S/P Left Achilles tendon secondary repair, Left calcaneal Exostectomy, Left Achilles tendon debridement on 01/27/2024. - Doing very well overall, expected recovery to this date Follow up PRN Physical Exam: Well appearing male in no acute distress; Alert and oriented. Left Leg: Incision is clean dry and intact. There is no erythema warmth or drainage. Mild TTP achilles insertion He has palpable pulses, sensation is intact. He is able to flex and extend their toes and ankles without difficult Full and painless strength Radiographs: No imaging obtained in clinic today Medication, History, and Allergies were reviewed and updated in the medical record. Jaquan Freedman MD Orthopaedic Attending Addendum Attending Note: Cutler findings of HPI confirmed. Patient examined. Discussed with the resident and the patient. Plan as outlined below. ASSESSMENT/PLAN: 1. Achilles tendinitis of left lower extremity - ICD9: 726.71, ICD10: M76.62 - Continue all activities as tolerated - Follow up as needed Fred Michele MD Orthopaedic Medical Decision Making (MDM) Complexity of problems: Stable chronic illness, Level of MDM: Minimal (2) Allergies As of Date: 08/09/2024 Noted Allergy Reaction LISINOPRIL (BULK) 07/14/2017 3 - Cough WELLBUTRIN (BUPROPION) 09/06/2023 14 - Other: See Comments Comments: Anxiety ZOLOFT (SERTRALINE) 08/11/2020 14 - Other: See Comments Comments: Sexual side effects. Date Reviewed: 08/09/2024 Reviewed by: Liban Holliday MA - Fully Assessed Reason for Visit: Post Op [174] Primary Visit Diagnosis:Achilles tendinitis of left lower extremity [M76.62] Prescriptions as of 08/09/2024 - glimepiride (AMARYL) 4 mg tablet Take 2 tablets by mouth once daily. - metFORMIN (GLUCOPHAGE) 1,000 mg tablet Take 1 tablet by mouth two times a day with meals. - blood sugar diagnostic (BLOOD GLUCOSE TEST) test strip Test blood sugar(s) 1 times daily. Dx: Type 2 DM - Uncontrolled E11.65 Insulin: No - Lancets Test blood sugar(s) 1 times daily. Dx: Type 2 DM - Uncontrolled E11.65 Insulin: No - losartan (COZAAR) 100 mg tablet Take 1 tablet by mouth once daily. - potassium chloride (K-TAB) 10 mEq tablet Take 1 tablet by mouth daily with breakfast. - amLODIPine (NORVASC) 5 mg tablet Take 1 tablet by mouth once daily. - metoprolol succinate ER (TOPROL XL) 100 mg Take 1 tablet by mouth once daily. - DULoxetine (CYMBALTA) 20 mg capsule Take 1 capsule by mouth once daily. - meloxicam (MOBIC) 15 mg tablet Take 1 tablet by mouth daily with food. - atorvastatin (LIPITOR) 10 mg tablet Take 1 tablet by mouth daily at bedtime. For cholesterol. - hydroCHLOROthiazide 50 mg tablet Take 1 tablet by mouth once daily. - aspirin 325 mg tablet Take 1 tablet by mouth two times a day for 28 days. - COMPOUNDED PRESCRIPTION Take by mouth once daily. 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 Follow-up and Disposition History for Encounter Date Provider Department Center 08/09/2024 [id number]-AHOFVGL-QZLLRFL, *ORTHIN [facility] Encounter Status:Closed by FRED MICHELE on 08/09/24 PROGRESS Observed: 08/09/2024 10:00 AM Status: COMPLETED Source: [facility] ID: [id number] Author: FRED MICHELE MD Service: ? Author Type: Physician Type: Progress Notes Filed: 08/09/2024 10:30 Note Text: Hetal Husain Surgery Date: 01/27/2024 Surgery: L achilles tendon debridement Interval History: He is now 6 months since surgery. They report he is doing well. Notes he has occasional soreness or pain with but is very mild. Notes some tenderness at the distal aspect of the Achilles. He has finished physical therapy last in May. Occasionally, does PT exercises at home, but notes that he is not that consistent with that. He is back to all activities that he wants to. He has no specific concerns or questions today. Reports he was debating even coming today because he feels like he is doing well. ASSESSMENT/PLAN: 6 months S/P Left Achilles tendon secondary repair, Left calcaneal Exostectomy, Left Achilles tendon debridement on 01/27/2024. - Doing very well overall, expected recovery to this date Follow up PRN Physical Exam: Well appearing male in no acute distress; Alert and oriented. Left Leg: Incision is clean dry and intact. There is no erythema warmth or drainage. Mild TTP achilles insertion He has palpable pulses, sensation is intact. He is able to flex and extend their toes and ankles without difficult Full and painless strength Radiographs: No imaging obtained in clinic today Medication, History, and Allergies were reviewed and updated in the medical record. Jaquan Freedman MD Orthopaedic Attending Addendum Attending Note: Cutler findings of HPI confirmed. Patient examined. Discussed with the resident and the patient. Plan as outlined below. ASSESSMENT/PLAN: 1. Achilles tendinitis of left lower extremity - ICD9: 726.71, ICD10: M76.62 - Continue all activities as tolerated - Follow up as needed Fred Michele MD Orthopaedic Medical Decision Making (MDM) Complexity of problems: Stable chronic illness, Level of MDM: Minimal (2) CNPN Observed: 08/06/2024 12:00 AM Status: COMPLETED Source: [facility] Telephone ([employer]) HETAL HUSAIN ([id number]) 1970 M Date Time Provider Department 08/06/24 IKE JACK During your visit today, we recorded the following information about you: Lesia Gomez LPN 08/06/2024 7:18 AM Signed ----- Message from Ike Jack MD sent at 08/06/2024 7:01 AM EST ----- Patient's A1c is 10.1, consistent with diabetes. Continue treatment as discussed in office. What have his sugars been over the weekend? Mel Albarran MA 08/06/2024 9:25 AM Signed Message left for pt to call back for results. Rebecca Mccurdy MA, RN 08/06/2024 11:01 AM Signed Patient calls and notified of results and providers instructions. Patient verbalizes understanding. Blood Sugar Readings: Tuesday 832 pm 350 Tuesday 644 am 330 219 pm 351 849 pm 296 Tuesday 752 am 285 845 pm 298 Tuesday 6 am 307 Asymptomatic TARA Michelle Christopher B, MD 08/06/2024 12:27 PM Signed Sugar levels remain high. If he is only taking 2 mg of glimepiride, I would have him to increase to 4 mg. If he is taking 4 mg, I will send in new rx for 8 mg. Continue checking sugars twice daily and call with updated readings at the end of the week. Lesia Gomez LPN 08/06/2024 3:45 PM Signed Patient reported he has been taking 4mg since Tuesday. Advised him to increase to 8mg. Patient voiced understanding. Please send Rx to [facility] in [place]. MARVA Mart Christopher B, MD 08/07/2024 7:01 AM Signed Rx sent. Lesia Gomez LPN 08/07/2024 7:52 AM Signed ----- Message from Ike Jack MD sent at 08/07/2024 7:04 AM EST ----- Aldosterone levels normal. No sign of hyperaldosteronism as possible cause for his resistant hypertension. Lesia Gomez LPN 08/07/2024 8:28 AM Signed Reviewed results with patient. Patient voiced understanding but still concerned that despite the things he is doing and with the medications he is still having BP issues. He stated it is very frustrating. MARVA Mart Christopher B, MD 08/07/2024 8:35 AM Signed At his last OV, BP at home and in the office was controlled. We are still working up other causes with the renal artery US. Keep appointment in 2 weeks and bring home BP and sugar logs. Lesia Gomez LPN 08/07/2024 9:24 AM Signed Phoned patient and reviewed message with him. Patient voiced understanding. Lesia Gomez LPN Allergies As of Date: 08/06/2024 Noted Allergy Reaction LISINOPRIL (BULK) 07/14/2017 3 - Cough WELLBUTRIN (BUPROPION) 09/06/2023 14 - Other: See Comments Comments: Anxiety ZOLOFT (SERTRALINE) 08/11/2020 14 - Other: See Comments Comments: Sexual side effects. Date Reviewed: 08/03/2024 Reviewed by: Lesia Gomez LPN - Fully Assessed Reason for Visit: Results [95] Visit Diagnosis:Glucosuria [R81] Order(s):glimepiride (AMARYL) 4 mg tabletTake 2 tablets by mouth once daily.Disp: 180 tabletRfl: 1 Prescriptions as of 08/07/2024 - glimepiride (AMARYL) 4 mg tablet Take 2 tablets by mouth once daily. - metFORMIN (GLUCOPHAGE) 1,000 mg tablet Take 1 tablet by mouth two times a day with meals. - blood sugar diagnostic (BLOOD GLUCOSE TEST) test strip Test blood sugar(s) 1 times daily. Dx: Type 2 DM - Uncontrolled E11.65 Insulin: No - Lancets Test blood sugar(s) 1 times daily. Dx: Type 2 DM - Uncontrolled E11.65 Insulin: No - losartan (COZAAR) 100 mg tablet Take 1 tablet by mouth once daily. - potassium chloride (K-TAB) 10 mEq tablet Take 1 tablet by mouth daily with breakfast. - amLODIPine (NORVASC) 5 mg tablet Take 1 tablet by mouth once daily. - metoprolol succinate ER (TOPROL XL) 100 mg Take 1 tablet by mouth once daily. - DULoxetine (CYMBALTA) 20 mg capsule Take 1 capsule by mouth once daily. - meloxicam (MOBIC) 15 mg tablet Take 1 tablet by mouth daily with food. - atorvastatin (LIPITOR) 10 mg tablet Take 1 tablet by mouth daily at bedtime. For cholesterol. - hydroCHLOROthiazide 50 mg tablet Take 1 tablet by mouth once daily. - aspirin 325 mg tablet Take 1 tablet by mouth two times a day for 28 days. - COMPOUNDED PRESCRIPTION Take by mouth once daily. 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 Medications Discontinued During This Encounter Prescriptions - glimepiride (AMARYL) 2 mg tablet (Discontinued) Take 1 tablet by mouth once daily. Encounter Status:Closed by LESIA GOMEZ on 08/07/24 DEPRECATED HGB A1C BLD Collected: 08/03 12:37 PM Status: F Source: [facility] Order Comment: Specimen Type : BLOOD SPECIMEN Ordering Facility: [facility] Address: [address] [place] [address] TYPE CODE TESTS RESULT OUT OF RANGE REFERENCE UNITS LAB 4548-4(LOINC) HbA1c MFr Bld 10.1 High 4.3-5.6 % Result Comment: [place] [employer] guidelines indicate that patients with HgbA1c in the range 5.7-6.4% are at increased risk for development of diabetes, and intervention by lifestyle modification may be beneficial. HgbA1c greater or equal to 6.5% is considered diagnostic of diabetes. LAB 74912-7(LOINC) Est. average glucose Bld gHb Est-mCnc 243 mg/dL Result Comment: eAG: (Estima jasvir average glucose) is a calculated value from HgbA1c and is inbound call center representative of the average blood glucose level in the last 2-3 month period. Performed By: #### [id number] # ### [facility] CLIA [id number] [address] [place] [address] [place] [address] [place] ALDOSTERONE/DIRECT RENIN RATIO Collecte d: 08/03/2024 12:37 PM Status: F Source: [facility] Order Comment: Specimen Type : BLOOD SPECIMEN Ordering Facility: [facility] Address: [address] [place] [address] TYPE CODE TESTS RESULT OUT OF RANGE REFERENCE UNITS LAB 1763-2(LOINC) Aldost SerPl-mCnc 15.2 0.0-<35.4 ng/dL Result Comment: The referenc e interval for serum/plasma aldosterone is based on a normal sodium intake and upright position. High sodium intake may suppress aldosterone and low sodium intake may increase aldosterone. The supine reference interval is <23.7 ng/dL. A ratio of aldosterone in ng/dL to direct renin in pg/mL greater than or equal to 3.8 is a positive screening test result for primary aldosteronism, when aldosterone is greater than or equal to 15 ng/dL. LAB RENDI DIRECT RENIN 28.3 3.6-81.6 pg/mL Result Comment: The referenc e interval for direct renin is based on an upright position. The supine reference intervals are: Age <41 years: 3.2-33.2 pg/mL Age >=41 years: 2.5-45.1 pg/mL A ratio of aldosterone in ng/dL to direct renin in pg/mL greater than or equal to 3.8 is a positive screening test result for primary aldosteronism, when aldosterone is greater than or equal to 15 ng/dL. LAB ALREN SAMMIE RENIN RATIO 0.5 <3.8 Result Comment: A ratio of a ldosterone in ng/dL to direct renin in pg/mL greater than or equal to 3.8 is a positive screening test result for primary aldosteronism, when aldosterone is greater than or equal to 15 ng/dL. LAB PATIENT PATIENT UPRIGHT OR SUPINE Upright Performed By: #### ASHLEY ## ## [facility] CLIA [id number] [address] [place] [id number] [place] CBC W AUTO DIFF BLD Collected: 08/03/2024 12:32 PM S tatus: F Source: [facility] Order Comment: Specimen Type : BLOOD SPECIMEN Ordering Facility: [facility] Address: [address] [place] [address] TYPE CODE TESTS RESULT OUT OF RANGE REFERENCE UNITS LAB 6690-2(INC) WBC # Bld Auto 7.12 3.70-11.00 k/uL LAB 789-8(INC) RBC # Bld Auto 4.56 4.20-6.00 m/ uL LAB 718-7(INC) Hgb Bld-mCnc 14.5 13.0-17.0 g/dL LAB 4544-3(INC) Hct VFr Bld Auto 41.9 39.0-51.0 % LAB 787-2(LOINC) MCV RBC Auto 91.9 80.0-100.0 fL LAB 785-6(INC) MCH RBC Qn Auto 31.8 26.0-34.0 p g LAB 786-4(INC) MCHC RBC Auto-mCnc 34.6 30.5-36.0 g/dL LAB 22971-9(INC) RDW RBC-Rto 12.3 11.5-15.0 % LAB 777-3(INC) Platelet # Bld Auto 230 150-400 k/uL LAB 28776-7(LOINC) PMV Bld Auto 9.7 9.0-12.7 fL LAB 770-8(LOINC) Neutrophils/leuk NFr Bld Auto 51.7 % LAB 751-8(LOINC) Neutrophils # Bld Auto 3.68 1.45-7.50 k/uL LAB 736-9(LOINC) Lymphocytes/leuk NFr Bld Auto 37.6 % LAB 731-0(LOINC) Lymphocytes # Bld Auto 2.68 1.00-4.00 k/uL LAB 5905-5(LOINC) Monocytes/leuk NFr Bld Auto 6.7 % LAB 742-7(LOINC) Monocytes # Bld Auto 0.48 <0.87 k/uL LAB 713-8(LOINC) Eosinophil/leuk NFr Bld Auto 2.7 % LAB 711-2([facility]) Eosinophil # Bld Auto 0.19 <0.46 k/uL LAB 706-2([facility]) Basophils/leuk NFr Bld Auto 0.7 % LAB 704-7([facility]) Basophils # Bld Auto 0.05 <0.11 k/uL LAB 69985-3([facility]) Imm Granulocytes/neli k NFr Bld Auto 0.6 % LAB 19478-1([facility]) Imm Granulocytes # Bld Auto 0.04 <0.10 k/uL LAB 97840-1([facility]) nRBC/100 WBC Bld-Rto 0.0 /100 WBC LAB 771-6([facility]) nRBC # Bld Auto <0.01 <0.01 k/u L LAB 39977-3([facility]) Differential method Bld Auto Performed By: #### [id number] # ### [facility] CLIA [id number] [address] [place] [address] STATES [place] [facility] COMP METAB 2000 PNL SERPL Collected: 12:32 PM Status: F Source: [facility] Order Comment: Specimen Type : BLOOD SPECIMEN Ordering Facility: [facility] Address: [address] [place] [address] TYPE CODE TESTS RESULT OUT OF RANGE REFERENCE UNITS LAB 2885-2([facility]) Prot SerPl-mCnc 7.2 6.3-8.0 g/dL LAB 1751-7([facility]) Albumin SerPl-mCnc 4.7 3.9-4.9 g/dL LAB 90028-8([facility]) Calcium SerPl-mCnc 10.5 High 8.5-10.2 mg/dL LAB 1975-2([facility]) Bilirub SerPl-mCnc 0.5 0.2-1.3 mg/dL LAB 6768-6([facility]) ALP SerPl-cCnc 108 38-113 U/L LAB 1920-8(LOINC) AST SerPl-cCnc 30 14-40 U/L LAB 1742-6(LOINC) ALT SerPl-cCnc 74 High 10-54 U/L LAB 2345-7(LOINC) Glucose SerPl-mCnc 436 High 74-99 mg/dL Result Comment: The [place] Diabetes Association (ADA) provides guidance for cutoff values for fasting glucose and random glucose. The ADA defines fasting as no caloric intake for at least 8 hours. Fasting plasma glucose results between 100 to 125 mg/dL indicate increased risk for diabetes (prediabetes). Fasting plasma glucose results greater than or equal to 126 mg/dL meet the criteria for diagnosis of diabetes. In the absence of unequivocal hyperglycemia, results should be confirmed by repeat testing. In a patient with classic symptoms of hyperglycemia or hyperglycemic crisis, random plasma glucose results greater than or equal to 200 mg/dL meet the criteria for diagnosis of diabetes. Reference: Standards of Medical Care in Diabetes 2016, [place] [employer] Association. Diabetes Care. 2016.39(Suppl 1). LAB 3094-0(LOINC) BUN SerPl-mCnc 22 9-24 mg/ dL LAB 2160-0(LOINC) Creat SerPl-mCnc 0.66 Low 0.73-1.22 mg/dL LAB 2951-2(LOINC) Sodium SerPl-sCnc 136 136-144 mmol/L LAB 2823-3(LOINC) Potassium SerPl-sCnc 4.8 3.7-5.1 mmol/L LAB 2075-0(LOINC) Chloride SerPl-sCnc 98 98-107 mmol/L LAB 2028-9(LOINC) CO2 SerPl-sCnc 30 22-30 mmo l/L LAB 10964-7(LOINC) Anion Gap SerPl-sCnc 8 8-15 mmol/L LAB 18102-9(LOINC) Creatinine + eGFR Pnl SerPlBld 111 >=60 mL/min/1 .73m??? Result Comment: Estimated Gl omerular Filtration Rate (eGFR) is calculated using the 2020 CKD-EPI creatinine equation. This equation utilizes serum creatinine, sex, and age as parameters. The creatinine assay has traceable calibration to isotope dilution-mass spectrometry. Refer to KDIGO guidelines for clinical interpretation. In patients with unstable renal function, e.g. those with acute kidney injury, the eGFR may not accurately reflect actual GFR. Performed By: #### 69076-6 # ### [facility] [id number] [address] [place], [place] [id number] [place] PROGRESS Observed: 08/03/2024 11:18 AM Status: COMPLETED Source: [facility] ID: [id number] Author: IKE JACK MD Service: ? Author Type: Physician Type: Progress Notes Filed: 08/09/2024 20:06 Note Text: Chief Complaint Patient presents with: Follow Up: BP HPI Hetal Husain is a 53 year old male who presents here today for Above Complaints. Patient here today for follow up on HTN and LE swelling. Reduced his dosage of amlodipine from 10 mg daily and increased his metoprolol which has helped with swelling. Wearing compression stockings daily now and keeping legs elevated when resting. BP at home 130's/80s. Patient also complaining of increased thirst, dry mouth, and frequent urination which started about 1-2 weeks ago. Getting up 7-8 times per night and has had some dribbling. Admits to urgency. Denies dysuria, hematuria, abdominal pain, nausea, vomiting, flank pain, weak stream, straining, confusion, fatigue. Past medical history, appointments, medications, allergies reviewed. Previous Medical History PAST MEDICAL HISTORY Diagnosis Date Achilles tendinitis of left lower extremity Achilles tendinitis, left leg Current moderate episode of major depressive disorder without prior episode (HCC) Elevated LFTs Essential hypertension Hepatic steatosis Hyperplastic colonic polyp Hypertension Mixed hyperlipidemia Obesity (BMI 30-39.9) Prediabetes Sleep apnea not using CPAP Tobacco use disorder Previous Surgical History PAST SURGICAL HISTORY Procedure Laterality Date ACHILLES TENDON SURGERY HX Left 01/27/2024 CHOLECYSTECTOMY Cholecystectomy COLONOSCOPY FLX DX W/COLLJ SPEC WHEN PFRMD 05/06/2020 Colonoscopy-repeat in 10 years LASIK PAST SURGICAL HISTORY OF 09/2020 sinoplasty Family History FAMILY HISTORY Problem Relation Age of Onset Melanoma Mother Fibromyalgia Mother Hypertension Father Coronary Artery Disease Maternal Grandfather CABG x4 Heart Paternal Grandfather [place] No Known Problems Daughter No Known Problems Son Patient Allergies ALLERGIES Allergen Reactions Lisinopril (Bulk) Cough Wellbutrin [Bupropi* Other: See Comments Anxiety Zoloft [Sertraline] Other: See Comments Sexual side effects. Current Medications Current Outpatient Medications on File Prior to Visit Medication Sig losartan (COZAAR) 100 mg tablet Take 1 tablet by mouth once daily. potassium chloride (K-TAB) 10 mEq tablet Take 1 tablet by mouth daily with breakfast. amLODIPine (NORVASC) 5 mg tablet Take 1 tablet by mouth once daily. metoprolol succinate ER (TOPROL XL) 100 mg Take 1 tablet by mouth once daily. DULoxetine (CYMBALTA) 20 mg capsule Take 1 capsule by mouth once daily. meloxicam (MOBIC) 15 mg tablet Take 1 tablet by mouth daily with food. atorvastatin (LIPITOR) 10 mg tablet Take 1 tablet by mouth daily at bedtime. For cholesterol. metFORMIN (GLUCOPHAGE) 500 mg tablet Take 1 tablet by mouth two times a day with meals. hydroCHLOROthiazide 50 mg tablet Take 1 tablet by mouth once daily. COMPOUNDED PRESCRIPTION Take by mouth once daily. Centrum Silver multivitamin aspirin 325 mg tablet Take 1 tablet by mouth two times a day for 28 days. No current facility-administered medications on file prior to visit. Social History Social History Tobacco Use Smoking status: Former Current packs/day: 0.00 Average packs/day: 0.5 packs/day for 7.1 years (3.5 ttl pk-yrs) Types: Cigarettes Start date: 11/08/2016 Quit date: 12/03/2023 Years since quittin.6 Passive exposure: Never Smokeless tobacco: Former Types: Snuff Quit date: 07/14/2015 Vaping Use Vaping status: current everyday user Substances: Flavoring Devices: Pre-filled or refillable cartridge Substance Use Topics Alcohol use: Yes Alcohol/week: 8.0 standard drinks of alcohol Types: 8 Standard drinks or equivalent per week Comment: 8 drinks most Tuesday Drug use: Not Currently Types: Marijuana Review of Symptoms REVIEW OF SYSTEMS See HPI EXAM: BP 132/80 Pulse 89 Resp 16 Wt 121.2 kg (267 lb 3.2 oz) SpO2 98% BMI 37.27 kg/m? General Appearance: Well appearing, alert, in no acute distress, well-hydrated, well nourished.. Skin: Skin color, texture, turgor normal, no suspicious rashes or lesions. Lungs: Lungs clear to auscultation. No wheezing, rhonchi, rales.. Heart: RRR without murmur, gallop, or rubs. No ectopy. Abdomen: Normal abdominal exam, Abdomen soft, non-tender. Bowel sounds normal. No masses, organomegaly, Negative CVA tenderness. Extremities: No deformities, edema, skin discoloration, clubbing or cyanosis. Good capillary refill. . Health Maintenance List Anxiety Screening Never done BP Controlled (<130/80) Never done Hepatitis B Vaccine(1 of 3 - 19+ 3-dose series) Never done DTaP,Tdap,Td Vaccine(1 - Tdap) due on 02/04/2018 Pneumococcal Vaccine: 50+(2 of 2 - PCV) due on 10/01/2019 Shingrix Vaccine(2 of 2) due on 06/03/2023 Annual PCP Team Chronic Disease Visit due on 08/03/2025 Diabetes Screening due on 04/11/2027 Lipid Screening due on 10/17/2028 Colorectal Cancer Screening due on 05/06/2030 Influenza Vaccine Completed Hepatitis C Screening Completed Covid-19 Vaccine Completed HIV Screening Discontinued Data reviewed Latest Ref Rng 03/16/2024 04/11/2024 WBC 3.70 - 11.00 k/uL 6.84 RBC 4.20 - 6.00 m/uL 4.64 Hemoglobin 13.0 - 17.0 g/dL 15.0 Hematocrit 39.0 - 51.0 % 44.8 MCV 80.0 - 100.0 fL 96.6 MCH 26.0 - 34.0 pg 32.3 MCHC 30.5 - 36.0 g/dL 33.5 RDW-CV 11.5 - 15.0 % 12.3 Platelet Count 150 - 400 k/uL 245 MPV 9.0 - 12.7 fL 9.4 Neut% % 45.5 Abs Neut (ANC) 1.45 - 7.50 k/uL 3.11 Lymph% % 39.2 Abs Lymph 1.00 - 4.00 k/uL 2.68 Mcnairy% % 8.3 Abs Mcnairy <0.87 k/uL 0.57 Eosin% % 5.7 Abs Eosin <0.46 k/uL 0.39 Baso% % 0.9 Abs Baso <0.11 k/uL 0.06 Immature Gran % % 0.4 IMMATURE GRANS (ABS) <0.10 k/uL 0.03 NRBC /100 WBC 0.0 Absolute nRBC <0.01 k/uL <0.01 DTYPE Auto Protein, Total 6.3 - 8.0 g/dL 6.9 6.8 Albumin 3.9 - 4.9 g/dL 4.6 4.3 Calcium 8.5 - 10.2 mg/dL 10.6 (H) 9.2 Bilirubin, Total 0.2 - 1.3 mg/dL 1.0 0.9 Alkaline Phosphatase 38 - 113 U/L 59 59 AST 14 - 40 U/L 57 (H) 46 (H) ALT 10 - 54 U/L 128 (H) 104 (H) Glucose 74 - 99 mg/dL 105 (H) 141 (H) BUN 9 - 24 mg/dL 18 18 Creatinine 0.73 - 1.22 mg/dL 0.88 0.80 Sodium 136 - 144 mmol/L 142 139 Potassium 3.7 - 5.1 mmol/L 4.4 4.1 Chloride 98 - 107 mmol/L 101 101 CO2 22 - 30 mmol/L 29 28 Anion Gap 8 - 15 mmol/L 12 10 eGFR >=60 mL/min/1.73m? 102 105 TSH 0.270 - 4.200 mIU/L 2.650 Vitamin D 25 Hydroxy 31.0 - 80.0 ng/mL 31.1 Vitamin B12 232 - 1,245 pg/mL 711 Legend: (H) High Latest Ref Rng 08/03/2024 GLUCOSE UA (POCT) Negative mg/dL >=1000 ! BILIRUBIN UA (POCT) Negative Negative KETONE UA (POCT) Negative mg/dL 40 ! SPECIFIC GRAVITY UA (POCT) 1.005 - 1.030 1.020 HEMOGLOBIN/BLOOD UA (POCT) Negative Trace-intact ! PH UA (POCT) 4.5 - 8.0 7.0 PROTEIN UA (POCT) Negative mg/dL 30 ! UROBILINOGEN UA (POCT) Normal E.U./dL 0.2 NITRITE UA (POCT) Negative Negative LEUKOCYTES UA (POCT) Negative Negative COLOR UA (POCT) Yellow CLARITY UA (POCT) Clear Glucose, Point of Care 74 - 99 mg/dL 390 ! Legend: ! Abnormal ASSESSMENT/PLAN: 1. Resistant hypertension - ICD9: 401.9, ICD10: I1A.0 (primary diagnosis) BP improved on current regimen. Obtain labs to r/o hyperaldosteronism and renal artery US. Recommend low sodium diet <2,000 mg per day, avoidance of NSAIDs. - ALBUMIN/CREATININE RATIO, URINE - ALDOSTERONE/DIRECT RENIN RATIO - US RENAL ARTERY [facility] 2. Urinary frequency - ICD9: 788.41, ICD10: R35.0 acute UA positive for glucose without infection. Glucose today consistent with DM. - UA DIP, URINE (POC) - COMPREHENSIVE METABOLIC PANEL - HEMOGLOBIN A1C - COMPLETE BLOOD COUNT AND DIFFERENTIAL 3. Glucosuria - ICD9: 791.5, ICD10: R81 - GLUCOSE, BLOOD (POC) - COMPREHENSIVE METABOLIC PANEL - HEMOGLOBIN A1C - COMPLETE BLOOD COUNT AND DIFFERENTIAL - ALBUMIN/CREATININE RATIO, URINE - METFORMIN 1,000 MG TABLET - GLIMEPIRIDE 2 MG TABLET 4. Hyperglycemia - ICD9: 790.29, ICD10: R73.9 Glucose consistent with DM. Will start on metformin and Glimepiride and check stat labs to r/o DKA. Red flags for re-assessment reviewed with patient in detail. Discussed low carb diet and given booklets for home. F/u in 2 weeks to discuss new dx further. - HOME BLOOD GLUCOSE MONITOR - BLOOD SUGAR DIAGNOSTIC STRIPS - LANCETS - BLOOD-GLUCOSE METER KIT 5. Diabetes mellitus type II (HCC) - ICD9: 250.00, ICD10: E11.9 - New diagnosis - Start metformin and glimepiride. - Statin prescribed - atorvastatin - Blood glucose monitoring on a twice daily schedule - Counseled on healthy diet and regular exercise - Discussed need for and benefit of weight loss. BMI 37.27 kg/(m2) - Discussed diabetic education issues of diabetes complications and monitoring required, hypoglycemic/hyperglycemic symptoms, and medication-specific side effects and monitoring - Follow up in 2 weeks, sooner should any other issues arise. - BLOOD-GLUCOSE METER KIT I spent a total of 40 minutes on the date of the service which included preparing to see the patient, [id number] patient care, completing clinical documentation, obtaining and/or reviewing separately obtained history, performing a medically appropriate examination, counseling and educating the patient/family/caregiver, ordering medications, tests, or procedures, independently interpreting results (not separately reported), and communicating results to the patient/family/caregiver. Ike Jack MD CNOV Observed: 08/03/2024 11:00 AM Status: COMPLETED Source: [facility] HETAL HUSAIN ([id number]) 1970 M Date Time Provider Department 08/03/24 11:00 AM IKE JACK During your visit today, we recorded the following information about you: Pulse Respiration Blood pressure Weight 89/minute 16/minute 132/80 121.2 kg Ike Jack MD 08/09/2024 8:06 PM Signed Chief Complaint Patient presents with: Follow Up: BP HPI Hetal Husain is a 53 year old male who presents here today for Above Complaints. Patient here today for follow up on HTN and LE swelling. Reduced his dosage of amlodipine from 10 mg daily and increased his metoprolol which has helped with swelling. Wearing compression stockings daily now and keeping legs elevated when resting. BP at home 130's/80s. Patient also complaining of increased thirst, dry mouth, and frequent urination which started about 1-2 weeks ago. Getting up 7-8 times per night and has had some dribbling. Admits to urgency. Denies dysuria, hematuria, abdominal pain, nausea, vomiting, flank pain, weak stream, straining, confusion, fatigue. Past medical history, appointments, medications, allergies reviewed. Previous Medical History PAST MEDICAL HISTORY Diagnosis Date Achilles tendinitis of left lower extremity Achilles tendinitis, left leg Current moderate episode of major depressive disorder without prior episode (HCC) Elevated LFTs Essential hypertension Hepatic steatosis Hyperplastic colonic polyp Hypertension Mixed hyperlipidemia Obesity (BMI 30-39.9) Prediabetes Sleep apnea not using CPAP Tobacco use disorder Previous Surgical History PAST SURGICAL HISTORY Procedure Laterality Date ACHILLES TENDON SURGERY HX Left 01/27/2024 CHOLECYSTECTOMY Cholecystectomy COLONOSCOPY FLX DX W/COLLJ SPEC WHEN PFRMD 05/06/2020 Colonoscopy-repeat in 10 years DANTE PAST SURGICAL HISTORY OF 09/2020 sinoplasty Family History FAMILY HISTORY Problem Relation Age of Onset Melanoma Mother Fibromyalgia Mother Hypertension Father Coronary Artery Disease Maternal Grandfather CABG x4 Heart Paternal Grandfather [place] No Known Problems Daughter No Known Problems Son Patient Allergies ALLERGIES Allergen Reactions Lisinopril (Bulk) Cough Wellbutrin [Bupropi* Other: See Comments Anxiety Zoloft [Sertraline] Other: See Comments Sexual side effects. Current Medications Current Outpatient Medications on File Prior to Visit Medication Sig losartan (COZAAR) 100 mg tablet Take 1 tablet by mouth once daily. potassium chloride (K-TAB) 10 mEq tablet Take 1 tablet by mouth daily with breakfast. amLODIPine (NORVASC) 5 mg tablet Take 1 tablet by mouth once daily. metoprolol succinate ER (TOPROL XL) 100 mg Take 1 tablet by mouth once daily. DULoxetine (CYMBALTA) 20 mg capsule Take 1 capsule by mouth once daily. meloxicam (MOBIC) 15 mg tablet Take 1 tablet by mouth daily with food. atorvastatin (LIPITOR) 10 mg tablet Take 1 tablet by mouth daily at bedtime. For cholesterol. metFORMIN (GLUCOPHAGE) 500 mg tablet Take 1 tablet by mouth two times a day with meals. hydroCHLOROthiazide 50 mg tablet Take 1 tablet by mouth once daily. COMPOUNDED PRESCRIPTION Take by mouth once daily. Centrum Silver multivitamin aspirin 325 mg tablet Take 1 tablet by mouth two times a day for 28 days. No current facility-administered medications on file prior to visit. Social History Social History Tobacco Use Smoking status: Former Current packs/day: 0.00 Average packs/day: 0.5 packs/day for 7.1 years (3.5 ttl pk-yrs) Types: Cigarettes Start date: 11/08/2016 Quit date: 12/03/2023 Years since quittin.6 Passive exposure: Never Smokeless tobacco: Former Types: Snuff Quit date: 07/14/2015 Vaping Use Vaping status: current everyday user Substances: Flavoring Devices: Pre-filled or refillable cartridge Substance Use Topics Alcohol use: Yes Alcohol/week: 8.0 standard drinks of alcohol Types: 8 Standard drinks or equivalent per week Comment: 8 drinks most Tuesday Drug use: Not Currently Types: Marijuana Review of Symptoms REVIEW OF SYSTEMS See HPI EXAM: BP 132/80 Pulse 89 Resp 16 Wt 121.2 kg (267 lb 3.2 oz) SpO2 98% BMI 37.27 kg/m? General Appearance: Well appearing, alert, in no acute distress, well-hydrated, well nourished.. Skin: Skin color, texture, turgor normal, no suspicious rashes or lesions. Lungs: Lungs clear to auscultation. No wheezing, rhonchi, rales.. Heart: RRR without murmur, gallop, or rubs. No ectopy. Abdomen: Normal abdominal exam, Abdomen soft, non-tender. Bowel sounds normal. No masses, organomegaly, Negative CVA tenderness. Extremities: No deformities, edema, skin discoloration, clubbing or cyanosis. Good capillary refill. . Health Maintenance List Anxiety Screening Never done BP Controlled (<130/80) Never done Hepatitis B Vaccine(1 of 3 - 19+ 3-dose series) Never done DTaP,Tdap,Td Vaccine(1 - Tdap) due on 02/04/2018 Pneumococcal Vaccine: 50+(2 of 2 - PCV) due on 10/01/2019 Shingrix Vaccine(2 of 2) due on 06/03/2023 Annual PCP Team Chronic Disease Visit due on 08/03/2025 Diabetes Screening due on 04/11/2027 Lipid Screening due on 10/17/2028 Colorectal Cancer Screening due on 05/06/2030 Influenza Vaccine Completed Hepatitis C Screening Completed Covid-19 Vaccine Completed HIV Screening Discontinued Data reviewed Latest Ref Rng 03/16/2024 04/11/2024 WBC 3.70 - 11.00 k/uL 6.84 RBC 4.20 - 6.00 m/uL 4.64 Hemoglobin 13.0 - 17.0 g/dL 15.0 Hematocrit 39.0 - 51.0 % 44.8 MCV 80.0 - 100.0 fL 96.6 MCH 26.0 - 34.0 pg 32.3 MCHC 30.5 - 36.0 g/dL 33.5 RDW-CV 11.5 - 15.0 % 12.3 Platelet Count 150 - 400 k/uL 245 MPV 9.0 - 12.7 fL 9.4 Neut% % 45.5 Abs Neut (ANC) 1.45 - 7.50 k/uL 3.11 Lymph% % 39.2 Abs Lymph 1.00 - 4.00 k/uL 2.68 Mcnairy% % 8.3 Abs Mcnairy <0.87 k/uL 0.57 Eosin% % 5.7 Abs Eosin <0.46 k/uL 0.39 Baso% % 0.9 Abs Baso <0.11 k/uL 0.06 Immature Gran % % 0.4 IMMATURE GRANS (ABS) <0.10 k/uL 0.03 NRBC /100 WBC 0.0 Absolute nRBC <0.01 k/uL <0.01 DTYPE Auto Protein, Total 6.3 - 8.0 g/dL 6.9 6.8 Albumin 3.9 - 4.9 g/dL 4.6 4.3 Calcium 8.5 - 10.2 mg/dL 10.6 (H) 9.2 Bilirubin, Total 0.2 - 1.3 mg/dL 1.0 0.9 Alkaline Phosphatase 38 - 113 U/L 59 59 AST 14 - 40 U/L 57 (H) 46 (H) ALT 10 - 54 U/L 128 (H) 104 (H) Glucose 74 - 99 mg/dL 105 (H) 141 (H) BUN 9 - 24 mg/dL 18 18 Creatinine 0.73 - 1.22 mg/dL 0.88 0.80 Sodium 136 - 144 mmol/L 142 139 Potassium 3.7 - 5.1 mmol/L 4.4 4.1 Chloride 98 - 107 mmol/L 101 101 CO2 22 - 30 mmol/L 29 28 Anion Gap 8 - 15 mmol/L 12 10 eGFR >=60 mL/min/1.73m? 102 105 TSH 0.270 - 4.200 mIU/L 2.650 Vitamin D 25 Hydroxy 31.0 - 80.0 ng/mL 31.1 Vitamin B12 232 - 1,245 pg/mL 711 Legend: (H) High Latest Ref Rng 08/03/2024 GLUCOSE UA (POCT) Negative mg/dL >=1000 ! BILIRUBIN UA (POCT) Negative Negative KETONE UA (POCT) Negative mg/dL 40 ! SPECIFIC GRAVITY UA (POCT) 1.005 - 1.030 1.020 HEMOGLOBIN/BLOOD UA (POCT) Negative Trace-intact ! PH UA (POCT) 4.5 - 8.0 7.0 PROTEIN UA (POCT) Negative mg/dL 30 ! UROBILINOGEN UA (POCT) Normal E.U./dL 0.2 NITRITE UA (POCT) Negative Negative LEUKOCYTES UA (POCT) Negative Negative COLOR UA (POCT) Yellow CLARITY UA (POCT) Clear Glucose, Point of Care 74 - 99 mg/dL 390 ! Legend: ! Abnormal ASSESSMENT/PLAN: 1. Resistant hypertension - ICD9: 401.9, ICD10: I1A.0 (primary diagnosis) BP improved on current regimen. Obtain labs to r/o hyperaldosteronism and renal artery US. Recommend low sodium diet <2,000 mg per day, avoidance of NSAIDs. - ALBUMIN/CREATININE RATIO, URINE - ALDOSTERONE/DIRECT RENIN RATIO - US RENAL ARTERY [facility] 2. Urinary frequency - ICD9: 788.41, ICD10: R35.0 acute UA positive for glucose without infection. Glucose today consistent with DM. - UA DIP, URINE (POC) - COMPREHENSIVE METABOLIC PANEL - HEMOGLOBIN A1C - COMPLETE BLOOD COUNT AND DIFFERENTIAL 3. Glucosuria - ICD9: 791.5, ICD10: R81 - GLUCOSE, BLOOD (POC) - COMPREHENSIVE METABOLIC PANEL - HEMOGLOBIN A1C - COMPLETE BLOOD COUNT AND DIFFERENTIAL - ALBUMIN/CREATININE RATIO, URINE - METFORMIN 1,000 MG TABLET - GLIMEPIRIDE 2 MG TABLET 4. Hyperglycemia - ICD9: 790.29, ICD10: R73.9 Glucose consistent with DM. Will start on metformin and Glimepiride and check stat labs to r/o DKA. Red flags for re-assessment reviewed with patient in detail. Discussed low carb diet and given booklets for home. F/u in 2 weeks to discuss new dx further. - HOME BLOOD GLUCOSE MONITOR - BLOOD SUGAR DIAGNOSTIC STRIPS - LANCETS - BLOOD-GLUCOSE METER KIT 5. Diabetes mellitus type II (HCC) - ICD9: 250.00, ICD10: E11.9 - New diagnosis - Start metformin and glimepiride. - Statin prescribed - atorvastatin - Blood glucose monitoring on a twice daily schedule - Counseled on healthy diet and regular exercise - Discussed need for and benefit of weight loss. BMI 37.27 kg/(m2) - Discussed diabetic education issues of diabetes complications and monitoring required, hypoglycemic/hyperglycemic symptoms, and medication-specific side effects and monitoring - Follow up in 2 weeks, sooner should any other issues arise. - BLOOD-GLUCOSE METER KIT I spent a total of 40 minutes on the date of the service which included preparing to see the patient, [id number] patient care, completing clinical documentation, obtaining and/or reviewing separately obtained history, performing a medically appropriate examination, counseling and educating the patient/family/caregiver, ordering medications, tests, or procedures, independently interpreting results (not separately reported), and communicating results to the patient/family/caregiver. Ike Jack MD Allergies As of Date: 08/03/2024 Noted Allergy Reaction LISINOPRIL (BULK) 07/14/2017 3 - Cough WELLBUTRIN (BUPROPION) 09/06/2023 14 - Other: See Comments Comments: Anxiety ZOLOFT (SERTRALINE) 08/11/2020 14 - Other: See Comments Comments: Sexual side effects. Date Reviewed: 08/03/2024 Reviewed by: Lesia Gomez LPN - Fully Assessed Reason for Visit: Follow Up [171] Cmt: BP Primary Visit Diagnosis:Resistant hypertension [I1A.0] Other Visit Diagnoses:Urinary frequency [R35.0] Glucosuria [R81] Hyperglycemia [R73.9] Diabetes mellitus type II (HCC) [E11.9] Order(s):UA DIP, URINE (POC) [[id number]] Order #: [id number]. #:[id number] GLUCOSE, BLOOD (POC) [[id number]] Order #: [id number]. #:[id number] COMPREHENSIVE METABOLIC PANEL [SQCMP] Order #: [id number] FUTURE HEMOGLOBIN A1C [HAACD1P] Order #: [id number] FUTURE COMPLETE BLOOD COUNT AND DIFFERENTIAL [SQCBCDIF] Order #: [id number] FUTURE ALBUMIN/CREATININE RATIO, URINE [SQUACR] Order #: [id number] FUTURE ALDOSTERONE/DIRECT RENIN RATIO [SQALDREN] Order #: [id number] FUTURE US RENAL ARTERY [facility] [[id number]] Order #: [id number] FUTURE metFORMIN (GLUCOPHAGE) 1,000 mg tabletTake 1 tablet by mouth two times a day with meals.Disp: 180 tabletRfl: 1 blood sugar diagnostic (BLOOD GLUCOSE TEST) test stripTest blood sugar(s) 1 times daily. Dx: Type 2 DM - Uncontrolled E1165 Insulin: NoDisp: 50 StripRfl: 11 LancetsTest blood sugar(s) 1 times daily. Dx: Type 2 DM - Uncontrolled 65 Insulin: NoDisp: 100 EachRfl: 11 [] Blood-Glucose Meter monitoring kitGlucose Meter of Choice - Kit - Dx: Type 2 DM - Uncontrolled Disp: 1 EachRfl: 0 Prescriptions as of 08/09/2024 - glimepiride (AMARYL) 4 mg tablet Take 2 tablets by mouth once daily. - metFORMIN (GLUCOPHAGE) 1,000 mg tablet Take 1 tablet by mouth two times a day with meals. - blood sugar diagnostic (BLOOD GLUCOSE TEST) test strip Test blood sugar(s) 1 times daily. Dx: Type 2 DM - Uncontrolled E11.65 Insulin: No - Lancets Test blood sugar(s) 1 times daily. Dx: Type 2 DM - Uncontrolled E11.65 Insulin: No - losartan (COZAAR) 100 mg tablet Take 1 tablet by mouth once daily. - potassium chloride (K-TAB) 10 mEq tablet Take 1 tablet by mouth daily with breakfast. - amLODIPine (NORVASC) 5 mg tablet Take 1 tablet by mouth once daily. - metoprolol succinate ER (TOPROL XL) 100 mg Take 1 tablet by mouth once daily. - DULoxetine (CYMBALTA) 20 mg capsule Take 1 capsule by mouth once daily. - meloxicam (MOBIC) 15 mg tablet Take 1 tablet by mouth daily with food. - atorvastatin (LIPITOR) 10 mg tablet Take 1 tablet by mouth daily at bedtime. For cholesterol. - hydroCHLOROthiazide 50 mg tablet Take 1 tablet by mouth once daily. - aspirin 325 mg tablet Take 1 tablet by mouth two times a day for 28 days. - COMPOUNDED PRESCRIPTION Take by mouth once daily. 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 GLIMEPIRIDE 2 MG TABLET 30 t* 2 08/03/2024 08/07/2024 Route: ORAL Sig: Take 1 tablet by mouth once daily. BLOOD SUGAR DIAGNOSTIC STRIPS 50 S* 11 08/03/2024 Sig: Test blood sugar(s) 1 times daily. Dx: Type 2 DM - Uncontrolled E11.65 Insulin: No LANCETS 100 * 11 08/03/2024 Sig: Test blood sugar(s) 1 times daily. Dx: Type 2 DM - Uncontrolled E11.65 Insulin: No BLOOD-GLUCOSE METER KIT 1 Ea* 0 08/03/2024 08/04/2024 Sig: Glucose Meter of Choice - Kit - Dx: Type 2 DM - Uncontrolled E11.65 Medications Discontinued During This Encounter Prescriptions - metFORMIN (GLUCOPHAGE) 500 mg tablet (Discontinued) Take 1 tablet by mouth two times a day with meals. Disposition: Return in about 2 weeks (around 08/17/2024) for DM discussion. Follow-up and Disposition History for Encounter Date Provider Department Center 08/03/2024 [id number]-DOIONZCLUCI JACK [facility] Encounter Status:Closed by IKE JACK on 08/09/24 FIDENCIO Observed: 08/03/2024 12:00 AM Status: COMPLETED Source: [facility] Telephone ([facility]) HETAL HUSAIN ([id number]) 1970 M Date Time Provider Department 08/03/24 [facility]KE JACK [facility] During your visit today, we recorded the following information about you: Janette Rivera LPN 08/03/2024 12:55 PM Signed Electronic GRIFFIN completed and approved. Prior authorization approved Payer: Darren Note from payer: GRIFFIN Case: [id number], Status: Approved, Coverage Starts on: 08/03/2024 12:00:00 AM, Coverage Ends on: 08/03/2025 12:00:00 AM. Approval Details Authorization number: [id number] Authorized from August 03, 2024 to August 03, 2025 Electronic appeal: Not supported View History Notes Time User Attachment Attachment received from payer. 08/03/2024 12:26 PM C[facility], Rx Priorauth In Document Medication Being Authorized glimepiride (AMARYL) 2 mg tablet Take 1 tablet by mouth once daily. Dispense: 30 tablet Refills: 2 Start: 08/03/2024 End: 11/01/2024 Class: Normal Diagnoses: Glucosuria This order has been released to its destination. To be filled at: [address] [address] [facility] [phone] [id number] Allergies As of Date: 08/03/2024 Noted Allergy Reaction LISINOPRIL (BULK) 07/14/2017 3 - Cough WELLBUTRIN (BUPROPION) 09/06/2023 14 - Other: See Comments Comments: Anxiety ZOLOFT (SERTRALINE) 08/11/2020 14 - Other: See Comments Comments: Sexual side effects. Date Reviewed: 08/03/2024 Reviewed by: Lesia Gomez LPN - Fully Assessed Reason for Visit: Insurance Authorization [[id number]] Prescriptions as of 08/03/2024 - metFORMIN (GLUCOPHAGE) 1,000 mg tablet Take 1 tablet by mouth two times a day with meals. - glimepiride (AMARYL) 2 mg tablet Take 1 tablet by mouth once daily. - blood sugar diagnostic (BLOOD GLUCOSE TEST) test strip Test blood sugar(s) 1 times daily. Dx: Type 2 DM - Uncontrolled E11.65 Insulin: No - Lancets Test blood sugar(s) 1 times daily. Dx: Type 2 DM - Uncontrolled E11.65 Insulin: No - Blood-Glucose Meter monitoring kit Glucose Meter of Choice - Kit - Dx: Type 2 DM - Uncontrolled E11.65 - losartan (COZAAR) 100 mg tablet Take 1 tablet by mouth once daily. - potassium chloride (K-TAB) 10 mEq tablet Take 1 tablet by mouth daily with breakfast. - amLODIPine (NORVASC) 5 mg tablet Take 1 tablet by mouth once daily. - metoprolol succinate ER (TOPROL XL) 100 mg Take 1 tablet by mouth once daily. - DULoxetine (CYMBALTA) 20 mg capsule Take 1 capsule by mouth once daily. - meloxicam (MOBIC) 15 mg tablet Take 1 tablet by mouth daily with food. - atorvastatin (LIPITOR) 10 mg tablet Take 1 tablet by mouth daily at bedtime. For cholesterol. - hydroCHLOROthiazide 50 mg tablet Take 1 tablet by mouth once daily. - aspirin 325 mg tablet Take 1 tablet by mouth two times a day for 28 days. - COMPOUNDED PRESCRIPTION Take by mouth once daily. 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] 05/20/2017 Hypertension [I10] Obesity (BMI 30-39.9) [E66.9] Sleep apnea [G47.30] Current moderate episode of major depressive di* Vertigo [R42] 08/11/2020 Mixed hyperlipidemia [E78.2] Prediabetes [R73.03] Achilles tendinitis, left leg [M76.62] 04/08/2023 Calcaneal spur of foot, left [M77.32] 04/29/2023 Former smoker [Z87.891] 08/19/2023 Obesity, Class I, BMI 30-34.9 [E66.811] 2023 Encounter Status:Closed by JANETTE RIVERA on 08/03/24 FIDENCIO Observed: 08/03/2024 12:00 AM Status: COMPLETED Source: [facility] HETAL HUSAIN ([id number]) 1970 M Date Time Provider Department 08/03/24 IKE JACK During your visit today, we recorded the following information about you: Ike Jack MD 08/03/2024 1:39 PM Signed Patient's glucose is high in the 400's, but does not show signs of DKA. No signs of infection with CBC. Increase metformin and start Glimepiride today as ordered. Would have him check sugar before bed with goal of >150 and again in the morning with goal <130. If sugar is high tomorrow morning >200 on 2 mg of glimepiride, I would have him increase to 4 mg daily. Please update our office on Tuesday with fasting glucose readings. Neena Davalos LPN 08/03/2024 2:15 PM Signed Telephone call placed to patient. Talked to patient and . Made aware of providers message and and medication changes and instructions below. Voices understanding. Neena Davalos LPN Allergies As of Date: 08/03/2024 Noted Allergy Reaction LISINOPRIL (BULK) 07/14/2017 3 - Cough WELLBUTRIN (BUPROPION) 09/06/2023 14 - Other: See Comments Comments: Anxiety ZOLOFT (SERTRALINE) 08/11/2020 14 - Other: See Comments Comments: Sexual side effects. Date Reviewed: 08/03/2024 Reviewed by: Lesia Gomez LPN - Fully Assessed Reason for Visit: Results [95] Prescriptions as of 08/03/2024 - metFORMIN (GLUCOPHAGE) 1,000 mg tablet Take 1 tablet by mouth two times a day with meals. - glimepiride (AMARYL) 2 mg tablet Take 1 tablet by mouth once daily. - blood sugar diagnostic (BLOOD GLUCOSE TEST) test strip Test blood sugar(s) 1 times daily. Dx: Type 2 DM - Uncontrolled E11.65 Insulin: No - Lancets Test blood sugar(s) 1 times daily. Dx: Type 2 DM - Uncontrolled E11.65 Insulin: No - Blood-Glucose Meter monitoring kit Glucose Meter of Choice - Kit - Dx: Type 2 DM - Uncontrolled E11.65 - losartan (COZAAR) 100 mg tablet Take 1 tablet by mouth once daily. - potassium chloride (K-TAB) 10 mEq tablet Take 1 tablet by mouth daily with breakfast. - amLODIPine (NORVASC) 5 mg tablet Take 1 tablet by mouth once daily. - metoprolol succinate ER (TOPROL XL) 100 mg Take 1 tablet by mouth once daily. - DULoxetine (CYMBALTA) 20 mg capsule Take 1 capsule by mouth once daily. - meloxicam (MOBIC) 15 mg tablet Take 1 tablet by mouth daily with food. - atorvastatin (LIPITOR) 10 mg tablet Take 1 tablet by mouth daily at bedtime. For cholesterol. - hydroCHLOROthiazide 50 mg tablet Take 1 tablet by mouth once daily. - aspirin 325 mg tablet Take 1 tablet by mouth two times a day for 28 days. - COMPOUNDED PRESCRIPTION Take by mouth once daily. 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] 05/20/2017 Hypertension [I10] Obesity (BMI 30-39.9) [E66.9] Sleep apnea [G47.30] Current moderate episode of major depressive di* Vertigo [R42] 08/11/2020 Mixed hyperlipidemia [E78.2] Prediabetes [R73.03] Achilles tendinitis, left leg [M76.62] 04/08/2023 Calcaneal spur of foot, left [M77.32] 04/29/2023 Former smoker [Z87.891] 08/19/2023 Obesity, Class I, BMI 30-34.9 [E66.811] 2023 Encounter Status:Closed by NEENA DAVALOS on 08/03/24 LEG VEIN DVT UNL VAS LAB Observed: 1:25 PM Status: F Source: [facility]-Invasive [facility] Lower Extremity Venous Duplex Unilateral - Left Date of service/time: 07/17/2024 1:25:27 PM Name: HETAL HUSAIN Date of : 1970 Age: 53 years Gender: M Clinical Indication Lower extremity swelling. TECHNIQUE -------- A venous duplex ultrasound examination was performed, including grayscale imaging with compression maneuvers and color Doppler and spectral Doppler examination with augmentation maneuvers and response to respiration of the below mentioned veins. FINDINGS -------- RIGHT SIDE Common femoral vein Doppler: normal flow. LEFT SIDE Distal external iliac vein Doppler: normal flow. Compression: normal. Common femoral vein Doppler: normal flow. Compression: normal. Femoral vein Doppler: normal flow. Compression: normal. Popliteal vein Doppler: normal flow. Compression: normal. Posterior tibial veins Compression: normal. Peroneal veins Compression: normal. Great saphenous vein Compression: normal. Small saphenous vein Compression: normal. IMPRESSION RIGHT SIDE - DEEP VEINS Spontaneous and respirophasic flow noted in the common femoral vein. LEFT SIDE - DEEP VEINS Negative for acute deep vein thrombosis. LEFT SIDE - SUPERFICIAL VEINS Negative for superficial thrombophlebitis in the great saphenous vein and small saphenous vein. Technologist: Jacquie Frederick RVT, [facility] Ordering physician: IKE JACK Interpreting physician: YOLANDE Hernández DO Final CC [employer] [facility] Image : [id number] See Link below for Image PROGRESS Observed: 07/17/2024 8:25 AM Status: COMPLETED Source: [facility] ID: [id number] Author: IKE JACK MD Service: ? Author Type: Physician Type: Progress Notes Filed: 07/17/2024 11:51 Note Text: Chief Complaint Patient presents with: Edema: X 2-3 weeks BLE- denies pain or redness. concerned related to a medication. Refill Request HPI Hetal Husain is a 53 year old male who presents here today for Above Complaints. Patient complaining of bilateral leg swelling, left worse than right in the last 2-3 weeks. Noted that his metoprolol dosage was increased to 75 mg in May and amlodipine was increased from 5 to 10 mg around the same time for uncontrolled HTN. States that he has not been eating much salt in his diet. Has compression stockings at home, but has not been wearing them. Not exercising regularly. Denies LE pain, erythema, warmth to touch, chest pain, SOB, palpitations. Echo completed in March which was normal. Has not had surgery since January for his left achilles tendinitis. No long car trips or plane rides. No hospitalizations or immobilization. No personal or family history of clotting. Past medical history, appointments, medications, allergies reviewed. Previous Medical History PAST MEDICAL HISTORY Diagnosis Date Achilles tendinitis of left lower extremity Achilles tendinitis, left leg Current moderate episode of major depressive disorder without prior episode (HCC) Elevated LFTs Essential hypertension Hepatic steatosis Hyperplastic colonic polyp Hypertension Mixed hyperlipidemia Obesity (BMI 30-39.9) Prediabetes Sleep apnea not using CPAP Tobacco use disorder Previous Surgical History PAST SURGICAL HISTORY Procedure Laterality Date ACHILLES TENDON SURGERY HX Left 01/27/2024 CHOLECYSTECTOMY Cholecystectomy COLONOSCOPY FLX DX W/COLLJ SPEC WHEN PFRMD 05/06/2020 Colonoscopy-repeat in 10 years JOSÉALFREDO PAST SURGICAL HISTORY OF 09/2020 sinoplasty Family History FAMILY HISTORY Problem Relation Age of Onset Melanoma Mother Fibromyalgia Mother Hypertension Father Coronary Artery Disease Maternal Grandfather CABG x4 Heart Paternal Grandfather [place] No Known Problems Daughter No Known Problems Son Patient Allergies ALLERGIES Allergen Reactions Lisinopril (Bulk) Cough Wellbutrin [Bupropi* Other: See Comments Anxiety Zoloft [Sertraline] Other: See Comments Sexual side effects. Current Medications Current Outpatient Medications on File Prior to Visit Medication Sig DULoxetine (CYMBALTA) 20 mg capsule Take 1 capsule by mouth once daily. meloxicam (MOBIC) 15 mg tablet Take 1 tablet by mouth daily with food. metoprolol succinate ER (TOPROL XL) 25 mg 24 hr tablet Take one tablet daily along with 50 mg tablet to equal 75 mg daily amLODIPine (NORVASC) 10 mg tablet Take 1 tablet by mouth once daily. atorvastatin (LIPITOR) 10 mg tablet Take 1 tablet by mouth daily at bedtime. For cholesterol. potassium chloride (K-TAB) 10 mEq tablet Take 1 tablet by mouth daily with breakfast. metoprolol succinate ER (TOPROL XL) 50 mg 24 hr tablet Take 1 tablet by mouth once daily. metFORMIN (GLUCOPHAGE) 500 mg tablet Take 1 tablet by mouth two times a day with meals. losartan (COZAAR) 100 mg tablet Take 1 tablet by mouth once daily. hydroCHLOROthiazide 50 mg tablet Take 1 tablet by mouth once daily. COMPOUNDED PRESCRIPTION Take by mouth once daily. Centrum Silver multivitamin aspirin 325 mg tablet Take 1 tablet by mouth two times a day for 28 days. No current facility-administered medications on file prior to visit. Social History Social History Tobacco Use Smoking status: Former Current packs/day: 0.00 Average packs/day: 0.5 packs/day for 7.1 years (3.5 ttl pk-yrs) Types: Cigarettes Start date: 11/08/2016 Quit date: 12/03/2023 Years since quittin.6 Passive exposure: Never Smokeless tobacco: Former Types: Snuff Quit date: 07/14/2015 Vaping Use Vaping status: current everyday user Substances: Flavoring Devices: Pre-filled or refillable cartridge Substance Use Topics Alcohol use: Yes Alcohol/week: 8.0 standard drinks of alcohol Types: 8 Standard drinks or equivalent per week Comment: 8 drinks most Tuesday Drug use: Not Currently Types: Marijuana Review of Symptoms REVIEW OF SYSTEMS See HPI EXAM: BP 138/82 Pulse 87 Resp 16 Wt 125.6 kg (276 lb 12.8 oz) SpO2 98% BMI 38.61 kg/m? General Appearance: Well appearing, alert, in no acute distress, well-hydrated, well nourished.. Skin: Skin color, texture, turgor normal, no suspicious rashes or lesions. Lungs: Lungs clear to auscultation. No wheezing, rhonchi, rales.. Heart: RRR without murmur, gallop, or rubs. No ectopy. Extremities: Left leg swollen to knee compared to right. 2+ edema on left, trace on right LE. Left LE measuring 2.5 cm larger than right. Non tender. No erythema. Negative hohmans. Health Maintenance List Anxiety Screening Never done BP Controlled (<130/80) Never done Hepatitis B Vaccine(1 of 3 - 19+ 3-dose series) Never done DTaP,Tdap,Td Vaccine(1 - Tdap) due on 02/04/2018 Pneumococcal Vaccine: 50+(2 of 2 - PCV) due on 10/01/2019 Shingrix Vaccine(2 of 2) due on 06/03/2023 Annual PCP Team Chronic Disease Visit due on 05/18/2025 Diabetes Screening due on 04/11/2027 Lipid Screening due on 10/17/2028 Colorectal Cancer Screening due on 05/06/2030 Influenza Vaccine Completed Hepatitis C Screening Completed Covid-19 Vaccine Completed HIV Screening Discontinued Data reviewed Latest Ref Rng 03/16/2024 04/11/2024 WBC 3.70 - 11.00 k/uL 6.84 RBC 4.20 - 6.00 m/uL 4.64 Hemoglobin 13.0 - 17.0 g/dL 15.0 Hematocrit 39.0 - 51.0 % 44.8 MCV 80.0 - 100.0 fL 96.6 MCH 26.0 - 34.0 pg 32.3 MCHC 30.5 - 36.0 g/dL 33.5 RDW-CV 11.5 - 15.0 % 12.3 Platelet Count 150 - 400 k/uL 245 MPV 9.0 - 12.7 fL 9.4 Neut% % 45.5 Abs Neut (ANC) 1.45 - 7.50 k/uL 3.11 Lymph% % 39.2 Abs Lymph 1.00 - 4.00 k/uL 2.68 Mcnairy% % 8.3 Abs Mcnairy <0.87 k/uL 0.57 Eosin% % 5.7 Abs Eosin <0.46 k/uL 0.39 Baso% % 0.9 Abs Baso <0.11 k/uL 0.06 Immature Gran % % 0.4 IMMATURE GRANS (ABS) <0.10 k/uL 0.03 NRBC /100 WBC 0.0 Absolute nRBC <0.01 k/uL <0.01 DTYPE Auto Protein, Total 6.3 - 8.0 g/dL 6.9 6.8 Albumin 3.9 - 4.9 g/dL 4.6 4.3 Calcium 8.5 - 10.2 mg/dL 10.6 (H) 9.2 Bilirubin, Total 0.2 - 1.3 mg/dL 1.0 0.9 Alkaline Phosphatase 38 - 113 U/L 59 59 AST 14 - 40 U/L 57 (H) 46 (H) ALT 10 - 54 U/L 128 (H) 104 (H) Glucose 74 - 99 mg/dL 105 (H) 141 (H) BUN 9 - 24 mg/dL 18 18 Creatinine 0.73 - 1.22 mg/dL 0.88 0.80 Sodium 136 - 144 mmol/L 142 139 Potassium 3.7 - 5.1 mmol/L 4.4 4.1 Chloride 98 - 107 mmol/L 101 101 CO2 22 - 30 mmol/L 29 28 Anion Gap 8 - 15 mmol/L 12 10 eGFR >=60 mL/min/1.73m? 102 105 TSH 0.270 - 4.200 mIU/L 2.650 Vitamin D 25 Hydroxy 31.0 - 80.0 ng/mL 31.1 Vitamin B12 232 - 1,245 pg/mL 711 Legend: (H) High ASSESSMENT/PLAN: 1. Localized swelling of left lower leg - ICD9: 782.2, ICD10: R22.42 (primary diagnosis) Obtain STAT US to rule out DVT. If negative, will consider reducing his amlodipine to 5 mg and increasing metoprolol XL dosage with recheck in 2 weeks on HTN and swelling. Will have him wear compression stockings at home as well. If positive, will start anticoagulation x 3 months as discussed for non provoked DVT. Red flags for re-assessment reviewed with patient in detail. - US LEG VEIN DVT UNL VAS LAB 2. Resistant hypertension - ICD9: 401.9, ICD10: I1A.0 Consider additional workup at future OV. Ike Jack MD CNOV Observed: 07/17/2024 8:20 AM Status: COMPLETED Source: [facility] Office Visit ([facility]) HETAL HUSAIN ([id number]) 1970 M Date Time Provider Department 07/17/24 8:20 AM IKE JACK During your visit today, we recorded the following information about you: Pulse Respiration Blood pressure Weight 87/minute 16/minute 138/82 125.6 kg Ike aJck MD 07/17/2024 11:51 AM Signed Chief Complaint Patient presents with: Edema: X 2-3 weeks BLE- denies pain or redness. concerned related to a medication. Refill Request HPI Hetal Husain is a 53 year old male who presents here today for Above Complaints. Patient complaining of bilateral leg swelling, left worse than right in the last 2-3 weeks. Noted that his metoprolol dosage was increased to 75 mg in May and amlodipine was increased from 5 to 10 mg around the same time for uncontrolled HTN. States that he has not been eating much salt in his diet. Has compression stockings at home, but has not been wearing them. Not exercising regularly. Denies LE pain, erythema, warmth to touch, chest pain, SOB, palpitations. Echo completed in March which was normal. Has not had surgery since January for his left achilles tendinitis. No long car trips or plane rides. No hospitalizations or immobilization. No personal or family history of clotting. Past medical history, appointments, medications, allergies reviewed. Previous Medical History PAST MEDICAL HISTORY Diagnosis Date Achilles tendinitis of left lower extremity Achilles tendinitis, left leg Current moderate episode of major depressive disorder without prior episode (HCC) Elevated LFTs Essential hypertension Hepatic steatosis Hyperplastic colonic polyp Hypertension Mixed hyperlipidemia Obesity (BMI 30-39.9) Prediabetes Sleep apnea not using CPAP Tobacco use disorder Previous Surgical History PAST SURGICAL HISTORY Procedure Laterality Date ACHILLES TENDON SURGERY HX Left 01/27/2024 CHOLECYSTECTOMY Cholecystectomy COLONOSCOPY FLX DX W/COLLJ SPEC WHEN PFRMD 05/06/2020 Colonoscopy-repeat in 10 years DANTE PAST SURGICAL HISTORY OF 09/2020 sinoplasty Family History FAMILY HISTORY Problem Relation Age of Onset Melanoma Mother Fibromyalgia Mother Hypertension Father Coronary Artery Disease Maternal Grandfather CABG x4 Heart Paternal Grandfather [place] No Known Problems Daughter No Known Problems Son Patient Allergies ALLERGIES Allergen Reactions Lisinopril (Bulk) Cough Wellbutrin [Bupropi* Other: See Comments Anxiety Zoloft [Sertraline] Other: See Comments Sexual side effects. Current Medications Current Outpatient Medications on File Prior to Visit Medication Sig DULoxetine (CYMBALTA) 20 mg capsule Take 1 capsule by mouth once daily. meloxicam (MOBIC) 15 mg tablet Take 1 tablet by mouth daily with food. metoprolol succinate ER (TOPROL XL) 25 mg 24 hr tablet Take one tablet daily along with 50 mg tablet to equal 75 mg daily amLODIPine (NORVASC) 10 mg tablet Take 1 tablet by mouth once daily. atorvastatin (LIPITOR) 10 mg tablet Take 1 tablet by mouth daily at bedtime. For cholesterol. potassium chloride (K-TAB) 10 mEq tablet Take 1 tablet by mouth daily with breakfast. metoprolol succinate ER (TOPROL XL) 50 mg 24 hr tablet Take 1 tablet by mouth once daily. metFORMIN (GLUCOPHAGE) 500 mg tablet Take 1 tablet by mouth two times a day with meals. losartan (COZAAR) 100 mg tablet Take 1 tablet by mouth once daily. hydroCHLOROthiazide 50 mg tablet Take 1 tablet by mouth once daily. COMPOUNDED PRESCRIPTION Take by mouth once daily. Centrum Silver multivitamin aspirin 325 mg tablet Take 1 tablet by mouth two times a day for 28 days. No current facility-administered medications on file prior to visit. Social History Social History Tobacco Use Smoking status: Former Current packs/day: 0.00 Average packs/day: 0.5 packs/day for 7.1 years (3.5 ttl pk-yrs) Types: Cigarettes Start date: 11/08/2016 Quit date: 12/03/2023 Years since quittin.6 Passive exposure: Never Smokeless tobacco: Former Types: Snuff Quit date: 07/14/2015 Vaping Use Vaping status: current everyday user Substances: Flavoring Devices: Pre-filled or refillable cartridge Substance Use Topics Alcohol use: Yes Alcohol/week: 8.0 standard drinks of alcohol Types: 8 Standard drinks or equivalent per week Comment: 8 drinks most Tuesday Drug use: Not Currently Types: Marijuana Review of Symptoms REVIEW OF SYSTEMS See HPI EXAM: BP 138/82 Pulse 87 Resp 16 Wt 125.6 kg (276 lb 12.8 oz) SpO2 98% BMI 38.61 kg/m? General Appearance: Well appearing, alert, in no acute distress, well-hydrated, well nourished.. Skin: Skin color, texture, turgor normal, no suspicious rashes or lesions. Lungs: Lungs clear to auscultation. No wheezing, rhonchi, rales.. Heart: RRR without murmur, gallop, or rubs. No ectopy. Extremities: Left leg swollen to knee compared to right. 2+ edema on left, trace on right LE. Left LE measuring 2.5 cm larger than right. Non tender. No erythema. Negative hohmans. Health Maintenance List Anxiety Screening Never done BP Controlled (<130/80) Never done Hepatitis B Vaccine(1 of 3 - 19+ 3-dose series) Never done DTaP,Tdap,Td Vaccine(1 - Tdap) due on 02/04/2018 Pneumococcal Vaccine: 50+(2 of 2 - PCV) due on 10/01/2019 Shingrix Vaccine(2 of 2) due on 06/03/2023 Annual PCP Team Chronic Disease Visit due on 05/18/2025 Diabetes Screening due on 04/11/2027 Lipid Screening due on 10/17/2028 Colorectal Cancer Screening due on 05/06/2030 Influenza Vaccine Completed Hepatitis C Screening Completed Covid-19 Vaccine Completed HIV Screening Discontinued Data reviewed Latest Ref Rng 03/16/2024 04/11/2024 WBC 3.70 - 11.00 k/uL 6.84 RBC 4.20 - 6.00 m/uL 4.64 Hemoglobin 13.0 - 17.0 g/dL 15.0 Hematocrit 39.0 - 51.0 % 44.8 MCV 80.0 - 100.0 fL 96.6 MCH 26.0 - 34.0 pg 32.3 MCHC 30.5 - 36.0 g/dL 33.5 RDW-CV 11.5 - 15.0 % 12.3 Platelet Count 150 - 400 k/uL 245 MPV 9.0 - 12.7 fL 9.4 Neut% % 45.5 Abs Neut (ANC) 1.45 - 7.50 k/uL 3.11 Lymph% % 39.2 Abs Lymph 1.00 - 4.00 k/uL 2.68 Mcnairy% % 8.3 Abs Mcnairy <0.87 k/uL 0.57 Eosin% % 5.7 Abs Eosin <0.46 k/uL 0.39 Baso% % 0.9 Abs Baso <0.11 k/uL 0.06 Immature Gran % % 0.4 IMMATURE GRANS (ABS) <0.10 k/uL 0.03 NRBC /100 WBC 0.0 Absolute nRBC <0.01 k/uL <0.01 DTYPE Auto Protein, Total 6.3 - 8.0 g/dL 6.9 6.8 Albumin 3.9 - 4.9 g/dL 4.6 4.3 Calcium 8.5 - 10.2 mg/dL 10.6 (H) 9.2 Bilirubin, Total 0.2 - 1.3 mg/dL 1.0 0.9 Alkaline Phosphatase 38 - 113 U/L 59 59 AST 14 - 40 U/L 57 (H) 46 (H) ALT 10 - 54 U/L 128 (H) 104 (H) Glucose 74 - 99 mg/dL 105 (H) 141 (H) BUN 9 - 24 mg/dL 18 18 Creatinine 0.73 - 1.22 mg/dL 0.88 0.80 Sodium 136 - 144 mmol/L 142 139 Potassium 3.7 - 5.1 mmol/L 4.4 4.1 Chloride 98 - 107 mmol/L 101 101 CO2 22 - 30 mmol/L 29 28 Anion Gap 8 - 15 mmol/L 12 10 eGFR >=60 mL/min/1.73m? 102 105 TSH 0.270 - 4.200 mIU/L 2.650 Vitamin D 25 Hydroxy 31.0 - 80.0 ng/mL 31.1 Vitamin B12 232 - 1,245 pg/mL 711 Legend: (H) High ASSESSMENT/PLAN: 1. Localized swelling of left lower leg - ICD9: 782.2, ICD10: R22.42 (primary diagnosis) Obtain STAT US to rule out DVT. If negative, will consider reducing his amlodipine to 5 mg and increasing metoprolol XL dosage with recheck in 2 weeks on HTN and swelling. Will have him wear compression stockings at home as well. If positive, will start anticoagulation x 3 months as discussed for non provoked DVT. Red flags for re-assessment reviewed with patient in detail. - US LEG VEIN DVT UNL VAS LAB 2. Resistant hypertension - ICD9: 401.9, ICD10: I1A.0 Consider additional workup at future OV. Ike Jack MD Allergies As of Date: 07/17/2024 Noted Allergy Reaction LISINOPRIL (BULK) 07/14/2017 3 - Cough WELLBUTRIN (BUPROPION) 09/06/2023 14 - Other: See Comments Comments: Anxiety ZOLOFT (SERTRALINE) 08/11/2020 14 - Other: See Comments Comments: Sexual side effects. Date Reviewed: 07/17/2024 Reviewed by: Lesia Gomez LPN - Fully Assessed Reason for Visit: Edema [39] Cmt: X 2-3 weeks BLE- denies pain or redness. concerned related to a medication. Refill Request [94] Primary Visit Diagnosis:Localized swelling of left lower leg [R22.42] Other Visit Diagnosis:Resistant hypertension [I1A.0] Order(s):US LEG VEIN DVT UNL VAS LAB [[id number]] Order #: [id number] FUTURE Prescriptions as of 07/17/2024 - losartan (COZAAR) 100 mg tablet Take 1 tablet by mouth once daily. - metoprolol succinate ER (TOPROL XL) 50 mg 24 hr tablet Take 1 tablet by mouth once daily. - potassium chloride (K-TAB) 10 mEq tablet Take 1 tablet by mouth daily with breakfast. - DULoxetine (CYMBALTA) 20 mg capsule Take 1 capsule by mouth once daily. - meloxicam (MOBIC) 15 mg tablet Take 1 tablet by mouth daily with food. - metoprolol succinate ER (TOPROL XL) 25 mg 24 hr tablet Take one tablet daily along with 50 mg tablet to equal 75 mg daily - amLODIPine (NORVASC) 10 mg tablet Take 1 tablet by mouth once daily. - atorvastatin (LIPITOR) 10 mg tablet Take 1 tablet by mouth daily at bedtime. For cholesterol. - metFORMIN (GLUCOPHAGE) 500 mg tablet Take 1 tablet by mouth two times a day with meals. - hydroCHLOROthiazide 50 mg tablet Take 1 tablet by mouth once daily. - aspirin 325 mg tablet Take 1 tablet by mouth two times a day for 28 days. - COMPOUNDED PRESCRIPTION Take by mouth once daily. 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] 05/20/2017 Hypertension [I10] Obesity (BMI 30-39.9) [E66.9] Sleep apnea [G47.30] Current moderate episode of major depressive di* Vertigo [R42] 08/11/2020 Mixed hyperlipidemia [E78.2] Prediabetes [R73.03] Achilles tendinitis, left leg [M76.62] 04/08/2023 Calcaneal spur of foot, left [M77.32] 04/29/2023 Former smoker [Z87.891] 08/19/2023 Obesity, Class I, BMI 30-34.9 [E66.811] 2023 Encounter Status:Closed by IKE JACK on 07/17/24 FIDENCIO Observed: 07/17/2024 12:00 AM Status: COMPLETED Source: [facility] Telephone ([facility]) HETAL HUSAIN ([id number]) 1970 M Date Time Provider Department 07/17/24 IKE JACK During your visit today, we recorded the following information about you: Leanne Drake LPN 07/17/2024 2:25 PM Signed ----- Message from Ike Jack MD sent at 07/17/2024 1:54 PM EST ----- Ultrasound is negative for DVT in his left leg. His swelling may be related to history of surgery on the left side with higher dose of amlodipine. Would recommend wearing compression stockings daily, reducing dosage of amlodipine to 5 mg, and increasing his metoprolol XL to 100 mg daily to help with swelling and control BP. If agreeable, will send rx to requested pharmacy. Will need OV in 2-3 weeks to recheck BP and swelling. Leanne Drake LPN 07/17/2024 2:33 PM Signed Spoke with pt and information listed below given. Pt verbalizes understanding. Okay to send new rxs. MARVA Byers Christopher B, MD 07/17/2024 3:02 PM Signed New rx sent. F/u in 2 weeks. Neena Davalos LPN 07/17/2024 4:47 PM Signed Patient notified. BP check scheduled for 08/03/2024 at 11am. Neena Davalos LPN Allergies As of Date: 07/17/2024 Noted Allergy Reaction LISINOPRIL (BULK) 07/14/2017 3 - Cough WELLBUTRIN (BUPROPION) 09/06/2023 14 - Other: See Comments Comments: Anxiety ZOLOFT (SERTRALINE) 08/11/2020 14 - Other: See Comments Comments: Sexual side effects. Date Reviewed: 07/17/2024 Reviewed by: Lesia Gomez LPN - Fully Assessed Reason for Visit: Results [95] Visit Diagnosis:Essential hypertension [I10] Order(s):amLODIPine (NORVASC) 5 mg tabletTake 1 tablet by mouth once daily.Disp: 90 tabletRfl: 1 metoprolol succinate ER (TOPROL XL) 100 mgTake 1 tablet by mouth once daily.Disp: 90 tabletRfl: 1 Prescriptions as of 07/17/2024 - losartan (COZAAR) 100 mg tablet Take 1 tablet by mouth once daily. - potassium chloride (K-TAB) 10 mEq tablet Take 1 tablet by mouth daily with breakfast. - amLODIPine (NORVASC) 5 mg tablet Take 1 tablet by mouth once daily. - metoprolol succinate ER (TOPROL XL) 100 mg Take 1 tablet by mouth once daily. - DULoxetine (CYMBALTA) 20 mg capsule Take 1 capsule by mouth once daily. - meloxicam (MOBIC) 15 mg tablet Take 1 tablet by mouth daily with food. - atorvastatin (LIPITOR) 10 mg tablet Take 1 tablet by mouth daily at bedtime. For cholesterol. - metFORMIN (GLUCOPHAGE) 500 mg tablet Take 1 tablet by mouth two times a day with meals. - hydroCHLOROthiazide 50 mg tablet Take 1 tablet by mouth once daily. - aspirin 325 mg tablet Take 1 tablet by mouth two times a day for 28 days. - COMPOUNDED PRESCRIPTION Take by mouth once daily. 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 METOPROLOL SUCCINATE ER 100 MG TABLE* 90 t* 1 07/17/2024 01/13/2025 Route: ORAL Sig: Take 1 tablet by mouth once daily. Medications Discontinued During This Encounter Prescriptions - metoprolol succinate ER (TOPROL XL) 25 mg 24 hr tablet (Discontinued) Take one tablet daily along with 50 mg tablet to equal 75 mg daily - amLODIPine (NORVASC) 10 mg tablet (Discontinued) Take 1 tablet by mouth once daily. - metoprolol succinate ER (TOPROL XL) 50 mg 24 hr tablet (Discontinued) Take 1 tablet by mouth once daily. Encounter Status:Closed by LEANNE DRAKE on 07/17/24 CNTHERAPY Observed: 05/24/2024 7:45 AM Status: COMPLETED Source: [facility] OT/PT/Speech Visit (PTWS) HETAL HUSAIN ([id number]) 1970 M Date Time Provider Department 05/24/24 7:45 AM THAD SRIVASTAVA PTWS Date Time Provider Department Center 05/24/2024 7:45 AM [id number], [facility] PTWS Yony Ramirez Reason for Visit: Physical Therapy [503] PT Discharge [752] Primary Visit Diagnosis:Achilles tendinitis, left leg [M76.62] Allergies As of Date: 05/24/2024 Noted Allergy Reaction LISINOPRIL (BULK) 07/14/2017 3 - Cough WELLBUTRIN (BUPROPION) 09/06/2023 14 - Other: See Comments Comments: Anxiety ZOLOFT (SERTRALINE) 08/11/2020 14 - Other: See Comments Comments: Sexual side effects. Date Reviewed: 05/18/2024 Reviewed by: Neena Davalos LPN - Fully Assessed Prescriptions as of 11/06/2024 - metFORMIN (GLUCOPHAGE) 1,000 mg tablet Take 1 tablet by mouth two times a day with meals. - glimepiride (AMARYL) 4 mg tablet Take 2 tablets by mouth once daily. - hydroCHLOROthiazide 50 mg tablet Take 1 tablet by mouth once daily. - blood sugar diagnostic (BLOOD GLUCOSE TEST) test strip Test blood sugar(s) 1 times daily. Dx: Type 2 DM - Uncontrolled E11.65 Insulin: No - Lancets Test blood sugar(s) 1 times daily. Dx: Type 2 DM - Uncontrolled E11.65 Insulin: No - losartan (COZAAR) 100 mg tablet Take 1 tablet by mouth once daily. - potassium chloride (K-TAB) 10 mEq tablet Take 1 tablet by mouth daily with breakfast. - amLODIPine (NORVASC) 5 mg tablet Take 1 tablet by mouth once daily. - metoprolol succinate ER (TOPROL XL) 100 mg Take 1 tablet by mouth once daily. - DULoxetine (CYMBALTA) 20 mg capsule Take 1 capsule by mouth once daily. - meloxicam (MOBIC) 15 mg tablet Take 1 tablet by mouth daily with food. - atorvastatin (LIPITOR) 10 mg tablet Take 1 tablet by mouth daily at bedtime. For cholesterol. - COMPOUNDED PRESCRIPTION Take by mouth once daily. Centrum Silver multivitamin PROGRESS Observed: 05/24/2024 7:38 AM Status: COMPLETED Source: [facility] ID: [id number] Author: THAD SRIVASTAVA PT Service: ? Author Type: Physical Therapist Type: Progress Notes Filed: 05/24/2024 08:20 Note Text: Episode Visit Count: 6 Therapist That Will Accept/Oversee The Plan Of Care: Thad Srivastava PT Start of Care Date: 03/29/24 Onset Date: 10/09/22 Patient Identified by Name and Date of : Yes REHABILITATION AND SPORTS THERAPY PHYSICAL THERAPY TREATMENT NOTE ASSESSMENT: Hetal Husain tolerated the session with expected muscle soreness. He demonstrated good form with . The patient will continue to benefit from ongoing skilled physical therapy to progress toward set goals and for reassessment by supervising therapist. PLAN FOR NEXT VISIT: PN SUBJECTIVE: Feels like he is close to rounding the corner for the better. Walked through [place] without pain. The pain is getting less and less. Pain: Pain Pain Level: 2 Pain Location: Heel - Left OBJECTIVE MEASURES WITH LEVEL OF FUNCTION: Gait WNL TREATMENT: Therapeutic Exercise: 1: SciFit x 5 min, seat 15 (1:1 time spent and subjective taken) 2: B heel raise 4 x 10, 70% WB surgical side during eccentric phase 3: Standing Calf stretch UE support on wall 3 x 30 sec 4: Standing soleus stretch x 30 sec 5: Squats x 10 Skilled Intervention: Patient was educated in proper exercise technique and purpose for exercises. Provided written instruction for home exercise program to facilitate proper performance and compliance. Correct performance of therapeutic exercises was facilitated with verbal and visual cuing. Neuromuscular Re-Education: 1: SL stance 3 x 30 sec 2: Lateral stepping over BOSU (round) x [address] 3: F/B tilts on tilt board x 20 Skilled Intervention: Skilled judgment used to assess appropriate program for balance and coordination activity. Billing Therapeutic Exercise Treatment Minutes: 23 Neuromuscular Re-Education Treatment Minutes: 17 Skilled Treatment Time Minutes (timed and untimed codes): 40 Total Session Time (minutes): 40 Session Start Time : 736 Session Stop Time : 816 Thad Srivastava PT CNOV Observed: 05/18/2024 8:40 AM Status: COMPLETED Source: [facility] Office Visit (KARLOS) HETAL HUSAIN ([id number]) 1970 M Date Time Provider Department 05/18/24 8:40 AM LIDIA VAUGHAN During your visit today, we recorded the following information about you: Pulse Respiration Blood pressure Weight 66/minute 18/minute 139/89 123.4 kg Lidia Vaughan APRN.W[employer]LESS NETWORK ENGINEER 05/18/2024 10:14 AM Signed 05/15/2024 Patient presents with: BP Check SUBJECTIVE: This is a 53 year old, accompanied by , that is here today for Above Complaints. BP continued to e elevated at last office appointment after Metoprolol XL increased. Started on Amlodipine. Taking and tolerating without side effects. Checking BP at home with ranges of 150-170/90-100. Brought BP cuff to validate today. Denies visual changes, headaches, lightheadedness, dizziness, slurred speech, facial drooping, extremity numbness, tingling or weakness Reports mood improved on Prozac however he is unable to [place]. Is not currently attending counseling PAST MEDICAL HISTORY Diagnosis Date Achilles tendinitis of left lower extremity Achilles tendinitis, left leg Current moderate episode of major depressive disorder without prior episode (HCC) Elevated LFTs Essential hypertension Hepatic steatosis Hyperplastic colonic polyp Hypertension Mixed hyperlipidemia Obesity (BMI 30-39.9) Prediabetes Sleep apnea not using CPAP Tobacco use disorder ALLERGIES Lisinopril (Bulk), Wellbutrin [Bupropion], and Zoloft [Sertraline] MEDICATIONS Current Outpatient Medications Medication Sig potassium chloride (K-TAB) 10 mEq tablet Take 1 tablet by mouth daily with breakfast. metoprolol succinate ER (TOPROL XL) 50 mg 24 hr tablet Take 1 tablet by mouth once daily. amLODIPine (NORVASC) 2.5 mg tablet Take 1 tablet by mouth once daily. metFORMIN (GLUCOPHAGE) 500 mg tablet Take 1 tablet by mouth two times a day with meals. meloxicam (MOBIC) 15 mg tablet Take 1 tablet by mouth daily with food. losartan (COZAAR) 100 mg tablet Take 1 tablet by mouth once daily. FLUoxetine (PROZAC) 40 mg capsule Take 1 capsule by mouth once daily. hydroCHLOROthiazide 50 mg tablet Take 1 tablet by mouth once daily. aspirin 325 mg tablet Take 1 tablet by mouth two times a day for 28 days. atorvastatin (LIPITOR) 10 mg tablet Take 1 tablet by mouth daily at bedtime. For cholesterol. COMPOUNDED PRESCRIPTION Take by mouth once daily. Centrum Silver multivitamin No current facility-administered medications for this visit. Medications and allergies reviewed by this provider. SOCIAL HISTORY Social History Tobacco Use Smoking status: Former Current packs/day: 0.00 Average packs/day: 0.5 packs/day for 7.1 years (3.5 ttl pk-yrs) Types: Cigarettes Start date: 11/08/2016 Quit date: 12/03/2023 Years since quittin.4 Passive exposure: Never Smokeless tobacco: Former Types: Snuff Quit date: 07/14/2015 Vaping Use Vaping status: current everyday user Substances: Flavoring Devices: Pre-filled or refillable cartridge Substance Use Topics Alcohol use: Yes Alcohol/week: 8.0 standard drinks of alcohol Types: 8 Standard drinks or equivalent per week Comment: 8 drinks most Tuesday Drug use: Not Currently Types: Marijuana REVIEW OF SYSTEMS All other reviewed and negative other than HPI. OBJECTIVE: BP 139/89 Pulse 66 Resp 18 Wt 123.4 kg (272 lb 0.8 oz) SpO2 96% BMI 37.94 kg/m? . Vital signs reviewed by this provider. APPEARANCE Well appearing, alert, in no acute distress, well-hydrated, well nourished. Anxiety Screening Never done BP Controlled (<130/80) Never done Hepatitis B Vaccine(1 of 3 - 19+ 3-dose series) Never done DTaP,Tdap,Td Vaccine(1 - Tdap) due on 02/04/2018 Shingrix Vaccine(2 of 2) due on 06/03/2023 Annual PCP Team Chronic Disease Visit due on 05/18/2025 Diabetes Screening due on 04/11/2027 Lipid Screening due on 10/17/2028 Colorectal Cancer Screening due on 05/06/2030 Influenza Vaccine Completed Hepatitis C Screening Completed Covid-19 Vaccine Completed HIV Screening Discontinued ASSESSMENT/PLAN: 1. Essential hypertension - ICD9: 401.9, ICD10: I10 (primary diagnosis) - Uncontrolled - home cuff correlated with office cuff - Increase amlodipine - Recommend home blood pressure monitoring, to bring results to next visit - Encouraged sodium restriction, DASH or Mediterranean diet - Recommend regular aerobic exercise - Discussed need for and benefit of weight loss. BMI 37.94 kg/(m2) - Smoking cessation encouraged; discussed risks to health and quitting strategies. Patient is contemplative- patient just started back up - Follow up in 2 weeks with BP readings - AMLODIPINE 5 MG TABLET 2. Depression, unspecified depression type - ICD9: 311, ICD10: F32.A - will switch Prozac to Cymbalta - counseling highly encouraged - DULOXETINE 20 MG CAPSULE,DELAYED RELEASE 3. 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 Patient advised if symptoms do not improve or if symptoms worsen sooner, to contact their primary care physician. Potential red flag symptoms discussed with the patient. Reviewed appropriate action plan to take if red flag symptoms occur. Patient agreeable to treatment plan. Medical Decision Making: Problems: Moderate: 1+ chronic illnesses with change Risk: Moderate: Drug management and Moderate risk from testing/treatment Medical Decision Making Level: 4 - Moderate Lidia Vaughan APRN.CNP 05/18/2024 9:15 AM Signed Take BP at home daily and update me in two weeks with readings Allergies As of Date: 05/18/2024 Noted Allergy Reaction LISINOPRIL (BULK) 07/14/2017 3 - Cough WELLBUTRIN (BUPROPION) 09/06/2023 14 - Other: See Comments Comments: Anxiety ZOLOFT (SERTRALINE) 08/11/2020 14 - Other: See Comments Comments: Sexual side effects. Date Reviewed: 05/18/2024 Reviewed by: Neena Davalos LPN - Fully Assessed Reason for Visit: BP Check [142] Primary Visit Diagnosis:Essential hypertension [I10] Other Visit Diagnoses:Depression, unspecified depression type [F32.A] Delayed ejaculation [F52.32] Hypertension, unspecified type [I10] Order(s):atorvastatin (LIPITOR) 10 mg tabletTake 1 tablet by mouth daily at bedtime. For cholesterol.Disp: 90 tabletRfl: 1 amLODIPine (NORVASC) 5 mg tabletTake 1 tablet by mouth once daily.Disp: 90 tabletRfl: 1 DULoxetine (CYMBALTA) 20 mg capsuleTake 1 capsule by mouth once daily.Disp: 30 capsuleRfl: 1 Prescriptions as of 05/18/2024 - atorvastatin (LIPITOR) 10 mg tablet Take 1 tablet by mouth daily at bedtime. For cholesterol. - amLODIPine (NORVASC) 5 mg tablet Take 1 tablet by mouth once daily. - DULoxetine (CYMBALTA) 20 mg capsule Take 1 capsule by mouth once daily. - potassium chloride (K-TAB) 10 mEq tablet Take 1 tablet by mouth daily with breakfast. - metoprolol succinate ER (TOPROL XL) 50 mg 24 hr tablet Take 1 tablet by mouth once daily. - metFORMIN (GLUCOPHAGE) 500 mg tablet Take 1 tablet by mouth two times a day with meals. - meloxicam (MOBIC) 15 mg tablet Take 1 tablet by mouth daily with food. - losartan (COZAAR) 100 mg tablet Take 1 tablet by mouth once daily. - hydroCHLOROthiazide 50 mg tablet Take 1 tablet by mouth once daily. - aspirin 325 mg tablet Take 1 tablet by mouth two times a day for 28 days. - COMPOUNDED PRESCRIPTION Take by mouth once daily. 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] 05/20/2017 Hypertension [I10] Obesity (BMI 30-39.9) [E66.9] Sleep apnea [G47.30] Current moderate episode of major depressive di* Vertigo [R42] 08/11/2020 Mixed hyperlipidemia [E78.2] Prediabetes [R73.03] Achilles tendinitis, left leg [M76.62] 04/08/2023 Calcaneal spur of foot, left [M77.32] 04/29/2023 Former smoker [Z87.891] 08/19/2023 Obesity, Class I, BMI 30-34.9 [E66.811] 2023 Other instructions from your clinician: Take BP at home daily and update me in two weeks with readings Prescriptions ordered this encounter Disp Refills Start End ATORVASTATIN 10 MG TABLET 90 t* 1 05/18/2024 11/14/2024 Route: ORAL Sig: Take 1 tablet by mouth daily at bedtime. For cholesterol. AMLODIPINE 5 MG TABLET 90 t* 1 05/18/2024 11/14/2024 Class: Med Update Route: ORAL Sig: Take 1 tablet by mouth once daily. DULOXETINE 20 MG CAPSULE,DELAYED REL* 30 c* 1 05/18/2024 Route: ORAL Sig: Take 1 capsule by mouth once daily. Medications Discontinued During This Encounter Prescriptions - FLUoxetine (PROZAC) 40 mg capsule (Discontinued) Take 1 capsule by mouth once daily. - atorvastatin (LIPITOR) 10 mg tablet (Discontinued) Take 1 tablet by mouth daily at bedtime. For cholesterol. - amLODIPine (NORVASC) 2.5 mg tablet (Discontinued) Take 1 tablet by mouth once daily. Encounter Status:Closed by LIDIA VAUGHAN on 05/18/24 PROGRESS Observed: 05/18/2024 8:40 AM Status: COMPLETED Source: [facility]NO ID: [id number] Author: LIDIA VAUGHAN APRN.WIRELESS NETWORK ENGINEER Service: ? Author Type: Nurse Practitioner Type: Progress Notes Filed: 05/18/2024 10:14 Note Text: 05/15/2024 Patient presents with: BP Check SUBJECTIVE: This is a 53 year old, accompanied by , that is here today for Above Complaints. BP continued to e elevated at last office appointment after Metoprolol XL increased. Started on Amlodipine. Taking and tolerating without side effects. Checking BP at home with ranges of 150-170/90-100. Brought BP cuff to validate today. Denies visual changes, headaches, lightheadedness, dizziness, slurred speech, facial drooping, extremity numbness, tingling or weakness Reports mood improved on Prozac however he is unable to [place]. Is not currently attending counseling PAST MEDICAL HISTORY Diagnosis Date Achilles tendinitis of left lower extremity Achilles tendinitis, left leg Current moderate episode of major depressive disorder without prior episode (HCC) Elevated LFTs Essential hypertension Hepatic steatosis Hyperplastic colonic polyp Hypertension Mixed hyperlipidemia Obesity (BMI 30-39.9) Prediabetes Sleep apnea not using CPAP Tobacco use disorder ALLERGIES Lisinopril (Bulk), Wellbutrin [Bupropion], and Zoloft [Sertraline] MEDICATIONS Current Outpatient Medications Medication Sig potassium chloride (K-TAB) 10 mEq tablet Take 1 tablet by mouth daily with breakfast. metoprolol succinate ER (TOPROL XL) 50 mg 24 hr tablet Take 1 tablet by mouth once daily. amLODIPine (NORVASC) 2.5 mg tablet Take 1 tablet by mouth once daily. metFORMIN (GLUCOPHAGE) 500 mg tablet Take 1 tablet by mouth two times a day with meals. meloxicam (MOBIC) 15 mg tablet Take 1 tablet by mouth daily with food. losartan (COZAAR) 100 mg tablet Take 1 tablet by mouth once daily. FLUoxetine (PROZAC) 40 mg capsule Take 1 capsule by mouth once daily. hydroCHLOROthiazide 50 mg tablet Take 1 tablet by mouth once daily. aspirin 325 mg tablet Take 1 tablet by mouth two times a day for 28 days. atorvastatin (LIPITOR) 10 mg tablet Take 1 tablet by mouth daily at bedtime. For cholesterol. COMPOUNDED PRESCRIPTION Take by mouth once daily. Centrum Silver multivitamin No current facility-administered medications for this visit. Medications and allergies reviewed by this provider. SOCIAL HISTORY Social History Tobacco Use Smoking status: Former Current packs/day: 0.00 Average packs/day: 0.5 packs/day for 7.1 years (3.5 ttl pk-yrs) Types: Cigarettes Start date: 11/08/2016 Quit date: 12/03/2023 Years since quittin.4 Passive exposure: Never Smokeless tobacco: Former Types: Snuff Quit date: 07/14/2015 Vaping Use Vaping status: current everyday user Substances: Flavoring Devices: Pre-filled or refillable cartridge Substance Use Topics Alcohol use: Yes Alcohol/week: 8.0 standard drinks of alcohol Types: 8 Standard drinks or equivalent per week Comment: 8 drinks most Tuesday Drug use: Not Currently Types: Marijuana REVIEW OF SYSTEMS All other reviewed and negative other than HPI. OBJECTIVE: BP 139/89 Pulse 66 Resp 18 Wt 123.4 kg (272 lb 0.8 oz) SpO2 96% BMI 37.94 kg/m? . Vital signs reviewed by this provider. APPEARANCE Well appearing, alert, in no acute distress, well-hydrated, well nourished. Anxiety Screening Never done BP Controlled (<130/80) Never done Hepatitis B Vaccine(1 of 3 - 19+ 3-dose series) Never done DTaP,Tdap,Td Vaccine(1 - Tdap) due on 02/04/2018 Shingrix Vaccine(2 of 2) due on 06/03/2023 Annual PCP Team Chronic Disease Visit due on 05/18/2025 Diabetes Screening due on 04/11/2027 Lipid Screening due on 10/17/2028 Colorectal Cancer Screening due on 05/06/2030 Influenza Vaccine Completed Hepatitis C Screening Completed Covid-19 Vaccine Completed HIV Screening Discontinued ASSESSMENT/PLAN: 1. Essential hypertension - ICD9: 401.9, ICD10: I10 (primary diagnosis) - Uncontrolled - home cuff correlated with office cuff - Increase amlodipine - Recommend home blood pressure monitoring, to bring results to next visit - Encouraged sodium restriction, DASH or Mediterranean diet - Recommend regular aerobic exercise - Discussed need for and benefit of weight loss. BMI 37.94 kg/(m2) - Smoking cessation encouraged; discussed risks to health and quitting strategies. Patient is contemplative- patient just started back up - Follow up in 2 weeks with BP readings - AMLODIPINE 5 MG TABLET 2. Depression, unspecified depression type - ICD9: 311, ICD10: F32.A - will switch Prozac to Cymbalta - counseling highly encouraged - DULOXETINE 20 MG CAPSULE,DELAYED RELEASE 3. 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 Patient advised if symptoms do not improve or if symptoms worsen sooner, to contact their primary care physician. Potential red flag symptoms discussed with the patient. Reviewed appropriate action plan to take if red flag symptoms occur. Patient agreeable to treatment plan. Medical Decision Making: Problems: Moderate: 1+ chronic illnesses with change Risk: Moderate: Drug management and Moderate risk from testing/treatment Medical Decision Making Level: 4 - Moderate PROGRESS Observed: 05/11/2024 11:46 AM Status: COMPLETED Source: [facility]NO ID: [id number] Author: THAD SRIVASTAVA PT Service: ? Author Type: Physical Therapist Type: Progress Notes Filed: 05/11/2024 12:50 Note Text: Episode Visit Count: 5 Therapist That Will Accept/Oversee The Plan Of Care: Thad Srivastava PT Start of Care Date: 03/29/24 Onset Date: 10/09/22 Patient Identified by Name and Date of : Yes REHABILITATION AND SPORTS THERAPY PHYSICAL THERAPY PROGRESS REPORT PLAN OF CARE UPDATE: Assessment: Hetal Husain demonstrates difficulty with walking and stair negotiation and improvements in ankle ROM and achilles strength. The patient has progressed toward goals. Patient continues to present with impairments in gait and strength that interfere with stair negotiation, walking . Current prognosis is Good due to: current objective clinical presentation . The patient will benefit from continued skilled therapy services to meet the updated goals for this plan of care as noted below. Goals updated 05/11/2024 Goals for Episode of Care: established 03/29/24 [place] in home exercise program. - met Patient will decrease pain rating by 2 points to meet minimal clinical important difference for numeric pain rating scale. - not met Perform stairs without pain. - not met Increase ROM of L ankle DF for normal gait mechanics - met Increased strength of L ankle PF by demonstrating SL heel raise for improved gait quality - Progressing Normal gait. - progressing Patient Goals: Be able to walk 2-3 miles Time Frame for Goals and Treatment : 05/31/23 Patient Goals: Be able to walk 2-3 miles Planned Interventions, Frequency, and Duration: 1x every other week, 4 weeks Total Number of Visits Planned: 2 Patient to be seen for Therapeutic exercise (11851), Neuromuscular re-education (82555), Manual therapy (32053), Therapeutic activities (19327), Self-correction management (62611), Gait Training (36246), Patient/Family/Caregiver Education PLAN FOR NEXT VISIT: Continue loading achilles as tolerated. B 50% heel raise x 15 reps SUBJECTIVE: The pain is a little less but still there. The pain comes in waves. Does feel like he is able to walk better at times. Getting a sharp pain in the hip. Doing the stretches every day. Pt is walking more lately because of work. Patient Goals: Be able to walk 2-3 miles Functional Limitations: stair negotiation, walking Prior Level of Function: Independent without limitations Intake Information: Prescription present Previous Treatment: NSAIDs Pain: Pain Pain Level: 4 Pain Location: Heel - Left Description: Sharp PROMIS Scales 04/22/2024 03/26/2024 01/26/2024 Higher is Better Phys Func - Score 42 (mild dysfunction) 38 (moderate dysfunction) 47 (within normal limits) Phys Func - Percentile 21 12 38 Self-Eff Symptom - Score 51 (Average) 33 (Low) Self-Eff Symptom - Percentile 54 4 T-scores: mean of general population = 50. 5 points is clinically meaningfully difference Percentiles provide an indication of how the patient's score ranks in relation to the general population. Higher percentile rankings indicate better function/quality of life. 50th percentile is the average of the general population and indicates half of respondents had a worse score. OBJECTIVE MEASURES WITH LEVEL OF FUNCTION: LE AROM L Ankle Dorsiflexion: 18 Degrees LE Flexibility Flexibility: Gastrocnemius Flexibility R Gastrocnemius Flexibility: WNL L Gastrocnemius Flexibility: WNL LE Strength L Ankle Plantar Flexion: 4+/5 Gait Gait Observation: Slight antalgic gait LLE TREATMENT: Therapeutic Exercise: 1: All objective measures taken this session 2: B ankle heel raise 50% WM 4 x 10 3: Discussed tracking heel raises WB and reps moving forward Skilled Intervention: Patient was educated in proper exercise technique and purpose for exercises. Provided written instruction for home exercise program to facilitate proper performance and compliance. Correct performance of therapeutic exercises was facilitated with verbal and visual cuing. Billing Therapeutic Exercise Treatment Minutes: 28 Skilled Treatment Time Minutes (timed and untimed codes): 28 Total Session Time (minutes): 28 Session Start Time : 1146 Session Stop Time : 1214 Thad Srivastava PT CNTHERAPY Observed: 05/11/2024 11:45 AM Status: COMPLETED Source: [facility] OT/PT/Speech Visit (PTWS) HETAL HUSAIN ([id number]) 1970 M Date Time Provider Department 05/11/24 11:45 AM THAD SRIVASTAVA PTWS Date Time Provider Department Center 05/11/2024 11:45 AM [id number], [facility] PTWS Yony Ramirez Reason for Visit: PT Progress Note [1596] Primary Visit Diagnosis:Achilles tendinitis, left leg [M76.62] Allergies As of Date: 05/11/2024 Noted Allergy Reaction LISINOPRIL (BULK) 07/14/2017 3 - Cough WELLBUTRIN (BUPROPION) 09/06/2023 14 - Other: See Comments Comments: Anxiety ZOLOFT (SERTRALINE) 08/11/2020 14 - Other: See Comments Comments: Sexual side effects. Date Reviewed: 04/19/2024 Reviewed by: Parvin Fatima MA - Fully Assessed Prescriptions as of 05/11/2024 - metFORMIN (GLUCOPHAGE) 500 mg tablet Take 1 tablet by mouth two times a day with meals. - meloxicam (MOBIC) 15 mg tablet Take 1 tablet by mouth daily with food. - amLODIPine (NORVASC) 2.5 mg tablet Take 1 tablet by mouth once daily. - metoprolol succinate ER (TOPROL XL) 50 mg 24 hr tablet Take 1 tablet by mouth once daily. - losartan (COZAAR) 100 mg tablet Take 1 tablet by mouth once daily. - potassium chloride (K-TAB) 10 mEq tablet Take 1 tablet by mouth daily with breakfast. - FLUoxetine (PROZAC) 40 mg capsule Take 1 capsule by mouth once daily. - hydroCHLOROthiazide 50 mg tablet Take 1 tablet by mouth once daily. - aspirin 325 mg tablet Take 1 tablet by mouth two times a day for 28 days. - atorvastatin (LIPITOR) 10 mg tablet Take 1 tablet by mouth daily at bedtime. For cholesterol. - COMPOUNDED PRESCRIPTION Take by mouth once daily. Centrum Silver multivitamin CNTHERAPY Observed: 04/24/2024 8:30 AM Status: COMPLETED Source: [facility] OT/PT/Speech Visit (PTWS) HETAL HUSAIN ([id number]) 1970 M Date Time Provider Department 04/24/24 8:30 AM THAD SRIVASTAVA PTWS Date Time Provider Department Center 04/24/2024 8:30 AM [id number], [facility] PTWS Yony Ramirez Reason for Visit: Physical Therapy [503] Primary Visit Diagnosis:Achilles tendinitis, left leg [M76.62] Allergies As of Date: 04/24/2024 Noted Allergy Reaction LISINOPRIL (BULK) 07/14/2017 3 - Cough WELLBUTRIN (BUPROPION) 09/06/2023 14 - Other: See Comments Comments: Anxiety ZOLOFT (SERTRALINE) 08/11/2020 14 - Other: See Comments Comments: Sexual side effects. Date Reviewed: 04/19/2024 Reviewed by: Parvin Fatima MA - Fully Assessed Prescriptions as of 04/24/2024 - meloxicam (MOBIC) 15 mg tablet Take 1 tablet by mouth daily with food. - amLODIPine (NORVASC) 2.5 mg tablet Take 1 tablet by mouth once daily. - metoprolol succinate ER (TOPROL XL) 50 mg 24 hr tablet Take 1 tablet by mouth once daily. - losartan (COZAAR) 100 mg tablet Take 1 tablet by mouth once daily. - potassium chloride (K-TAB) 10 mEq tablet Take 1 tablet by mouth daily with breakfast. - FLUoxetine (PROZAC) 40 mg capsule Take 1 capsule by mouth once daily. - hydroCHLOROthiazide 50 mg tablet Take 1 tablet by mouth once daily. - aspirin 325 mg tablet Take 1 tablet by mouth two times a day for 28 days. - atorvastatin (LIPITOR) 10 mg tablet Take 1 tablet by mouth daily at bedtime. For cholesterol. - metFORMIN (GLUCOPHAGE) 500 mg tablet Take 1 tablet by mouth two times a day with meals. - COMPOUNDED PRESCRIPTION Take by mouth once daily. Centrum Silver multivitamin PROGRESS Observed: 04/24/2024 8:29 AM Status: COMPLETED Source: [facility] HNO ID: [id number] Author: THAD SRIVASTAVA PT Service: ? Author Type: Physical Therapist Type: Progress Notes Filed: 04/24/2024 09:20 Note Text: Episode Visit Count: 4 Therapist That Will Accept/Oversee The Plan Of Care: Thad Srivastava PT Start of Care Date: 03/29/24 Onset Date: 10/09/22 Patient Identified by Name and Date of : Yes REHABILITATION AND SPORTS THERAPY PHYSICAL THERAPY TREATMENT NOTE ASSESSMENT: Hetal Husain tolerated the session with expected muscle soreness. He demonstrated antalgic gait throughout the session on the LLE. The patient will continue to benefit from ongoing skilled physical therapy to progress toward set goals. PLAN FOR NEXT VISIT: PN SUBJECTIVE: Pt reports he has pain around where the screws were probably placed in the heel. Saw his surgeon who said that everything is looking good and his level of pain is expected at this point in recovery. Pain: Pain Pain Level: 5 Pain Location: Heel - Left OBJECTIVE MEASURES WITH LEVEL OF FUNCTION: Tender around the lateral and medial portion of the calcaneus TREATMENT: Therapeutic Exercise: 1: B heel raise mod height 2 x 10 2: Squat 3 x 7 reps 3: SciFit x 5 min (1:1 time spent) 4: Standing calf stretch 3 x 30 sec Skilled Intervention: Patient was educated in proper exercise technique and purpose for exercises. Correct performance of therapeutic exercises was facilitated with verbal cuing. Manual Therapy: 1: IASTM over the L gastrocnemius muscle belly x 15 min Skilled Intervention: Manual skills to improve joint mobility, ROM, and decrease pain. Utilized anatomy knowledge of the therapist, and assessment of patient's response to intervention. Billing Therapeutic Exercise Treatment Minutes: 34 Manual TherapyTreatment Minutes: 15 Skilled Treatment Time Minutes (timed and untimed codes): 49 Total Session Time (minutes): 49 Session Start Time : 828 Session Stop Time : 917 Thad Srivastava PT CNOV Observed: 04/19/2024 11:15 AM Status: COMPLETED Source: [facility] Office Visit (ORTHIN) HETAL HUSAIN ([id number]) 1970 M Date Time Provider Department 04/19/24 11:15 AM FRED MICHELE During your visit today, we recorded the following information about you: Fred Michele MD 04/27/2024 9:28 AM Signed Hetal Husain Surgery Date: 01/27/2024 Surgery: Left Achilles tendon debridement Interval History: He is now 12 weeks since surgery. They report 01/17 pain while walking or putting pressure on the toes ASSESSMENT/PLAN: S/P Left Achilles tendon secondary repair, Left calcaneal Exostectomy, Left Achilles tendon debridement on 01/27/2024. - Doing very well overall, expected recovery to this date - Follow up in 3 months for repeat evaluation Physical Exam: Well appearing male in no acute distress; Alert and oriented. Left Leg: Incision is clean dry and intact. There is no erythema warmth or drainage. He has palpable pulses, sensation is intact. He is able to flex and extend their toes and ankles without difficulty Radiographs: None Medication, History, and Allergies were reviewed and updated in the medical record. Niranjan Helm DO Orthopaedic Attending Addendum Attending Note: Cutler findings of HPI confirmed. Patient examined. Discussed with the resident and the patient. Plan as outlined below. ASSESSMENT/PLAN: 1. Achilles tendinitis of left lower extremity - ICD9: 726.71, ICD10: M76.62 - Continue pT Fred Michele MD Allergies As of Date: 04/19/2024 Noted Allergy Reaction LISINOPRIL (BULK) 07/14/2017 3 - Cough WELLBUTRIN (BUPROPION) 09/06/2023 14 - Other: See Comments Comments: Anxiety ZOLOFT (SERTRALINE) 08/11/2020 14 - Other: See Comments Comments: Sexual side effects. Date Reviewed: 04/19/2024 Reviewed by: Parvin Fatima MA - Fully Assessed Reason for Visit: Post Op [174] Primary Visit Diagnosis:Achilles tendinitis of left lower extremity [M76.62] Prescriptions as of 04/27/2024 - meloxicam (MOBIC) 15 mg tablet Take 1 tablet by mouth daily with food. - amLODIPine (NORVASC) 2.5 mg tablet Take 1 tablet by mouth once daily. - metoprolol succinate ER (TOPROL XL) 50 mg 24 hr tablet Take 1 tablet by mouth once daily. - losartan (COZAAR) 100 mg tablet Take 1 tablet by mouth once daily. - potassium chloride (K-TAB) 10 mEq tablet Take 1 tablet by mouth daily with breakfast. - FLUoxetine (PROZAC) 40 mg capsule Take 1 capsule by mouth once daily. - hydroCHLOROthiazide 50 mg tablet Take 1 tablet by mouth once daily. - aspirin 325 mg tablet Take 1 tablet by mouth two times a day for 28 days. - atorvastatin (LIPITOR) 10 mg tablet Take 1 tablet by mouth daily at bedtime. For cholesterol. - metFORMIN (GLUCOPHAGE) 500 mg tablet Take 1 tablet by mouth two times a day with meals. - COMPOUNDED PRESCRIPTION Take by mouth once daily. 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 Follow-up and Disposition History for Encounter Date Provider Department Center 04/19/2024 [id number], *ORTHIN [facility] Encounter Status:Closed by FRED MICHELE on 04/27/24 PROGRESS Observed: 04/19/2024 11:15 AM Status: COMPLETED Source: [facility] HNO ID: [id number] Author: FRED MICHELE MD Service: ? Author Type: Physician Type: Progress Notes Filed: 04/27/2024 09:28 Note Text: Hetal Husain Surgery Date: 01/27/2024 Surgery: Left Achilles tendon debridement Interval History: He is now 12 weeks since surgery. They report 7/10 pain while walking or putting pressure on the toes ASSESSMENT/PLAN: S/P Left Achilles tendon secondary repair, Left calcaneal Exostectomy, Left Achilles tendon debridement on 01/27/2024. - Doing very well overall, expected recovery to this date - Follow up in 3 months for repeat evaluation Physical Exam: Well appearing male in no acute distress; Alert and oriented. Left Leg: Incision is clean dry and intact. There is no erythema warmth or drainage. He has palpable pulses, sensation is intact. He is able to flex and extend their toes and ankles without difficulty Radiographs: None Medication, History, and Allergies were reviewed and updated in the medical record. Niranjan Helm DO Orthopaedic Attending Addendum Attending Note: Cutler findings of HPI confirmed. Patient examined. Discussed with the resident and the patient. Plan as outlined below. ASSESSMENT/PLAN: 1. Achilles tendinitis of left lower extremity - ICD9: 726.71, ICD10: M76.62 - Continue pT Fred Michele MD CNTHERAPY Observed: 04/17/2024 6:15 PM Status: COMPLETED Source: [facility] OT/PT/Speech Visit (PTWS) LIZBETH HUSAINY ([id number]) 1970 M Date Time Provider Department 04/17/24 6:15 PM THAD SRIVASTAVA PTWS Date Time Provider Department Center 04/17/2024 6:15 PM [id number], [place] Reason for Visit: Physical Therapy [503] Primary Visit Diagnosis:Achilles tendinitis, left leg [M76.62] Allergies As of Date: 04/17/2024 Noted Allergy Reaction LISINOPRIL (BULK) 07/14/2017 3 - Cough WELLBUTRIN (BUPROPION) 09/06/2023 14 - Other: See Comments Comments: Anxiety ZOLOFT (SERTRALINE) 08/11/2020 14 - Other: See Comments Comments: Sexual side effects. Date Reviewed: 04/16/2024 Reviewed by: Neena Davalos LPN - Fully Assessed Prescriptions as of 04/17/2024 - meloxicam (MOBIC) 15 mg tablet Take 1 tablet by mouth daily with food. - amLODIPine (NORVASC) 2.5 mg tablet Take 1 tablet by mouth once daily. - metoprolol succinate ER (TOPROL XL) 50 mg 24 hr tablet Take 1 tablet by mouth once daily. - losartan (COZAAR) 100 mg tablet Take 1 tablet by mouth once daily. - potassium chloride (K-TAB) 10 mEq tablet Take 1 tablet by mouth daily with breakfast. - FLUoxetine (PROZAC) 40 mg capsule Take 1 capsule by mouth once daily. - hydroCHLOROthiazide 50 mg tablet Take 1 tablet by mouth once daily. - aspirin 325 mg tablet Take 1 tablet by mouth two times a day for 28 days. - atorvastatin (LIPITOR) 10 mg tablet Take 1 tablet by mouth daily at bedtime. For cholesterol. - metFORMIN (GLUCOPHAGE) 500 mg tablet Take 1 tablet by mouth two times a day with meals. - COMPOUNDED PRESCRIPTION Take by mouth once daily. Centrum Silver multivitamin PROGRESS Observed: 04/17/2024 6:08 PM Status: COMPLETED Source: [facility] ID: [id number] Author: THAD SRIVASTAVA PT Service: ? Author Type: Physical Therapist Type: Progress Notes Filed: 04/17/2024 18:55 Note Text: Episode Visit Count: 3 Therapist That Will Accept/Oversee The Plan Of Care: Thad Srivastava PT Start of Care Date: 03/29/24 Onset Date: 10/09/22 Patient Identified by Name and Date of : Yes REHABILITATION AND SPORTS THERAPY PHYSICAL THERAPY TREATMENT NOTE ASSESSMENT: Hetal Husain tolerated the session with expected muscle soreness. He demonstrated good tolerance to MT performed this session. The patient will continue to benefit from ongoing skilled physical therapy to progress toward set goals. PLAN FOR NEXT VISIT: Achilles tendon isometrics. IASTM over gastroc muscle belly. SUBJECTIVE: The pain is off and on based on how much he walks. Pain: Pain Pain Location: Heel - Left OBJECTIVE MEASURES WITH LEVEL OF FUNCTION: Mild swelling medial and lateral to achilles insertion TREATMENT: Therapeutic Exercise: 1: B heel raise more dina on RLE x 8 (too painful on the L achilles) 2: Ankle PF isometric 3 x 10 reps 3: Sidelying hip abduction 2 x 10 Skilled Intervention: Patient was educated in proper exercise technique and purpose for exercises. Correct performance of therapeutic exercises was facilitated with verbal and visual cuing. Manual Therapy: 1: IASTM over the L gastrocnemius muscle belly 2: Finger gliding over gastrocnemius muscle belly Skilled Intervention: Manual skills to improve joint mobility, ROM, and decrease pain. Utilized anatomy knowledge of the therapist, and assessment of patient's response to intervention. Billing Therapeutic Exercise Treatment Minutes: 10 Manual TherapyTreatment Minutes: 36 Skilled Treatment Time Minutes (timed and untimed codes): 46 Total Session Time (minutes): 46 Session Start Time : 1808 Session Stop Time : 1853 Thad Srivastava PT PROGRESS Observed: 04/16/2024 8:40 AM Status: COMPLETED Source: [facility] ID: [id number] Author: LIDIA VAUGHAN APRN.WIRELESS NETWORK ENGINEER Service: ? Author Type: Nurse Practitioner Type: Progress Notes Filed: 04/16/2024 09:23 Note Text: 04/13/2024 Patient presents with: Follow Up: BP AND depression SUBJECTIVE: This is a 53 year old that is here today for Above Complaints. Metoprolol increased at last office visit for uncontrolled BP. Taking and tolerating without side effects. Checking BP at home sporadically and the last time was the other day and was 159/88. Denies visual changes, headaches, lightheadedness, dizziness, slurred speech, facial drooping, extremity numbness, tingling or weakness Depression: taking Prozac as prescribed without side effects. Feeling well on current dose. Not attending counseling as reports he is not interested in counseling at this time Does note he was unable to climax during sex the other day but not sure if that is medication related or not. No difficulty with obtaining an erection. Denies SI, HI or insomnia PHQ9: 11 PAST MEDICAL HISTORY Diagnosis Date Achilles tendinitis of left lower extremity Achilles tendinitis, left leg Current moderate episode of major depressive disorder without prior episode (HCC) Elevated LFTs Essential hypertension Hepatic steatosis Hyperplastic colonic polyp Hypertension Mixed hyperlipidemia Obesity (BMI 30-39.9) Prediabetes Sleep apnea not using CPAP Tobacco use disorder ALLERGIES Lisinopril (Bulk), Wellbutrin [Bupropion], and Zoloft [Sertraline] MEDICATIONS Current Outpatient Medications Medication Sig metoprolol succinate ER (TOPROL XL) 50 mg 24 hr tablet Take 1 tablet by mouth once daily. losartan (COZAAR) 100 mg tablet Take 1 tablet by mouth once daily. potassium chloride (K-TAB) 10 mEq tablet Take 1 tablet by mouth daily with breakfast. FLUoxetine (PROZAC) 40 mg capsule Take 1 capsule by mouth once daily. meloxicam (MOBIC) 15 mg tablet Take 1 tablet by mouth daily with food. hydroCHLOROthiazide 50 mg tablet Take 1 tablet by mouth once daily. aspirin 325 mg tablet Take 1 tablet by mouth two times a day for 28 days. atorvastatin (LIPITOR) 10 mg tablet Take 1 tablet by mouth daily at bedtime. For cholesterol. metFORMIN (GLUCOPHAGE) 500 mg tablet Take 1 tablet by mouth two times a day with meals. COMPOUNDED PRESCRIPTION Take by mouth once daily. Centrum Silver multivitamin No current facility-administered medications for this visit. Medications and allergies reviewed by this provider. SOCIAL HISTORY Social History Tobacco Use Smoking status: Former Current packs/day: 0.00 Average packs/day: 0.5 packs/day for 7.1 years (3.5 ttl pk-yrs) Types: Cigarettes Start date: 11/08/2016 Quit date: 12/03/2023 Years since quittin.3 Passive exposure: Never Smokeless tobacco: Former Types: Snuff Quit date: 07/14/2015 Vaping Use Vaping status: current everyday user Substances: Flavoring Devices: Pre-filled or refillable cartridge Substance Use Topics Alcohol use: Yes Alcohol/week: 8.0 standard drinks of alcohol Types: 8 Standard drinks or equivalent per week Comment: 8 drinks most Tuesday Drug use: Not Currently Types: Marijuana REVIEW OF SYSTEMS All other reviewed and negative other than HPI. OBJECTIVE: BP 157/91 Pulse (!) 59 Resp 16 Wt 123.8 kg (272 lb 14.9 oz) SpO2 94% BMI 38.07 kg/m? . Vital signs reviewed by this provider. APPEARANCE Well appearing, alert, in no acute distress, well-hydrated, well nourished. Anxiety Screening Never done BP Controlled (<130/80) Never done Hepatitis B Vaccine(1 of 3 - 19+ 3-dose series) Never done DTaP,Tdap,Td Vaccine(1 - Tdap) due on 02/04/2018 Shingrix Vaccine(2 of 2) due on 06/03/2023 Annual PCP Team Chronic Disease Visit due on 04/16/2025 Diabetes Screening due on 04/11/2027 Lipid Screening due on 10/17/2028 Colorectal Cancer Screening due on 05/06/2030 Influenza Vaccine Completed Hepatitis C Screening Completed Covid-19 Vaccine Completed HIV Screening Discontinued ASSESSMENT/PLAN: 1. Essential hypertension - ICD9: 401.9, ICD10: I10 (primary diagnosis) - Uncontrolled - Continue current medications - Start amlodipine - Recommend home blood pressure monitoring, to bring results to next visit - Encouraged sodium restriction, DASH or Mediterranean diet - Recommend regular aerobic exercise - Discussed need for and benefit of weight loss. BMI 38.07 kg/(m2) - Follow up in 4 weeks for hypertension visit - BASIC METABOLIC PANEL - AMLODIPINE 2.5 MG TABLET 2. Current moderate episode of major depressive disorder without prior episode (HCC) - ICD9: 296.22, ICD10: F32.1 - discussed medication change- wants to wait and see - declines counseling - follow-up as needed Lidia Schmidtlogsenthil, PANELBEATER.WIRELESS NETWORK ENGINEER Prescription instructions reviewed with patient as applicable. Patient advised if symptoms do not improve or if symptoms worsen sooner, to contact their primary care physician. Potential red flag symptoms discussed with the patient. Reviewed appropriate action plan to take if red flag symptoms occur. Patient agreeable to treatment plan. Medical Decision Making: Problems: Moderate: New problem with uncertain prognosis Risk: Moderate: Drug management Medical Decision Making Level: 4 - Moderate CNOV Observed: 04/16/2024 8:40 AM Status: COMPLETED Source: [facility]USA[facility] ([id number]) 1970 M Date Time Provider Department 04/16/24 8:40 AM LIDIA VAUGHAN During your visit today, we recorded the following information about you: Pulse Respiration Blood pressure Weight 59/minute 16/minute 157/91 123.8 kg Lidia Vaughan APRN.WIRELESS NETWORK ENGINEER 04/16/2024 9:23 AM Signed 04/13/2024 Patient presents with: Follow Up: BP AND depression SUBJECTIVE: This is a 53 year old that is here today for Above Complaints. Metoprolol increased at last office visit for uncontrolled BP. Taking and tolerating without side effects. Checking BP at home sporadically and the last time was the other day and was 159/88. Denies visual changes, headaches, lightheadedness, dizziness, slurred speech, facial drooping, extremity numbness, tingling or weakness Depression: taking Prozac as prescribed without side effects. Feeling well on current dose. Not attending counseling as reports he is not interested in counseling at this time Does note he was unable to climax during sex the other day but not sure if that is medication related or not. No difficulty with obtaining an erection. Denies SI, HI or insomnia PHQ9: 11 PAST MEDICAL HISTORY Diagnosis Date Achilles tendinitis of left lower extremity Achilles tendinitis, left leg Current moderate episode of major depressive disorder without prior episode (HCC) Elevated LFTs Essential hypertension Hepatic steatosis Hyperplastic colonic polyp Hypertension Mixed hyperlipidemia Obesity (BMI 30-39.9) Prediabetes Sleep apnea not using CPAP Tobacco use disorder ALLERGIES Lisinopril (Bulk), Wellbutrin [Bupropion], and Zoloft [Sertraline] MEDICATIONS Current Outpatient Medications Medication Sig metoprolol succinate ER (TOPROL XL) 50 mg 24 hr tablet Take 1 tablet by mouth once daily. losartan (COZAAR) 100 mg tablet Take 1 tablet by mouth once daily. potassium chloride (K-TAB) 10 mEq tablet Take 1 tablet by mouth daily with breakfast. FLUoxetine (PROZAC) 40 mg capsule Take 1 capsule by mouth once daily. meloxicam (MOBIC) 15 mg tablet Take 1 tablet by mouth daily with food. hydroCHLOROthiazide 50 mg tablet Take 1 tablet by mouth once daily. aspirin 325 mg tablet Take 1 tablet by mouth two times a day for 28 days. atorvastatin (LIPITOR) 10 mg tablet Take 1 tablet by mouth daily at bedtime. For cholesterol. metFORMIN (GLUCOPHAGE) 500 mg tablet Take 1 tablet by mouth two times a day with meals. COMPOUNDED PRESCRIPTION Take by mouth once daily. Centrum Silver multivitamin No current facility-administered medications for this visit. Medications and allergies reviewed by this provider. SOCIAL HISTORY Social History Tobacco Use Smoking status: Former Current packs/day: 0.00 Average packs/day: 0.5 packs/day for 7.1 years (3.5 ttl pk-yrs) Types: Cigarettes Start date: 11/08/2016 Quit date: 12/03/2023 Years since quittin.3 Passive exposure: Never Smokeless tobacco: Former Types: Snuff Quit date: 07/14/2015 Vaping Use Vaping status: current everyday user Substances: Flavoring Devices: Pre-filled or refillable cartridge Substance Use Topics Alcohol use: Yes Alcohol/week: 8.0 standard drinks of alcohol Types: 8 Standard drinks or equivalent per week Comment: 8 drinks most Tuesday Drug use: Not Currently Types: Marijuana REVIEW OF SYSTEMS All other reviewed and negative other than HPI. OBJECTIVE: BP 157/91 Pulse (!) 59 Resp 16 Wt 123.8 kg (272 lb 14.9 oz) SpO2 94% BMI 38.07 kg/m? . Vital signs reviewed by this provider. APPEARANCE Well appearing, alert, in no acute distress, well-hydrated, well nourished. Anxiety Screening Never done BP Controlled (<130/80) Never done Hepatitis B Vaccine(1 of 3 - 19+ 3-dose series) Never done DTaP,Tdap,Td Vaccine(1 - Tdap) due on 02/04/2018 Shingrix Vaccine(2 of 2) due on 06/03/2023 Annual PCP Team Chronic Disease Visit due on 04/16/2025 Diabetes Screening due on 04/11/2027 Lipid Screening due on 10/17/2028 Colorectal Cancer Screening due on 05/06/2030 Influenza Vaccine Completed Hepatitis C Screening Completed Covid-19 Vaccine Completed HIV Screening Discontinued ASSESSMENT/PLAN: 1. Essential hypertension - ICD9: 401.9, ICD10: I10 (primary diagnosis) - Uncontrolled - Continue current medications - Start amlodipine - Recommend home blood pressure monitoring, to bring results to next visit - Encouraged sodium restriction, DASH or Mediterranean diet - Recommend regular aerobic exercise - Discussed need for and benefit of weight loss. BMI 38.07 kg/(m2) - Follow up in 4 weeks for hypertension visit - BASIC METABOLIC PANEL - AMLODIPINE 2.5 MG TABLET 2. Current moderate episode of major depressive disorder without prior episode (HCC) - ICD9: 296.22, ICD10: F32.1 - discussed medication change- wants to wait and see - declines counseling - follow-up as needed Lidia Podlogsenthil, VIRI.WIRELESS NETWORK ENGINEER Prescription instructions reviewed with patient as applicable. Patient advised if symptoms do not improve or if symptoms worsen sooner, to contact their primary care physician. Potential red flag symptoms discussed with the patient. Reviewed appropriate action plan to take if red flag symptoms occur. Patient agreeable to treatment plan. Medical Decision Making: Problems: Moderate: New problem with uncertain prognosis Risk: Moderate: Drug management Medical Decision Making Level: 4 - Moderate Allergies As of Date: 04/16/2024 Noted Allergy Reaction LISINOPRIL (BULK) 07/14/2017 3 - Cough WELLBUTRIN (BUPROPION) 09/06/2023 14 - Other: See Comments Comments: Anxiety ZOLOFT (SERTRALINE) 08/11/2020 14 - Other: See Comments Comments: Sexual side effects. Date Reviewed: 04/16/2024 Reviewed by: Neena Davalos LPN - Fully Assessed Reason for Visit: Follow Up [171] Cmt: BP AND depression Primary Visit Diagnosis:Essential hypertension [I10] Other Visit Diagnosis:Current moderate episode of major depressive disorder without prior episode (HCC) [F32.1] Order(s):amLODIPine (NORVASC) 2.5 mg tabletTake 1 tablet by mouth once daily.Disp: 30 tabletRfl: 1 Prescriptions as of 04/16/2024 - meloxicam (MOBIC) 15 mg tablet Take 1 tablet by mouth daily with food. - amLODIPine (NORVASC) 2.5 mg tablet Take 1 tablet by mouth once daily. - metoprolol succinate ER (TOPROL XL) 50 mg 24 hr tablet Take 1 tablet by mouth once daily. - losartan (COZAAR) 100 mg tablet Take 1 tablet by mouth once daily. - potassium chloride (K-TAB) 10 mEq tablet Take 1 tablet by mouth daily with breakfast. - FLUoxetine (PROZAC) 40 mg capsule Take 1 capsule by mouth once daily. - hydroCHLOROthiazide 50 mg tablet Take 1 tablet by mouth once daily. - aspirin 325 mg tablet Take 1 tablet by mouth two times a day for 28 days. - atorvastatin (LIPITOR) 10 mg tablet Take 1 tablet by mouth daily at bedtime. For cholesterol. - metFORMIN (GLUCOPHAGE) 500 mg tablet Take 1 tablet by mouth two times a day with meals. - COMPOUNDED PRESCRIPTION Take by mouth once daily. 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 Disposition: Return in about 4 weeks (around 05/14/2024). Follow-up and Disposition History for Encounter Date Provider Department Center 04/16/2024 [id number] VAUGHAN [facility] Yony Encounter Status:Closed by LIDIA VAUGHAN on 04/16/24 CNPN Observed: 04/12/2024 12:00 AM Status: COMPLETED Source: [facility] Telephone (FAMPWS) LISHAHETAL ([id number]) 1970 M Date Time Provider Department 04/12/24 IKE JACK [employer]UR[employer] During your visit today, we recorded the following information about you: Leanne Drake LPN 04/12/2024 10:48 AM Signed ----- Message from Ike Jack MD sent at 04/12/2024 9:26 AM EDT ----- Normal blood counts. LFTs remain mildly elevated consistent with history of fatty liver disease noted on recent CT scan. Advanced fibrosis risk is low based on these results. I would not recommend further imaging at this time. Continue to avoid tylenol and alcohol and will recheck at future OV. Leanne Drake LPN 04/12/2024 10:49 AM Signed Left a message for pt to call the office and ask to speak to a nurse. MARVA Byers Sherrie, RN 04/12/2024 11:21 AM Signed Patient returned call and given provider's message below and patient verbalized understanding. Dee Shea RN Allergies As of Date: 04/12/2024 Noted Allergy Reaction LISINOPRIL (BULK) 07/14/2017 3 - Cough WELLBUTRIN (BUPROPION) 09/06/2023 14 - Other: See Comments Comments: Anxiety ZOLOFT (SERTRALINE) 08/11/2020 14 - Other: See Comments Comments: Sexual side effects. Date Reviewed: 03/30/2024 Reviewed by: Edgardo Villalobos LPN - Fully Assessed Reason for Visit: Results [95] Prescriptions as of 04/12/2024 - metoprolol succinate ER (TOPROL XL) 50 mg 24 hr tablet Take 1 tablet by mouth once daily. - losartan (COZAAR) 100 mg tablet Take 1 tablet by mouth once daily. - potassium chloride (K-TAB) 10 mEq tablet Take 1 tablet by mouth daily with breakfast. - FLUoxetine (PROZAC) 40 mg capsule Take 1 capsule by mouth once daily. - meloxicam (MOBIC) 15 mg tablet Take 1 tablet by mouth daily with food. - hydroCHLOROthiazide 50 mg tablet Take 1 tablet by mouth once daily. - aspirin 325 mg tablet Take 1 tablet by mouth two times a day for 28 days. - atorvastatin (LIPITOR) 10 mg tablet Take 1 tablet by mouth daily at bedtime. For cholesterol. - metFORMIN (GLUCOPHAGE) 500 mg tablet Take 1 tablet by mouth two times a day with meals. - COMPOUNDED PRESCRIPTION Take by mouth once daily. Centrum Silver multivitamin Problem List As Of Date 04/12/2024 Noted Resolved Hypermetropia of both eyes [H52.03] 05/20/2017 Hypertension [I10] Obesity (BMI 30-39.9) [E66.9] Sleep apnea [G47.30] Current moderate episode of major depressive di* Vertigo [R42] 08/11/2020 Mixed hyperlipidemia [E78.2] Prediabetes [R73.03] Achilles tendinitis, left leg [M76.62] 04/08/2023 Calcaneal spur of foot, left [M77.32] 04/29/2023 Former smoker [Z87.891] 08/19/2023 Obesity, Class I, BMI 30-34.9 [E66.811] 2023 Encounter Status:Closed by NAA SHEA on 04/12/24 CBC W AUTO DIFF BLD Collected: 04/11/2024 8:[address] atus: F Source: [facility] Order Comment: Specimen Type : BLOOD SPECIMEN Ordering Facility: [facility] Address: [address] [place] [address] TYPE CODE TESTS RESULT OUT OF RANGE REFERENCE UNITS LAB 6690-2(LOINC) WBC # Bld Auto 6.84 3.70-11.00 k/uL LAB 789-8(LOINC) RBC # Bld Auto 4.64 4.20-6.00 m/ uL LAB 718-7(LOINC) Hgb Bld-mCnc 15.0 13.0-17.0 g/dL LAB 4544-3([facility]) Hct VFr Bld Auto 44.8 39.0-51.0 % LAB 787-2([facility]) MCV RBC Auto 96.6 80.0-100.0 fL LAB 785-6([facility]) MCH RBC Qn Auto 32.3 26.0-34.0 p g LAB 786-4([facility]) MCHC RBC Auto-mCnc 33.5 30.5-36.0 g/dL LAB 95616-4([facility]) RDW RBC-Rto 12.3 11.5-15.0 % LAB 777-3([facility]) Platelet # Bld Auto 245 150-400 k/uL LAB 67384-0([facility]) PMV Bld Auto 9.4 9.0-12.7 fL LAB 770-8([facility]) Neutrophils/leuk NFr Bld Auto 45.5 % LAB 751-8([facility]) Neutrophils # Bld Auto 3.11 1.45-7.50 k/uL LAB 736-9([facility]) Lymphocytes/leuk NFr Bld Auto 39.2 % LAB 731-0([facility]) Lymphocytes # Bld Auto 2.68 1.00-4.00 k/uL LAB 5905-5([facility]) Monocytes/leuk NFr Bld Auto 8.3 % LAB 742-7([facility]) Monocytes # Bld Auto 0.57 <0.87 k/uL LAB 713-8([facility]) Eosinophil/leuk NFr Bld Auto 5.7 % LAB 711-2([facility]) Eosinophil # Bld Auto 0.39 <0.46 k/uL LAB 706-2([facility]) Basophils/leuk NFr Bld Auto 0.9 % LAB 704-7([facility]) Basophils # Bld Auto 0.06 <0.11 k/uL LAB 39126-8([facility]) Imm Granulocytes/neli k NFr Bld Auto 0.4 % LAB 75273-9([facility]) Imm Granulocytes # Bld Auto 0.03 <0.10 k/uL LAB 57016-2([facility]) nRBC/100 WBC Bld-Rto 0.0 /100 WBC LAB 771-6(LOINC) nRBC # Bld Auto <0.01 <0.01 k/u L LAB 59396-4([facility]) Differential method Bld Auto Performed By: #### 80849-6 # ### [facility] CLIA [id number] [facility] [address] [place] COMP METAB 2000 PNL SERPL Collected: 8:22 AM Status: F Source: [facility] Order Comment: Specimen Type : BLOOD SPECIMEN Ordering Facility: [facility] Address: [address] [place] [address] TYPE CODE TESTS RESULT OUT OF RANGE REFERENCE UNITS LAB 2885-2(INC) Prot SerPl-mCnc 6.8 6.3-8.0 g/dL LAB 1751-7(LOINC) Albumin SerPl-mCnc 4.3 3.9-4.9 g/dL LAB 94345-7(LOINC) Calcium SerPl-mCnc 9.2 8.5-10.2 mg/dL LAB 1975-2(LOINC) Bilirub SerPl-mCnc 0.9 0.2-1.3 mg/dL LAB 6768-6(LOINC) ALP SerPl-cCnc 59 38-113 U/L LAB 1920-8(LOINC) AST SerPl-cCnc 46 High 14-40 U/L LAB 1742-6(LOINC) ALT SerPl-cCnc 104 High 10-54 U/L LAB 2345-7(LOINC) Glucose SerPl-mCnc 141 High 74-99 mg/dL Result Comment: The [place] Diabetes Association (ADA) provides guidance for cutoff values for fasting glucose and random glucose. The ADA defines fasting as no caloric intake for at least 8 hours. Fasting plasma glucose results between 100 to 125 mg/dL indicate increased risk for diabetes (prediabetes). Fasting plasma glucose results greater than or equal to 126 mg/dL meet the criteria for diagnosis of diabetes. In the absence of unequivocal hyperglycemia, results should be confirmed by repeat testing. In a patient with classic symptoms of hyperglycemia or hyperglycemic crisis, random plasma glucose results greater than or equal to 200 mg/dL meet the criteria for diagnosis of diabetes. Reference: Standards of Medical Care in Diabetes 2016, [place] [employer] Association. Diabetes Care. 2016.39(Suppl 1). LAB 3094-0(LOINC) BUN SerPl-mCnc 18 9-24 mg/ dL LAB 2160-0(LOINC) Creat SerPl-mCnc 0.80 0.73-1.22 mg/dL LAB 2951-2(LOINC) Sodium SerPl-sCnc 139 136-144 mmol/L LAB 2823-3(LOINC) Potassium SerPl-sCnc 4.1 3.7-5.1 mmol/L LAB 2075-0(LOINC) Chloride SerPl-sCnc 101 98-107 mmol/L LAB 2028-9(LOINC) CO2 SerPl-sCnc 28 22-30 mmo l/L LAB 82507-0(LOINC) Anion Gap SerPl-sCnc 10 8-15 mmol/L LAB 96344-4(LOINC) Creatinine + eGFR Pnl SerPlBld 105 >=60 mL/min/1 .73m??? Result Comment: Estimated Gl omerular Filtration Rate (eGFR) is calculated using the 2020 CKD-EPI creatinine equation. This equation utilizes serum creatinine, sex, and age as parameters. The creatinine assay has traceable calibration to isotope dilution-mass spectrometry. Refer to KDIGO guidelines for clinical interpretation. In patients with unstable renal function, e.g. those with acute kidney injury, the eGFR may not accurately reflect actual GFR. Performed By: #### 47969-4 # ### [facility] CLIA [id number] [address] [place] [address] STATES OF [facility] THERAPY NT Observed: 04/10/2024 5:47 PM Status: COMPLETED Source: [facility] HNO ID: [id number] Author: THAD SRIVASTAVA, PT Service: ? Author Type: Physical Therapist Type: Therapy (PT/OT/Speech/Resp) Filed: 04/10/2024 17:47 Note Text: Program_ID:[id number] Access Code: [email or web address] URL: [email or web address] Date: 04-10-2024 Prepared By: Alejo Shepard Program Notes Exercises - Long Sitting Calf Stretch with Strap - 1 x daily - 7 x weekly - 5 sets - 1 reps - Long Sitting Ankle Plantar Flexion with Resistance - 1 x daily - 7 x weekly - 4 sets - 10 reps - Sidelying Hip Abduction - 1 x daily - 7 x weekly - 4 sets - 10 reps - Clamshell with Resistance - 1 x daily - 7 x weekly - 4 sets - 10 reps CNTHERAPY Observed: 04/10/2024 5:30 PM Status: COMPLETED Source: [facility] OT/PT/Speech Visit (PTWS) HETAL HUSAIN ([id number]) 1970 M Date Time Provider Department 04/10/24 5:30 PM THAD SRIVASTAVA PTWS Date Time Provider Department Center 04/10/2024 5:30 PM [id number], COREY PTWS Yony Ramirez Reason for Visit: Physical Therapy [503] Primary Visit Diagnosis:Achilles tendinitis, left leg [M76.62] Allergies As of Date: 04/10/2024 Noted Allergy Reaction LISINOPRIL (BULK) 07/14/2017 3 - Cough WELLBUTRIN (BUPROPION) 09/06/2023 14 - Other: See Comments Comments: Anxiety ZOLOFT (SERTRALINE) 08/11/2020 14 - Other: See Comments Comments: Sexual side effects. Date Reviewed: 03/30/2024 Reviewed by: Edgardo Villalobos LPN - Fully Assessed Prescriptions as of 04/10/2024 - metoprolol succinate ER (TOPROL XL) 50 mg 24 hr tablet Take 1 tablet by mouth once daily. - losartan (COZAAR) 100 mg tablet Take 1 tablet by mouth once daily. - potassium chloride (K-TAB) 10 mEq tablet Take 1 tablet by mouth daily with breakfast. - FLUoxetine (PROZAC) 40 mg capsule Take 1 capsule by mouth once daily. - meloxicam (MOBIC) 15 mg tablet Take 1 tablet by mouth daily with food. - hydroCHLOROthiazide 50 mg tablet Take 1 tablet by mouth once daily. - aspirin 325 mg tablet Take 1 tablet by mouth two times a day for 28 days. - atorvastatin (LIPITOR) 10 mg tablet Take 1 tablet by mouth daily at bedtime. For cholesterol. - metFORMIN (GLUCOPHAGE) 500 mg tablet Take 1 tablet by mouth two times a day with meals. - COMPOUNDED PRESCRIPTION Take by mouth once daily. Centrum Silver multivitamin Weatherization Field Technician: Therapy (PT/OT/Speech/Resp) ID: [id number] 04/10/2024 5:47 PM Author: THAD SRIVASTAVA Signed by THAD SRIVASTAVA PT on 04/10/2024 at 5:47 PM Document text: Program_ID:[id number] Access Code: [email or web address] URL: [email or web address] Date: 04-10-2024 Prepared By: Alejo Shepard Program Notes Exercises - Long Sitting Calf Stretch with Strap - 1 x daily - 7 x weekly - 5 sets - 1 reps - Long Sitting Ankle Plantar Flexion with Resistance - 1 x daily - 7 x weekly - 4 sets - 10 reps - Sidelying Hip Abduction - 1 x daily - 7 x weekly - 4 sets - 10 reps - Clamshell with Resistance - 1 x daily - 7 x weekly - 4 sets - 10 reps PROGRESS Observed: 04/10/2024 5:19 PM Status: COMPLETED Source: [facility] HNO ID: [id number] Author: THAD SRIVASTAVA PT Service: ? Author Type: Physical Therapist Type: Progress Notes Filed: 04/10/2024 17:56 Note Text: Episode Visit Count: 2 Therapist That Will Accept/Oversee The Plan Of Care: Thad Srivastava PT Start of Care Date: 03/29/24 Onset Date: 10/09/22 Patient Identified by Name and Date of : Yes REHABILITATION AND SPORTS THERAPY PHYSICAL THERAPY TREATMENT NOTE ASSESSMENT: Hetal Husain tolerated the session with fatigue and expected muscle soreness. He demonstrated improvements in tolerance to therapeutic exercises. The patient will continue to benefit from ongoing skilled physical therapy to progress toward set goals. PLAN FOR NEXT VISIT: Continue to strengthen the achilles tendon SUBJECTIVE: The calf feels sore. Woke up with the soreness. Feels he is doing steps better and can put more pressure into his toe when walking and pushing off. Pain: Pain Pain Level: (not rated) Pain Location: Heel - Left OBJECTIVE MEASURES WITH LEVEL OF FUNCTION: Tender along the lateral gastrocnemius head TREATMENT: Therapeutic Exercise: 1: Long-sitting ankle PF against BTB 3 x 15 2: Seated B heel raises 3 x 15 3: Sidelying hip abduction 2 x 10 4: Seated gastrocnemius stretch with strap 3 x 30 sec Skilled Intervention: Patient was educated in proper exercise technique and purpose for exercises. Correct performance of therapeutic exercises was facilitated with verbal and visual cuing. Manual Therapy: 1: STM along lateral and medial gastroc heads Skilled Intervention: Manual skills to improve joint mobility, ROM, and decrease pain. Utilized anatomy knowledge of the therapist, and assessment of patient's response to intervention. Billing Therapeutic Exercise Treatment Minutes: 29 Manual TherapyTreatment Minutes: 10 Skilled Treatment Time Minutes (timed and untimed codes): 39 Total Session Time (minutes): 39 Session Start Time : 1717 Session Stop Time : 1756 Thad Srivastava PT ALLERGIES DATE TYPE / CODE NAME / CODE REACTION SEVERITY SOURCE 03/13/2025 DRUG INGREDI/869602 003(SNOMED CT) LISINOPRIL Cough [facility] 03/13/2025 DRUG INGREDI/734176 003(SNOMED CT) SILDENAFIL Itching [facility] 03/13/2025 DRUG INGREDI/730662 003(SNOMED CT) BUPROPION HCL Itching [facility] 03/13/2025 DRUG INGREDI/828653 003(SNOMED CT) SERTRALINE Itching [facility] 02/20/2025 DRUG INGREDI/692984 003(SNOMED CT) SILDENAFIL OTHER: SEE [facility] 09/06/2023 DRUG INGREDI/527088 003(SNOMED CT) BUPROPION OTHER: SEE [facility] 08/11/2020 DRUG INGREDI/581432 003(SNOMED CT) SERTRALINE OTHER: SEE [facility] 07/14/2017 DRUG/[id number] (SNOMED CT) LISINOPRIL (BULK) COUGH [facility] ENCOUNTERS ADMIT/DISCHARGE ACCOUNT NUMBER ADMITTING ENCOUNTER CLASS LOCATION SOURCE 04/05/2025/ [id number] [facility] 03[facility]13/2025/ 5 [id number] Ambulatory Building:[facility] 03/13/2025/ 5 [id number] Ambulatory Building:[address] [facility] 02/26/2025/ 5 [id number] [facility] 5 [id number] [facility]20[facility]/ 5 [id number] [facility] 02/20/2025/ 5 [id number] [facility] 11/30/2024/ 5 [id number] [facility] 11/30/2024/ 5 [id number] [facility] 11/16/2024 [id number] [facility] 5 [id number] [facility] 11/16/2024/ 5 [id number] [facility] 09[facility]06/2024/ 5 [id number] [facility] 08/30/2024 [id number] [facility] 08/15/2024/ 5 [id number] [facility] 08/09/2024/ 5 [id number] [facility] 08/03/2024/ 5 [id number] [facility] 08/03/2024/ 5 [id number] [facility] 07/17/2024/ 5 [id number] [facility] 07/17/2024/ 5 [id number] [facility] 05/24/2024/ 4 [id number] [facility] 05/18/2024/ 4 [id number] [facility] 05/11/2024/ 4 [id number] [facility] 04/24/2024/ 4 [id number] [facility] 04/19/2024/ 4 [id number] [facility] 04/17/2024/ 4 [id number] [facility] 04/16/2024/ 4 [id number] [facility] 04/11/2024/ 4 [id number] [facility] 04/10/2024/ 4 [id number] [facility] PAYERS ENCOUNTER GUARANTOR PAYER SUBSCRIBER SOURCE 04/05/2025 Primary Insurance:BLUE ACCESS PPOPolicy Number: [id number] catracho Date:7599-46-58Abm n Name:Lucy LEDEZMA: [id number] [place] [address] [facility] 03/13/2025 HETAL LEDEZMA: [id number] [place], [place] [address]Aat: () Primary Insurance:ANTHEMPo licy Number: [id number] catracho Date:2024-07-11 SASHA LEDEZMA: [id number] [place], [place] [address]Vuk: () [facility] 03/13/2025 HETAL LEDEZMA: [id number] [place], [place] [address]Ivs: () Primary Insurance:ANTHEMPo licy Number: [id number] catracho Date:2024-07-11 SASHA LEDEZMA: [id number] [place], [place] [address]Lqp: () [facility] 02/26/2025 Primary Insurance:BLUE ACCESS PPOPolicy Number: [id number] catracho Date:0563-03-48Znt n Name:Lucy LEDEZMA: [id number] [place] [address] [facility] 02/23/2025 Primary Insurance:BLUE ACCESS PPOPolicy Number: [id number] catracho Date:2164-44-09Epf n Name:Lucy LEDEZMA: [id number] [place] [address] [facility] 02/20/2025 Primary Insurance:BLUE ACCESS PPOPolicy Number: [id number] catracho Date:6540-76-81Evd n Name:Lucy LEDEZMA: [id number] [facility] [place] [address] [facility] 02/20/2025 Primary Insurance:BLUE ACCESS PPOPolicy Number: [id number] catracho Date:0766-32-77Wwr n Name:Lucy LEDEZMA: [id number] [place] [address] [facility] 11/30/2024 Primary Insurance:BLUE ACCESS PPOPolicy Number: [id number] catracho Date:8587-23-27Sxa n Name:Lucy LEDEZMA: [id number] [place] [address] [facility] 11/30/2024 Primary Insurance:BLUE ACCESS PPOPolicy Number: [id number] catracho Date:1892-69-51Gys n Name:Lucy MUELLERGonzalo: [id number] [place] [address] [facility] 11/16/2024 Primary Insurance:BLUE ACCESS PPOPolicy Number: [id number] catracho Date:0561-58-75Wpj n Name:Lucy LEDEZMA: [id number] [place] [address] [facility] 11/16/2024 Primary Insurance:BLUE ACCESS PPOPolicy Number: [id number] catracho Date:3311-70-73Fzf n Name:Lucy LEDEZMA: [id number] [place] [address] [facility] 11/16/2024 Primary Insurance:BLUE ACCESS PPOPolicy Number: [id number] catracho Date:3535-96-17Otx n Name:Lucy LEDEZMA: [id number] [place] [address] [facility] 09/06/2024 Primary Insurance:BLUE ACCESS PPOPolicy Number: [id number] catracho Date:7914-66-05Las n Name:Lucy HUSAINVINNIE: [id number] [place] [address] [facility] 08/30/2024 Primary Insurance:BLUE ACCESS PPOPolicy Number: [id number] catracho Date:9212-34-15Xne n Name:Lucy MUELLERGonzalo: [id number] [place] [address] [facility] 08/15/2024 Primary Insurance:BLUE ACCESS PPOPolicy Number: [id number] catracho Date:9159-97-93Mps n Name:Lucy LEDEZMA: [id number] [place] [address] [facility] 08/09/2024 Primary Insurance:BLUE ACCESS PPOPolicy Number: [id number] catracho Date:9619-62-46Jnl n Name:Lucy BAEZ DARIEN: [id number] [place] [address] [facility] 08/03/2024 Primary Insurance:BLUE ACCESS PPOPolicy Number: [id number] catracho Date:6638-12-37Pxg n Name:Lucy HUSAINVINNIE: [id number] [place] [address] [facility] 08/03/2024 Primary Insurance:BLUE ACCESS PPOPolicy Number: [id number] catracho Date:5896-74-56Zwn n Name:Lucy HUSAINVINNIE: [id number] [place] [address] [facility] 07/17/2024 Primary Insurance:BLUE ACCESS PPOPolicy Number: [id number] catracho Date:7978-96-47Ojh n Name:Lucy LEDEZMA: [id number] [place] [address] [facility] 07/17/2024 Primary Insurance:BLUE ACCESS PPOPolicy Number: [id number] catracho Date:7938-04-37Avb n Name:Lucy LEDEZMA: [id number] [place] [address] [facility] 05/24/2024 Primary Insurance:AULTCARE PPOPolicy Number: [id number] tive Date:3732-59-41Jux n Name:Laly SASHA LEDEZMA: [id number] [place] [address] [facility] 05/18/2024 Primary Insurance:[employer] PPOPolicy Number: [id number] tive Date:9936-06-71Gvw n Name:Y SASHA LEDEZMA: [id number] [place] [address] [facility] 05/11/2024 Primary Insurance:[employer] PPOPolicy Number: [id number] tive Date:4517-74-58Sdw n Name:Y SASHA LEDEZMA: [id number] [place] [address] [facility] 04/24/2024 Primary Insurance:[employer] PPOPolicy Number: [id number] tive Date:2775-10-64Zdm n Name:Laly SASHA LEDEZMA: [id number] [place] [address] [facility] 04/19/2024 Primary Insurance:[employer] PPOPolicy Number: [id number] tive Date:8343-70-15Lkj n Name:Laly SASHA LEDEZMA: [id number] [place] [address] [facility] 04/17/2024 Primary Insurance:[employer] PPOPolicy Number: [id number] tive Date:7629-48-06Fdi n Name:Laly SASHA LEDEZMA: [id number] [place] [address] [facility] 04/16/2024 Primary Insurance:[employer] PPOPolicy Number: [id number] tive Date:0852-84-92Eiy n Name:Laly LEDEZMA: [id number] [place] [address] [facility] 04/11/2024 Primary Insurance:[facility] Number: [id number] tive Date:1207-37-31Zyj n Name:Laly LEDEZMA: [id number] [place] [address] [facility] 04/10/2024 Primary Insurance:[facility] Number: [id number] tive Date:5949-36-15Hmw n Name:Laly LEDEZMA: [id number] [place] [address] [facility]
--- NOTE | 2025-04-05 21:16 | ED.RN ---
PT. NAME CALLED FOR ED ROOM AT 2114 W/ NO ANSWER. LEFT BEFORE SEEING A PROVIDER 2114.
== END 2025-04-05 21:15 | disposition left against medical advice (07) ==
LOC: ED 21:18
PROVIDERS: PCP Family Medicine
DX: Z53.21 Procedure and treatment not carried out due to patient leaving prior to being seen by health care provider (principal)